=== PATIENT | male | born 1930 | race Caucasian/White ===

== ENCOUNTER 2017-02-05 09:12 | Inpatient (IN) | payer BC, OTHER ==
[~2017-02-05] VITALS: Ht 170.2 cm; Wt 88.0 kg
[~2017-02-05 09:12] MED LIST: ALFU10TA30 PO; APIX1TAB3 PO; CALC600T68 PO; CHOL1000 PO; CLB/200 PO; CLXOPS3 OPR; FINA5TAB4 PO; FRS/40 PO; HYDR-5688 PO; LIDO5DIS10 TD; MIDO2.5T PO; MIDO5TAB PO; MIRA1TAB3 PO; MIRT15TA PO; MRLP17 PO; MULT-506 PO; OMEP40CA PO; RIVA9.5D TD; SENN-61 PO; SNM/25100 PO
--- NOTE | 2017-02-05 10:09 | DIAGNOSTIC IMAGING REPORT ---
CHEST ONE VIEW PORTABLE CLINICAL HISTORY: infection dyspnea COMPARISON STUDY: 08/30/2015 FINDINGS: Moderate stable cardiomegaly. Mild increase in density left base possibly secondary to a superimposed infiltrative process. Moderate parenchymal fibrotic change unaltered from the prior study. IMPRESSION: 1. Diffuse parenchymal fibrosis. 2. Mild superimposed infiltrate left base. 3. Moderate stable cardia megaly. Electronically signed by: Rik Phan M.D. 02/05/2017 10:08 AM Dictated Date/Time: 02/05/2017 10:07 AM
[2017-02-05 10:14] LABS: URINE APPEARANCE CLEAR (CLEAR); URINE COLOR ORANGE; URINE EPITHELIAL CELL AUTO >30 /lpf (0-5); URINE NITRITE NEG (NEG); URINE PH 5.5 (4.5-7.5); URINE SPECIFIC GRAVITY 1.028 (1.000-1.030); UROBILINOGEN NEG (NEG)
[2017-02-05 10:16] LABS: BASO % 0.3 %; BASO ABS # 0.04 K/uL (0-0.2); COMPLETE YES; EOS % 0.1 %; HEMATOCRIT 38.9 % (42-52); IG% 1.1 %; LYMPH % 7.5 %; LYMPH ABS # 1.04 K/uL (1.2-3.4); MEAN CELL VOLUME 98.5 fL (80-100); MEAN CORPUSCULAR HEMOGLOBIN 32.9 pg (25-34); MEAN CORPUSCULAR HGB CONC 33.4 g/dl (32-36); MEAN PLATELET VOLUME 9.4 fL (7.4-10.4); MONO % 7.7 %; NEUT % 83.3 %; PLATELET COUNT 101 K/uL (130-400); RED BLOOD COUNT 3.95 M/uL (4.7-6.1); WHITE BLOOD COUNT 13.88 K/uL (4.8-10.8)
[2017-02-05 10:25] LABS: INR 1.3 (0.9-1.1); PARTIAL THROMBOPLASTIN RATIO 1.3
[2017-02-05] MEDS ORDERED: SODIUM CHLORIDE 0.9% 1000ML 1,000 ML IV STA ×2 (10:28→11:29)
[2017-02-05] MEDS ORDERED: CEFEPIME IV 2,000 MG in DEXTROSE 5% 100ML 100 ML IV STA (10:29)
[2017-02-05] MEDS ORDERED: VANCOMYCIN INJ 1,000 MG in SODIUM CHLORIDE 0.9% 250ML 250 ML IV STA (10:29)
[2017-02-05] MEDS ORDERED: AZITHROMYCIN IV 500 MG in DEXTROSE 5% 250ML 250 ML IV ONE (10:30)
[2017-02-05 10:33] LABS: BUN/CREATININE RATIO 32.2 (10-20); CALCIUM 8.8 mg/dl (8.5-10.1); MAGNESIUM 2.6 mg/dl (1.8-2.4); POTASSIUM 4.1 mmol/L (3.5-5.1)
[2017-02-05] MEDS ORDERED: VANCOMYCIN 1GM/270ML NSS ONE (10:34)
[2017-02-05 10:35] LABS: URINE BILIRUBIN 1+ (NEG)
[2017-02-05 10:36] LABS: ALB/GLOB RATIO 0.6 (0.9-2)
[2017-02-05 10:43] LABS: MANUAL MICROSCOPIC REQUIRED? NO; REVIEW REQ? NO
[2017-02-05] MEDS ORDERED: FRS/40 PO (10:46)
[2017-02-05] MEDS ORDERED: TRAM-10 PO ×2 (10:46→12:07)
[2017-02-05] MEDS ORDERED: ALBINS/ INH (10:46)
[2017-02-05] MEDS ORDERED: PRLSR20 PO (10:46)
[2017-02-05] MEDS ORDERED: LEVO1TAB35 PO (10:46)
[2017-02-05] MEDS ORDERED: FINA5TAB PO (10:46)
[2017-02-05] MEDS ORDERED: RBTDMUDL5 PEG (10:46)
[2017-02-05] MEDS ORDERED: RIVA1DIS TD (10:46)
[2017-02-05] MEDS ORDERED: IBUP-1050 PO (10:46)
[2017-02-05] MEDS ORDERED: NYSS5 PO (10:46)
[2017-02-05] MEDS ORDERED: MULT-513 PO (10:54)
[2017-02-05] MEDS ORDERED: SENN-61 PO (10:54)
[2017-02-05] MEDS ORDERED: CHOL100010 PO (10:54)
[2017-02-05] MEDS ORDERED: POLY335019 PO (10:54)
[2017-02-05] MEDS ORDERED: CALC-342 PO (10:54)
[2017-02-05] MEDS ORDERED: PRMT25 PO (10:54)
[2017-02-05] MEDS ORDERED: APIX1TAB3 PO (10:54)
[2017-02-05] MEDS ORDERED: CARB25TA12 PO (10:54)
[2017-02-05] MEDS ORDERED: ALFU10TA30 PO (10:54)
[2017-02-05] MEDS ORDERED: FESO8TAB PO (10:54)
[2017-02-05] MEDS ORDERED: MELA3TAB PO (10:54)
--- NOTE | 2017-02-05 10:58 | EMERGENCY ROOM VISIT NOTE ---
History Report prepared by Reagan: Violet Kang Under the Supervision of: Dr. Shantelle Frausto D.O. First contact with patient: 10:04 Chief Complaint: INFECTION Stated Complaint: LETHARGIC Nursing Triage Summary: pt arrives via ALS from [facility] per [facility] for the past 2 weeks they have been treating him for an unknown infection He has received levaquin PO and Rocephin IM His left arm is swollen and that is now new He had a fever Friday 02/02 He usually is on Room Air and confused but ambulates with 1 assist pt is rousable to verbal stimuli at this time, states no pain History of Present Illness The patient is a 86 year old male who presents to the Emergency Room with complaints of a worsening infection for the past week. The patient is a resident at [facility]. Per staff there, the patient has had a fever and cough for the past week. He was given 1 dose of Rocephin 3 days ago and it currently on Levaquin. He has also received Solu-Medrol. The patient is normally able to ambulate with a walker and has only occasional confusion. Today he is lethargic and not acting normally. The patient had a negative CXR, negative flu, and negative respiratory panel today. He had a slightly elevated bilirubin. He denied abdominal pain, nausea, and vomiting. He was sent to the ED for further evaluation. The history is limited due to the patient's AMS. Source of History: patient, longterm notes History Limited By: AMS Onset: 1 week ago Position: other (global) Quality: other (infection) Timing: worsening Associated Symptoms: + fevers, + cough, No nausea, No vomiting, No abdominal pain Review of Systems See HPI for pertinent positives & negatives. A total of 10 systems reviewed and were otherwise negative. Past Medical & Surgical Medical Problems: (1) Altered mental status (2) Parkinson's disease (3) Rhabdomyolysis (4) Sepsis Surgical Problems: (1) Knee joint replacement status Family History Patient reports no known family medical history. Social History Smoking Status: Never Smoker Drug Use: none Marital Status: Housing Status: longterm Occupation Status: retired Current/Historical Medications Scheduled Albuterol Sulf (Proventil 0.083% 2.5MG/3ML), 3 ML INH QID Alfuzosin Hcl (Uroxatral), 10 MG PO HS Apixaban (Eliquis), 5 MG PO HS Calcium Carbonate-Vitamin D (Calcium 600+D), 1 TAB PO QAM Carbidopa/Levodopa (Sinemet 25MG/100MG), 2 TAB PO QID Cholecalciferol (Vitamin D), 1,000 UNITS PO QAM Fesoterodine Fumarate (Toviaz), 1 TAB PO DAILY Finasteride (Proscar), 5 MG PO QAM Levofloxacin (Levaquin), 750 MG PO QAM Melatonin (Melatonin), 3 MG PO QPM Midodrine (Midodrine HCl), 2.5 MG PO TID Midodrine Hcl (Midodrine Hcl), 5 MG PO TID Multivitamins/Minerals (Mvi With Minerals), 1 TAB PO DAILY Nystatin (Nystatin), 5 ML PO QID Omeprazole (Prilosec), 20 MG PO QAM Polyethylene Glycol 3350 (Miralax), 17 GM PO QAM Rivastigmine (Exelon), 1 PATCH TD QAM Senna (Senokot), 1 TAB PO QAM Tramadol (Ultram), 25 MG PO AMPM Scheduled PRN Dextromethorphan-Guaifenesin (Robitussin-Dm Syrup), 10 ML PEG Q6 PRN for Cough Furosemide (Lasix), 40 MG PO PRN PRN for WEIGHT GAIN Ibuprofen (Advil), 200 MG PO Q4 PRN for Fever Tramadol (Ultram), 25 MG PO Q12 PRN for Breakthrough Pain Allergies Coded Allergies: Acetaminophen (Verified Adverse Reaction, Mild, 08/30/15) "BAD FOR MY LIVER" Physical Exam Vital Signs Date Time Temp Pulse Resp B/P (MAP) Pulse Ox O2 Delivery O2 Flow Rate FiO2 02/05/17 13:08 77 02/05/17 12:57 78 35 123/75 96 02/05/17 12:06 75 30 02/05/17 12:01 122/69 02/05/17 11:51 75 31 02/05/17 11:46 113/62 02/05/17 11:36 73 34 02/05/17 11:31 107/77 02/05/17 11:21 73 31 02/05/17 11:16 108/65 02/05/17 11:06 72 29 02/05/17 11:00 117/67 02/05/17 10:51 68 35 02/05/17 10:46 115/63 02/05/17 10:36 76 31 02/05/17 10:31 120/72 02/05/17 10:27 78 32 02/05/17 10:16 149/76 02/05/17 10:12 85 25 02/05/17 10:01 106/65 02/05/17 09:58 37.6 104 32 97/62 92 Nasal Cannula 4.0 02/05/17 09:57 64 30 97/62 92 02/05/17 09:55 104 32 97/62 92 Nasal Cannula 4.0 02/05/17 09:52 37.6 02/05/17 09:42 86 32 87 02/05/17 09:32 105/64 02/05/17 09:27 81 22 02/05/17 09:19 76 02/05/17 09:17 37.6 83 14 94/62 94 Nasal Cannula 2.0 02/05/17 09:15 94/62 Physical Exam GENERAL: warm to touch, pale appearing, well nourished, no distress, non-toxic EYE EXAM: normal conjunctiva, pupils reactive bilaterally, discharge bilaterally , no evidence of conjunctivitis, no periorbital edema. OROPHARYNX: no exudate, no erythema. Lips, buccal mucosa, and tongue normal and mucous membranes are dry. No mucocutaneous lesions. NECK: supple, no nuchal rigidity, no adenopathy, non-tender LUNGS: Fine bibasilar rales. Normal chest wall mechanics HEART: no murmurs, S1 normal and S2 normal ABDOMEN: abdomen soft, non-tender, normo-active bowel sounds, no masses, no rebound or guarding. BACK: Back is symmetrical on inspection and there is no deformity, no midline tenderness, no CVA tenderness. SKIN: no rashes. Bruising of various stages to bother upper extremities UPPER EXTREMITIES: Mild left upper extremity edema. LOWER EXTREMITIES: No pitting edema. Bilateral scars from knee replacements. NEURO EXAM: Patient is arousable, will talk but confused, won't follow commands to complete a neuro exam. Medical Decision & Procedures ER Provider Diagnostic Interpretation: Radiology results have been interpreted by the radiologist and reviewed by me. CHEST ONE VIEW PORTABLE CLINICAL HISTORY: infection dyspnea COMPARISON STUDY: 08/30/2015 FINDINGS: Moderate stable cardiomegaly. Mild increase in density left base possibly secondary to a superimposed infiltrative process. Moderate parenchymal fibrotic change unaltered from the prior study. IMPRESSION: 1. Diffuse parenchymal fibrosis. 2. Mild superimposed infiltrate left base. 3. Moderate stable cardiomegaly. Electronically signed by: Rik Phan M.D. 02/05/2017 10:08 AM Dictated Date/Time: 02/05/2017 10:[address] NON[address]AST CT DOSE: 614.27 mGy.cm HISTORY: Mental status change confusion TECHNIQUE: Multiaxial CT images of the head were performed without the use of intravenous contrast. 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 HISTORY: Of subacute left occipital infarct. Mild chronic small vessel changes identified throughout both cerebral hemispheres. This may be slightly progressive compared to the prior study. There is no evidence for acute intracranial hemorrhage. There is no midline shift. Impression: 1. Subacute left occipital infarct. 2. Moderate chronic small vessel change. 3. No evidence for acute intracranial hemorrhage. Electronically signed by: Rik Phan M.D. 02/05/2017 12:34 PM Dictated Date/Time: 02/05/2017 12:31 PM ULTRASOUND LEFT UPPER EXTREMITY VENOUS CLINICAL HISTORY: Upper extremity edema. COMPARISON STUDY: No priors. TECHNIQUE: Real-time, grayscale, and color Doppler sonography of the deep veins of the left upper extremity is performed. Compression and augmentation were utilized. FINDINGS: There is no sonographic evidence of deep venous thrombosis identified in the left upper extremity. The left internal jugular, axillary, and brachial veins are patent and normally compressible. Normal venous waveforms and augmentation are seen within the left subclavian vein. The cephalic and basilic veins are clear. The visualized radial and ulnar veins are patent. IMPRESSION: There is no sonographic evidence of deep venous thrombosis identified in the left upper extremity. Electronically signed by: Manpreet Potter M.D. 02/05/2017 1:03 PM Dictated Date/Time: 02/05/2017 12:50 PM Laboratory Results Test 02/05/17 00:00 02/05/17 09:49 02/05/17 10:35 Urine Color ORANGE Urine Appearance CLEAR (CLEAR) Urine pH 5.5 (4.5-7.5) Urine Specific Seibert 1.028 (1.000-1.030) Urine Protein 1+ (NEG) Urine Glucose (UA) NEG (NEG) Urine Ketones TRACE (NEG) Urine Occult Blood NEG (NEG) Urine Nitrite NEG (NEG) Urine Bilirubin 1+ (NEG) Urine Urobilinogen NEG (NEG) Urine Leukocyte Esterase TRACE (NEG) Urine WBC (Auto) 1-5 /hpf (0-5) Urine RBC (Auto) 0-4 /hpf (0-4) Urine Hyaline Casts (Auto) 1-5 /lpf (0-5) Urine Epithelial Cells (Auto) >30 /lpf (0-5) Urine Bacteria (Auto) NEG (NEG) Nucleated RBC Absolute Count (auto) 0.03 K/uL (0-0) Nucleated Red Blood Cells % 0.2 % Prothrombin Time 14.0 SECONDS (9.0-12.0) Prothromb Time International Ratio 1.3 (0.9-1.1) Activated Partial Thromboplast Time 33.2 SECONDS (21.0-31.0) Partial Thromboplastin Ratio 1.3 Magnesium Level 2.6 mg/dl (1.8-2.4) Total Bilirubin 1.8 mg/dl (0.2-1) Aspartate Amino Transf (AST/SGOT) 37 U/L (15-37) Alanine Aminotransferase (ALT/SGPT) 16 U/L (12-78) Alkaline Phosphatase 60 U/L (45-117) Pro-B-Type Natriuretic Peptide 3606 pg/ml (0-1800) Total Protein 5.6 gm/dl (6.4-8.2) Albumin 2.2 gm/dl (3.4-5.0) Globulin 3.4 gm/dl (2.5-4.0) Albumin/Globulin Ratio 0.6 (0.9-2) Thyroid Stimulating Hormone (TSH) 0.544 uIu/ml (0.300-4.500) Bedside Lactic Acid Venous 2.14 mmol/L (0.90-1.70) Laboratory results per my review. Medications Administered Medications (Trade) Dose Ordered Sig/Khurram Route Start Time Stop Time Status Last Admin Dose Admin Sodium Chloride 1,000 ml @ 999 mls/hr Q1H1M STAT IV 02/05/17 10:28 02/05/17 11:28 DC 02/05/17 10:43 999 MLS/HR Vancomycin HCl 1000 mg/Sodium Chloride 270 ml @ 125 mls/hr NOW STAT IV 02/05/17 10:29 02/05/17 12:38 DC 02/05/17 10:29 125 MLS/HR Azithromycin 500 mg/Dextrose 255 ml @ 125 mls/hr ONE ONCE IV 02/05/17 10:30 02/05/17 12:32 DC 02/05/17 11:23 125 MLS/HR Cefepime HCl 2000 mg/Dextrose 112.5 ml @ 200 mls/hr NOW STAT IV 02/05/17 10:29 02/05/17 11:02 DC 02/05/17 10:45 200 MLS/HR Sodium Chloride 1,000 ml @ 250 mls/hr Q4H STAT IV 02/05/17 11:29 02/05/17 15:28 DC 02/05/17 11:29 250 MLS/HR Aspirin (Aspirin Supp) 300 mg NOW STAT OK 02/05/17 11:48 02/05/17 11:50 DC 02/05/17 11:48 300 MG ECG Indication: weakness Rate (beats per minute): 82 Rhythm: atrial fibrillation Findings: PVC, no acute ischemic change, other (normal axis, normal QRS, normal QTC) ED Course 1004: The patient was evaluated in room B11B. A complete history and physical exam was performed. 1028: NSS 1000 ml @ 999 mls/hr IV 1029: Cefepime HCl 2000 mg/Dextrose 112.5 ml @ 200 mls/hr IV, Vancomycin HCl 1000 mg/Sodium Chloride 270 ml @ 125 mls/hr IV 1030: Azithromycin 500 mg/Dextrose 255 ml @ 125 mls/hr IV 1129: NSS 1000 ml @ 250 mls/hr IV 1138: I reassessed the patient at this time. His daughter was at the bedside and states that he is altered from his baseline.She spoke with him on Sunday and he was acting normally. She reports that his left upper extremity swelling is new. She did confirm his code status as DNR/DNI. 1148: Aspirin 300 mg OK 1239: The patient is resting comfortably. I updated the patient's daughter on the results and treatment plan. I answered all pertaining questions that she had. She expressed understanding and verbalized agreement. 1251: I spoke with Dr. Velasquez. We discussed the patient's case. The patient will be evaluated by the [facility] for further management. Medical Decision Differential diagnosis includes etiologies such as sepsis, UTI, pneumonia, metabolic, electrolyte abnormalities, cardiac sources, intracerebral event, toxicologic, neurologic, as well as others were entertained. Medication Reconciliation: I attest that I have personally reviewed the patient' s current medication list. Blood pressure screening: Patient was found to be hypotensive on screening and does not require follow-up. Initially difficult exam given patient's past medical history and inability to provide adequate history. [facility] records are reviewed and is ordered. Patient improved here following hydration, and family eventually arrived to help with history and provide better baseline for the patient. Patient was confirmed to be DNR/DNI. Patient found to be septic, cultures drawn antibiotics started. Patient also found have subacute CVA additional imaging ordered after discussion with hospitalist. Patient given aspirin for elevated troponin as well as subacute infarct. Patient anticoagulated for his A. fib. No evidence of bleeding. Patient's vital signs improved here were stable in the emergency room. Did not feel patient required ICU level care at this time. Patient high-risk for deterioration, this was discussed with she and family at bedside, they verbalized understanding of all results as discussed were agreeable with plan for admission. Consults Time Called: 1240 Consulting Physician: Dr. Velasquez Returned Call: [address] Velasquez. We discussed the patients case. The patient will be evaluated by the [facility] for further management. Impression Primary Impression: Sepsis Additional Impressions: Pneumonia Altered mental status Left upper extremity swelling Elevated troponin Dehydration CVA (cerebral vascular accident) Critical Care I have personally spent greater than 40 minutes of critical care time in the direct management of this patient. This includes bedside care, interpretation of diagnostic studies, and testing, discussion with consultants, patient, and family members, and other required patient management activities. This 40 minutes is in excess of all separately billable procedures. Scribe Attestation The scribe's documentation has been prepared under my direction and personally reviewed by me in its entirety. I confirm that the note above accurately reflects all work, treatment, procedures, and medical decision making performed by me. Departure Information Dispostion Being Evaluated By Hospitalist Referrals Darrius Cardoza M.D. (PCP) Patient Instructions My [facility] Problem Qualifiers Primary Impression: Sepsis Sepsis type: sepsis due to unspecified organism Qualified Codes: A41.9 - Sepsis, unspecified organism Additional Impressions: Pneumonia Pneumonia type: due to unspecified organism Laterality: left Lung location : lower lobe of lung Qualified Codes: J18.1 - Lobar pneumonia, unspecified organism Altered mental status Altered mental status type: unspecified Qualified Codes: R41.82 - Altered mental status, unspecified CVA (cerebral vascular accident) CVA mechanism: unspecified Qualified Codes: I63.9 - Cerebral infarction, unspecified
[2017-02-05 11:16] LABS: THYROID STIMULATING HORMONE 0.544 uIu/ml (0.300-4.500)
[2017-02-05] MEDS ORDERED: ASPIRIN 300 MG SUPP PR STA (11:48)
[2017-02-05] MEDS ORDERED: MIDO5TAB PO (12:05)
--- NOTE | 2017-02-05 12:35 | DIAGNOSTIC IMAGING REPORT ---
HEAD CT NONCONTRAST CT DOSE: 614.27 mGy.cm HISTORY: Mental status change confusion TECHNIQUE: Multiaxial CT images of the head were performed without the use of intravenous contrast. 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 HISTORY: Of subacute left occipital infarct. Mild chronic small vessel changes identified throughout both cerebral hemispheres. This may be slightly progressive compared to the prior study. There is no evidence for acute intracranial hemorrhage. There is no midline shift. Impression: 1. Subacute left occipital infarct. 2. Moderate chronic small vessel change. 3. No evidence for acute intracranial hemorrhage. Electronically signed by: Rik Phan M.D. 02/05/2017 12:34 PM Dictated Date/Time: 02/05/2017 12:31 PM
--- NOTE | 2017-02-05 13:04 | DIAGNOSTIC IMAGING REPORT ---
ULTRASOUND LEFT UPPER EXTREMITY VENOUS CLINICAL HISTORY: Upper extremity edema. COMPARISON STUDY: No priors. TECHNIQUE: Real-time, grayscale, and color Doppler sonography of the deep veins of the left upper extremity is performed. Compression and augmentation were utilized. FINDINGS: There is no sonographic evidence of deep venous thrombosis identified in the left upper extremity. The left internal jugular, axillary, and brachial veins are patent and normally compressible. Normal venous waveforms and augmentation are seen within the left subclavian vein. The cephalic and basilic veins are clear. The visualized radial and ulnar veins are patent. IMPRESSION: There is no sonographic evidence of deep venous thrombosis identified in the left upper extremity. Electronically signed by: Manpreet Potter M.D. 02/05/2017 1:03 PM Dictated Date/Time: 02/05/2017 12:50 PM
[2017-02-05] MEDS ORDERED: ALUMINUM/MAGNESIUM/SIMETH (MAALOX MAX) 30 ML UDC PO PRN (14:00)
[2017-02-05] MEDS ORDERED: ONDANSETRON INJ 2 MG/ML 2 ML VIAL IV PRN (14:00)
[2017-02-05] MEDS ORDERED: MAGNESIUM HYDROXIDE SUSP 30 ML UDC PO PRN (14:00)
[2017-02-05] MEDS ORDERED: POLYETHYLENE (MIRALAX) 17 GM PACK PO PRN (14:00)
[2017-02-05] MEDS ORDERED: TRAMADOL HCL 50 MG TAB PO PRN (14:15)
[2017-02-05] MEDS ORDERED: IBUPROFEN 200 MG TAB PO PRN (14:15)
[2017-02-05] MEDS ORDERED: PIPERACILL/TAZOBAC CONSULT ACTIVE PRN (14:30)
[2017-02-05] MEDS ORDERED: VANCOMYCIN CONSULT ACTIVE PRN (14:30)
--- NOTE | 2017-02-05 14:48 | History and Physical ---
History & Physical Date & Time of Service: Feb 05, 2017 at 14:19 Chief Complaint: Lethargic Primary Care Physician: Darrius Cardoza M.D. History of Present Illness Source: patient, family (daughter at bedside), clinic records, hospital records , half-way This is an 86 y/o male with a history of atrial fibrillation, BPH, diastolic CHF , Parkinson's disease w/dementia, and alcoholic cirrhosis who presented to the ED on 02/05 with altered mental status. The patient is resident of [facility]. History was obtained largely from patient's daughter who is at bedside. The patient had been having fever and a nonproductive cough for [facility] for the last week or so. The patient had a fever of 103F on and was then given a dose of Rocephin IM before being transitioned to oral Levaquin. The patient continued to become more lethargic and altered. The daughter states this patient is typically fairly well-oriented and only occasionally confused, but for the last few days he has been disoriented and less responsive than usual. The patient does not typically wear oxygen and is usually able to get up and move around with the help of a walker. Unable to obtain reliable review of systems from patient due to altered mental status. Past Medical/Surgical History Medical Problems: (1) Parkinson's disease Status: Chronic (2) Rhabdomyolysis Status: Resolved Atrial fibrillatoin BPH Diastolic CHF Dementia associated with Parkinson's disease Alcoholic cirrhosis Surgical Problems: (1) Knee joint replacement status Status: Resolved Family History Breast cancer Colon cancer Social History Smoking Status: Never Smoker Smokeless Tobacco Use: No Alcohol Use: none Drug Use: none Marital Status: Housing status: half-way Occupational Status: retired Immunizations History of Influenza Vaccine: Yes History of Tetanus Vaccine?: Yes History of Pneumococcal: Yes History of Hepatitis B Vaccine: No Multi-Drug Resistant Organisms History of MDRO: No Allergies Coded Allergies: Acetaminophen (Verified Adverse Reaction, Mild, 08/30/15) "BAD FOR MY LIVER" Home Medications Scheduled Albuterol Sulf (Proventil 0.083% 2.5MG/3ML), 3 ML INH QID Alfuzosin Hcl (Uroxatral), 10 MG PO HS Apixaban (Eliquis), 5 MG PO HS Calcium Carbonate-Vitamin D (Calcium 600+D), 1 TAB PO QAM Carbidopa/Levodopa (Sinemet 25MG/100MG), 2 TAB PO QID Cholecalciferol (Vitamin D), 1,000 UNITS PO QAM Fesoterodine Fumarate (Toviaz), 1 TAB PO DAILY Finasteride (Proscar), 5 MG PO QAM Levofloxacin (Levaquin), 750 MG PO QAM Melatonin (Melatonin), 3 MG PO QPM Midodrine (Midodrine HCl), 2.5 MG PO TID Midodrine Hcl (Midodrine Hcl), 5 MG PO TID Multivitamins/Minerals (Mvi With Minerals), 1 TAB PO DAILY Nystatin (Nystatin), 5 ML PO QID Omeprazole (Prilosec), 20 MG PO QAM Polyethylene Glycol 3350 (Miralax), 17 GM PO QAM Rivastigmine (Exelon), 1 PATCH TD QAM Senna (Senokot), 1 TAB PO QAM Tramadol (Ultram), 25 MG PO AMPM Scheduled PRN Dextromethorphan-Guaifenesin (Robitussin-Dm Syrup), 10 ML PEG Q6 PRN for Cough Furosemide (Lasix), 40 MG PO PRN PRN for WEIGHT GAIN Ibuprofen (Advil), 200 MG PO Q4 PRN for Fever Tramadol (Ultram), 25 MG PO Q12 PRN for Breakthrough Pain Review of Systems Unable to obtain reliable ROS from patient due to mental status. Physical Exam Vital Signs Date Time Temp Pulse Resp B/P (MAP) Pulse Ox O2 Delivery O2 Flow Rate FiO2 02/05/17 13:08 77 02/05/17 12:57 78 35 123/75 96 02/05/17 12:06 75 30 02/05/17 12:01 122/69 02/05/17 11:51 75 31 02/05/17 11:46 113/62 02/05/17 11:36 73 34 02/05/17 11:31 107/77 02/05/17 11:21 73 31 02/05/17 11:16 108/65 02/05/17 11:06 72 29 02/05/17 11:00 117/67 02/05/17 10:51 68 35 02/05/17 10:46 115/63 02/05/17 10:36 76 31 02/05/17 10:31 120/72 7/3/17 10:27 78 32 02/05/17 10:16 149/76 02/05/17 10:12 85 25 02/05/17 10:01 106/65 02/05/17 09:58 37.6 104 32 97/62 92 Nasal Cannula 4.0 02/05/17 09:57 64 30 97/62 92 02/05/17 09:55 104 32 97/62 92 Nasal Cannula 4.0 02/05/17 09:52 37.6 02/05/17 09:42 86 32 87 02/05/17 09:32 105/64 02/05/17 09:27 81 22 02/05/17 09:19 76 02/05/17 09:17 37.6 83 14 94/62 94 Nasal Cannula 2.0 02/05/17 09:15 94/62 General appearance: +Obese. Lethargic. Well-developed, well-nourished, no apparent distress Head: Normocephalic, atraumatic Eyes: +Unable to assess EOM due to mental status. Normal inspection, PERRL ENT: +Dry oral mucosa. Normal ENT inspection, hearing grossly normal, pharynx normal Neck: Supple, no JVD, trachea midline Respiratory/Chest: +Crackles diffuse throughout. Dyspneic, mild respiratory distress. Appears to be using accessory muscles. Cardiovascular: +Irregularly irregular, rate controlled. Systolic murmur. No gallop Abdomen/GI: Normal bowel sounds, non-tender, soft Extremities/Musculoskeletal: +LUE edematous. Normal inspection, no calf tenderness, no pedal edema Neurological/Psych: +Disoriented to place and time (knew month but not year). Lethargic. Normal mood/affect Skin: Normal color, warm/dry, no rash Diagnostics Laboratory Results Results Past 24 Hours Test 02/05/17 00:00 02/05/17 09:49 02/05/17 10:35 02/05/17 13:47 Range/Units Urine Color ORANGE Urine Appearance CLEAR CLEAR Urine pH 5.5 4.5-7.5 Urine Specific [place] 1.028 1.000-1.030 Urine Protein 1+ NEG Urine Glucose (UA) NEG NEG Urine Ketones TRACE NEG Urine Occult Blood NEG NEG Urine Nitrite NEG NEG Urine Bilirubin 1+ NEG Urine Urobilinogen NEG NEG Urine Leukocyte Esterase TRACE NEG Urine WBC (Auto) 1-5 0-5 /hpf Urine RBC (Auto) 0-4 0-4 /hpf Urine Hyaline Casts (Auto) 1-5 0-5 /lpf Urine Epithelial Cells (Auto) >30 0-5 /lpf Urine Bacteria (Auto) NEG NEG White Blood Count 13.88 4.8-10.8 K/uL Red Blood Count 3.95 4.7-6.1 M/uL Hemoglobin 13.0 14.0-18.0 g/dL Hematocrit 38.9 42-52 % Mean Corpuscular Volume 98.5 80-100 fL Mean Corpuscular Hemoglobin 32.9 25-34 pg Mean Corpuscular Hemoglobin Concent 33.4 32-36 g/dl Platelet Count 101 130-400 K/uL Mean Platelet Volume 9.4 7.4-10.4 fL Neutrophils (%) (Auto) 83.3 % Lymphocytes (%) (Auto) 7.5 % Monocytes (%) (Auto) 7.7 % Eosinophils (%) (Auto) 0.1 % Basophils (%) (Auto) 0.3 % Neutrophils # (Auto) 11.56 1.4-6.5 K/uL Lymphocytes # (Auto) 1.04 1.2-3.4 K/uL Monocytes # (Auto) 1.07 0.11-0.59 K/uL Eosinophils # (Auto) 0.02 0-0.5 K/uL Basophils # (Auto) 0.04 0-0.2 K/uL RDW Standard Deviation 49.8 36.4-46.3 fL RDW Coefficient of Variation 13.8 11.5-14.5 % Immature Granulocyte % (Auto) 1.1 % Immature Granulocyte # (Auto) 0.15 0.00-0.02 K/uL Nucleated RBC Absolute Count (auto) 0.03 0-0 K/uL Nucleated Red Blood Cells % 0.2 % Prothrombin Time 14.0 9.0-12.0 SECONDS Prothromb Time International Ratio 1.3 0.9-1.1 Activated Partial Thromboplast Time 33.2 21.0-31.0 SECONDS Partial Thromboplastin Ratio 1.3 Sodium Level 148 136-145 mmol/L Potassium Level 4.1 3.5-5.1 mmol/L Chloride Level 114 98-107 mmol/L Carbon Dioxide Level 26 21-32 mmol/L Anion Gap 8.0 3-11 mmol/L Blood Urea Nitrogen 32 7-18 mg/dl Creatinine 1.00 0.60-1.40 mg/dl Est Creatinine Clear Calc Drug Dose 57.2 ml/min Estimated GFR () 79.2 Estimated GFR (Non- 68.3 BUN/Creatinine Ratio 32.2 10-20 Random Glucose 113 70-99 mg/dl Calcium Level 8.8 8.5-10.1 mg/dl Magnesium Level 2.6 1.8-2.4 mg/dl Total Bilirubin 1.8 0.2-1 mg/dl Aspartate Amino Transf (AST/SGOT) 37 15-37 U/L Alanine Aminotransferase (ALT/SGPT) 16 12-78 U/L Alkaline Phosphatase 60 45-117 U/L Troponin I 2.210 0-0.045 ng/ml Pro-B-Type Natriuretic Peptide 3606 0-1800 pg/ml Total Protein 5.6 6.4-8.2 gm/dl Albumin 2.2 3.4-5.0 gm/dl Globulin 3.4 2.5-4.0 gm/dl Albumin/Globulin Ratio 0.6 0.9-2 Thyroid Stimulating Hormone (TSH) 0.544 0.300-4.500 uIu/ml Bedside Lactic Acid Venous 2.14 0.90-1.70 mmol/L Microbiology Results 02/05/17 Blood Culture, Received Pending 02/05/17 Blood Culture, Received Pending 02/05/17 Urine Culture, Received Pending Diagnostic Radiology Reviewed the following studies and agree with interpretation as follows: Patient Name: Sarah ORTIZ Unit Number: [id number] Dictated: 02/05/171230 Transcribed: 02/05/171230 MS Printed Date/Time: [~ rep prt dt]/[~ rep prt tm] [~ rep ct labl] - [~ rep ct ivnm] [facility] [place] [address] Dictated: 02/05/171230 Transcribed: 02/05/17 123 MS Printed Date/Time: [~ rep prt dt]/[~ rep prt tm] [~ rep ct labl] - [~ rep ct ivnm] Patient: Sarah ORTIZ Address1: [address] Em Rec: [id number] Address2: [address] Acct ID: [id number] [facility] Zip: [place] [address] Date: 1930 Sex: M Room/Bed: Ref Phy: Darrius Cardoza M.D. SC: MARILU Att Phy: Report #: [id number] [place] Phy: Darrius Cardoza M.D. Test: HWO Admit Phy: Emergency Medicine Physician: NIKKI Interpreting Phy: Rik Phan M.D. Diagnosis: LETHARGIC Ordering Phy: Shantelle Frausto DO Service Date: 02/05/17 Admit Date: 02/05/17 MNE: PWRSCRIBE CONF: DICTATED BY: Rik Phan M.D.]] CC: Shantelle Frausto, Darrius Tenorio M.D. Endcc: [~ rep ct add3]] HEAD CT NONCONTRAST CT DOSE: 614.27 mGy.cm HISTORY: Mental status change confusion TECHNIQUE: Multiaxial CT images of the head were performed without the use of intravenous contrast. 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 HISTORY: Of subacute left occipital infarct. Mild chronic small vessel changes identified throughout both cerebral hemispheres. This may be slightly progressive compared to the prior study. There is no evidence for acute intracranial hemorrhage. There is no midline shift. Impression: 1. Subacute left occipital infarct. 2. Moderate chronic small vessel change. 3. No evidence for acute intracranial hemorrhage. Electronically signed by: Rik Phan M.D. 02/05/2017 12:34 PM Dictated Date/Time: 02/05/2017 12:31 PM The status of this report is Signed. Draft = Not yet reviewed or approved by Radiologist. Signed = Reviewed and approved by Radiologist. <AttendingPhy></AttendingPhy> <FamilyPhy>Darrius Cardoza M.D.</FamilyPhy> < PrimaryPhy>Darrius Cardoza M.D.</PrimaryPhy> <UnitNumber>[id number]</UnitNumber > <VisitNumber>[id number]</VisitNumber> <PatientName>Sarah ORTIZ</PatientName > <DateOfBirth>1930</DateOfBirth> <Location>[facility]</Location> <ServiceDate> 02/05/17</ServiceDate> <MNE>ESINDI</MNE> <OrderingPhy>PheShantelle ambrose DO</ OrderingPhy> <OrderingPhyMNE>f rep ord dr lovelace</OrderingPhyMNE> <DictatingPhyMNE> f rep dict dr lovelace</DictatingPhyMNE> <CCListMNE>f rep ct mne</CCListMNE> < AdmittingPhyMNE>f pt admit dr lovelace</AdmittingPhyMNE> <AttendingPhyMNE>f pt attend dr lovelace</AttendingPhyMNE> <ConsultingPhyMNE>f pt consult dr lovelace</ConsultingPhyMNE> <FamilyPhyMNE>f pt fam dr lovelace</FamilyPhyMNE> <OtherPhyMNE>f pt other dr lovelace</OtherPhyMNE> < PrimaryPhyMNE>f pt prim care dr lovelace</PrimaryPhyMNE> <ReferringPhyMNE>f pt referring dr lovelace</ReferringPhyMNE> Patient Name: Sarah ORTIZ Unit Number: [id number] Dictated: 02/05/171006 Transcribed: 02/05/17 1007 MS Printed Date/Time: [~ rep prt dt]/[~ rep prt tm] [~ rep ct labl] - [~ rep ct ivnm] [facility] Radiology Department [place], [place] [id number] Dictated: 02/05/17 1007 Transcribed: 02/05/17 1007 MS Printed Date/Time: [~ rep prt dt]/[~ rep prt tm] [~ rep ct labl] - [~ rep ct ivnm] Patient: Sarah ORTIZ Address1: [address] Em Rec: [id number] Address2: [address] [facility] Acct ID: [id number] [facility] Zip: [place] [address] Date: 1930 Sex: M Room/Bed: Ref Phy: Darrius Cardoza M.D. SC: C.EDB Att Phy: Report #: [id number] [place] Phy: Darrius Cardoza M.D. Test: CXR1P Admit Phy: Emergency Medicine Physician: JEFFREY Interpreting Phy: Rik Phan M.D. Diagnosis: LETHARGIC Ordering Phy: ED, PROTOCOL Service Date: 02/05/17 Admit Date: 02/05/17 MNE: PWRSCRIBE CONF: DICTATED BY: Rik Phan M.D.]] CC: ED,PROTOCOL Shantelle Frausto, DO Darrius Cardoza M.D. Endcc: [~ rep ct add3]] CHEST ONE VIEW PORTABLE CLINICAL HISTORY: infection dyspnea COMPARISON STUDY: 08/30/2015 FINDINGS: Moderate stable cardiomegaly. Mild increase in density left base possibly secondary to a superimposed infiltrative process. Moderate parenchymal fibrotic change unaltered from the prior study. IMPRESSION: 1. Diffuse parenchymal fibrosis. 2. Mild superimposed infiltrate left base. 3. Moderate stable cardia megaly. Electronically signed by: Rik Phan M.D. 02/05/2017 10:08 AM Dictated Date/Time: 02/05/2017 10:07 AM The status of this report is Signed. Draft = Not yet reviewed or approved by Radiologist. Signed = Reviewed and approved by Radiologist. <AttendingPhy></AttendingPhy> <FamilyPhy>Darrius Cardoza M.D.</FamilyPhy> < PrimaryPhy>Darrius Cardoza M.D.</PrimaryPhy> <UnitNumber>[id number]</UnitNumber > <VisitNumber>[id number]</VisitNumber> <PatientName>Sarah ORTIZ</PatientName > <DateOfBirth>1930</DateOfBirth> <Location>C.EDB</Location> <ServiceDate> 02/05/17</ServiceDate> <MNE>ESINDI</MNE> <OrderingPhy>ED, PROTOCOL</OrderingPhy > <OrderingPhyMNE>f rep ord mne</OrderingPhyMNE> <DictatingPhyMNE>f rep dict mne</DictatingPhyMNE> <CCListMNE>f rep ct mne</CCListMNE> <AdmittingPhyMNE>f pt admit dr lovelace</AdmittingPhyMNE> <AttendingPhyMNE>f pt attend dr lovelace</ AttendingPhyMNE> <ConsultingPhyMNE>f pt consult dr lovelace</ConsultingPhyMNE> <FamilyPhyMNE>f pt fam dr lovelace</FamilyPhyMNE> <OtherPhyMNE>f pt other dr lovelace</OtherPhyMNE> < PrimaryPhyMNE>f pt prim care dr lovelace</PrimaryPhyMNE> <ReferringPhyMNE>f pt referring dr lovelace</ReferringPhyMNE> Patient Name: Sarah ORTIZ Unit Number: [id number] Dictated: 02/05/171249 Transcribed: 02/05/171249 EV Printed Date/Time: [~ rep prt dt]/[~ rep prt tm] [~ rep ct labl] - [~ rep ct ivnm] [facility] [place] [place] [address] Dictated: 02/05/171249 Transcribed: 02/05/171249 EV Printed Date/Time: [~ rep prt dt]/[~ rep prt tm] [~ rep ct labl] - [~ rep ct ivnm] Patient: Sarah ORTIZ Address1: [address] Em Rec: [id number] Address2: [facility] Acct ID: [id number] [facility] Zip: [place] [address] Date: 1930 Sex: M Room/Bed: Ref Phy: Darrius Cardoza M.D. SC: MARILU Att Phy: Report #: [id number] [place] Phy: Darrius Cardoza M.D. Test: VDUEU Admit Phy: Emergency Medicine Physician: IRA Interpreting Phy: Manpreet Potter M.D. Diagnosis: LETHARGIC Ordering Phy: Shantelle Frausto DO Service Date: 02/05/17 Admit Date: 02/05/17 MNE: PWRSCRIBE CONF: DICTATED BY: Manpreet Potter M.D.]] CC: Pheasant, ShantelleDO Sony Sánchez Jeffrey W., M.D. Endcc: [~ rep ct add3]] ULTRASOUND LEFT UPPER EXTREMITY VENOUS CLINICAL HISTORY: Upper extremity edema. COMPARISON STUDY: No priors. TECHNIQUE: Real-time, grayscale, and color Doppler sonography of the deep veins of the left upper extremity is performed. Compression and augmentation were utilized. FINDINGS: There is no sonographic evidence of deep venous thrombosis identified in the left upper extremity. The left internal jugular, axillary, and brachial veins are patent and normally compressible. Normal venous waveforms and augmentation are seen within the left subclavian vein. The cephalic and basilic veins are clear. The visualized radial and ulnar veins are patent. IMPRESSION: There is no sonographic evidence of deep venous thrombosis identified in the left upper extremity. Electronically signed by: Manpreet Potter M.D. 02/05/2017 1:03 PM Dictated Date/Time: 02/05/2017 12:50 PM The status of this report is Signed. Draft = Not yet reviewed or approved by Radiologist. Signed = Reviewed and approved by Radiologist. <AttendingPhy></AttendingPhy> <FamilyPhy>Darrius Cardoza M.D.</FamilyPhy> < PrimaryPhy>Darrius Cardoza M.D.</PrimaryPhy> <UnitNumber>[id number]</UnitNumber > <VisitNumber>[id number]</VisitNumber> <PatientName>DIANASarah PAULINO</PatientName > <DateOfBirth>1930</DateOfBirth> <Location>C.EDB</Location> <ServiceDate> 02/05/17</ServiceDate> <MNE>ESINDI</MNE> <OrderingPhy>Shantelle Frausto DO</ OrderingPhy> <OrderingPhyMNE>f rep ord dr lovelace</OrderingPhyMNE> <DictatingPhyMNE> f rep dict dr lovelace</DictatingPhyMNE> <CCListMNE>f rep ct mne</CCListMNE> < AdmittingPhyMNE>f pt admit dr lovelace</AdmittingPhyMNE> <AttendingPhyMNE>f pt attend dr lovelace</AttendingPhyMNE> <ConsultingPhyMNE>f pt consult dr lovelace</ConsultingPhyMNE> <FamilyPhyMNE>f pt fam dr lovelace</FamilyPhyMNE> <OtherPhyMNE>f pt other dr lovelace</OtherPhyMNE> < PrimaryPhyMNE>f pt prim care dr lovelace</PrimaryPhyMNE> <ReferringPhyMNE>f pt referring dr lovelace</ReferringPhyMNE> Patient Name: Sarah ORTIZ Unit Number: [id number] Dictated: 02/05/171507 Transcribed: 02/05/171507 ARG Printed Date/Time: [~ rep prt dt]/[~ rep prt tm] [~ rep ct labl] - [~ rep ct ivnm] [facility] [place] [place] [address] Dictated: 02/05/171507 Transcribed: 02/05/171507 ARG Printed Date/Time: [~ rep prt dt]/[~ rep prt tm] [~ rep ct labl] - [~ rep ct ivnm] Patient: Sarah ORTIZ Address1: [address] Em Rec: [id number] Address2: [facility] Acct ID: [id number] [facility] Zip: [place] [address] Date: 1930 Sex: M Room/Bed: Ref Phy: Darrius Cardoza M.D. SC: MARILU Att Phy: Report #: [id number] [place] Phy: Darrius Cardoza M.D. Test: [facility] Admit Phy: Emergency Medicine Physician: YESICA Interpreting Phy: Chidi Jacobsen M.D. Diagnosis: LETHARGIC Ordering Phy: Shantelle Frausto DO Service Date: 02/05/17 Admit Date: 02/05/17 MNE: PWRSCRIBE CONF: DICTATED BY: Chidi Jacobsen M.D.]] CC: Shantelle Frausto DO Pro, Jeffrey W., M.D. Endcc: [~ rep ct add3]] MRI OF THE BRAIN WITHOUT AND WITH IV CONTRAST CLINICAL HISTORY: cva, change in ms COMPARISON STUDY: 08/25/2015 TECHNIQUE: MRI of the brain was performed from the vertex to the skull base utilizing various T1 and T2 weighted sequences. Following the IV administration of 8.5 mL of Gadavist contrast, additional enhanced images were obtained. FINDINGS: Sagittal T1, axial diffusion, proton density and T2 weighted axial, coronal FLAIR, and pre and post axial T1-weighted images were acquired. These were supplemented with post gadolinium coronal T1 weighted images. No intra or extra-axial mass lesions are visualized. Axial diffusion-weighted images reveal multiple foci of restricted water diffusion involving both cerebellar hemispheres, both occipital lobes, the right temporal lobe, both parietal lobes, both frontal lobes. There is no evidence of ventricular dilatation. Proton density T2-weighted and FLAIR images reveal multiple foci of increased T2 signal, corresponding to the areas of restricted water diffusion. The findings are consistent with innumerable subacute infarcts. There are no abnormal flow voids. There is no evidence of pathologic enhancement. IMPRESSION: Bilateral acute/subacute infarcts involving the cerebellar hemispheres, temporal lobes, occipital lobes, parietal lobes, and frontal lobes. The vascular distribution favors an embolic etiology. Electronically signed by: Chidi Jacobsen M.D. 02/05/2017 3:16 PM Dictated Date/Time: 02/05/2017 3:08 PM The status of this report is Signed. Draft = Not yet reviewed or approved by Radiologist. Signed = Reviewed and approved by Radiologist. <AttendingPhy></AttendingPhy> <FamilyPhy>Darrius Cardoza M.D.</FamilyPhy> < PrimaryPhy>Darrius Cardoza M.D.</PrimaryPhy> <UnitNumber>[id number]</UnitNumber > <VisitNumber>[id number]</VisitNumber> <PatientName>Sarah ORTIZ</PatientName > <DateOfBirth>1930</DateOfBirth> <Location>C.EDB</Location> <ServiceDate> 02/05/17</ServiceDate> <MNE>ESINDI</MNE> <OrderingPhy>Shantelle Frausto DO</ OrderingPhy> <OrderingPhyMNE>f rep ord dr lovelace</OrderingPhyMNE> <DictatingPhyMNE> f rep dict mne</DictatingPhyMNE> <CCListMNE>f rep ct mne</CCListMNE> < AdmittingPhyMNE>f pt admit dr lovelace</AdmittingPhyMNE> <AttendingPhyMNE>f pt attend dr lovelace</AttendingPhyMNE> <ConsultingPhyMNE>f pt consult dr lovelace</ConsultingPhyMNE> <FamilyPhyMNE>f pt fam dr lovelace</FamilyPhyMNE> <OtherPhyMNE>f pt other dr lovelace</OtherPhyMNE> < PrimaryPhyMNE>f pt prim care dr lovelace</PrimaryPhyMNE> <ReferringPhyMNE>f pt referring dr lovelace</ReferringPhyMNE> EKG Reviewed EKG and agree with interpretation as follows: 9:21: 82 bpm, afib with PVCs 13:29: 71 bpm, afib with PVCs Impression Assessment and Plan 86 y/o male with a history of atrial fibrillation, BPH, diastolic CHF, Parkinson 's disease w/dementia, and alcoholic cirrhosis who presented to the ED on 02/05 with altered mental status. Head CT shows subacute L occipital infarct, no hemorrhage. CXR shows diffuse parenchymal fibrosis with a superimposed infiltrate in left base. LUE Doppler ultrasound negative for DVT. Pt febrile, hypotensive, tachypneic, and hypoxic in ED. WBC 13.88. POC lactic acid 2.14. Troponin 2.21. BNP 3606. Given 1L NSS bolus and 250 cc/hr fluids. Given azithromycin, vancomycin and cefepime in ED. Sepsis w/encephalopathy, presumed HCAP -Admit to telemetry -Zosyn and vancomycin IV -Blood and urine cultures pending -Repeat lactic acid now -IVF with 1/2NSS at 125 cc/hr. Sodium elevated at 148 on arrival prior to receiving normal saline in ED. -O2 by protocol -DuoNebs QIDR and q2h prn SOB/wheezing Subacute infarct--pt on Eliquis -MRI brain shows bilateral subacute infarcts. Vascular distribution favors embolic etiology. -Continue Eliquis Elevated troponin--could be secondary to demand ischemia in setting of sepsis -Trend troponin q8h x 3 -EKG q am and prn chest pain Atrial fibrillation--stable, rate controlled -Continue Eliquis BPH -Continue alfuzosin 10 mg PO qhs and finasteride 5 mg PO qhs Diastolic CHF -Hold prn Lasix for now as pt needs fluid resuscitation for sepsis -Daily weights, I's & O's Parkinson's disease w/dementia -Continue Sinemet 25/100 2 tabs PO QID and Exelon 13.3 mg patch TD qd Orthostatic hypotension -Continue Midodrine 7.5 mg PO TID DVT prophylaxis -Eliquis -WENDI cortez and SCDs Code Status -Level V, DO NOT RESUSCITATE Level of Care Telemetry Resuscitation Status DO NOT RESUSCITATE VTE Prophylaxis VTE Risk Assessment Done? Y/N: Yes Risk Level: Moderate Given or contraindicated: Other Anticoagulation (Eliquis), T.E.D. Stockings, SCD's Assessment and Plan Attending Addendum: I physically seen and examined this patient, have supervised the physician curatorial assistant activities, and agree with the H&P as noted above with the following exceptions: NONE The patient is awake, alert and oriented 1 normocephalic and atraumatic, lying in bed and in mild distress. HEENT--PERRL, EOMI, mucous membranes and oropharynx dry. Neck--supple, no JVD or bruits, thyroid normal, trachea midline, no adenopathy. Heart--irregularly irregular, no murmurs, rubs or gallops. Lungs--decreased breath sounds at the bases bilaterally, crackles throughout, mild respiratory distress with accessory muscle use. Abdomen--normal bowel sounds and soft, nontender and nondistended, no hernias or masses, no organomegaly. Extremities--no cyanosis, clubbing or edema. There are good distal pulses b/l. Dermatologic--normal skin turgor, normal color, warm and dry, no abnormal lymph nodes, no rash. Neurologic--cranial nerves II through XII grossly intact, motor and sensory examination normal. Rheumatologic--normal range of motion, nontender, muscles and joints. Psychiatric--normal affect. Assessment and Plan: 1. Metabolic encephalopathy/sepsis/pneumonia--the patient will be admitted to the telemetry unit for serial cardiac enzymes, cardiac rhythm monitoring, close oxygen monitoring and a 2-D echocardiogram with Dopplers. Start vancomycin IV per renal dosing, Zosyn 3.375 mg IV every 8 hours. Start duonebs 4 times a day while awake and every 2 hours when necessary. Nasal cannula 2 L O2, titrate to keep pulse ox greater than or equal to 92%. Follow sputum cultures.
[2017-02-05] MEDS ORDERED: ALBUT/IPRATROP 3MG/0.5MG NEB 3 ML VIAL INH PRN (15:15)
[2017-02-05] MEDS ORDERED: GADAVIST IV PRN (15:15)
--- NOTE | 2017-02-05 15:17 | DIAGNOSTIC IMAGING REPORT ---
MRI OF THE BRAIN WITHOUT AND WITH IV CONTRAST CLINICAL HISTORY: cva, change in ms COMPARISON STUDY: 08/25/2015 TECHNIQUE: MRI of the brain was performed from the vertex to the skull base utilizing various T1 and T2 weighted sequences. Following the IV administration of 8.5 mL of Gadavist contrast, additional enhanced images were obtained. FINDINGS: Sagittal T1, axial diffusion, proton density and T2 weighted axial, coronal FLAIR, and pre and post axial T1-weighted images were acquired. These were supplemented with post gadolinium coronal T1 weighted images. No intra or extra-axial mass lesions are visualized. Axial diffusion-weighted images reveal multiple foci of restricted water diffusion involving both cerebellar hemispheres, both occipital lobes, the right temporal lobe, both parietal lobes, both frontal lobes. There is no evidence of ventricular dilatation. Proton density T2-weighted and FLAIR images reveal multiple foci of increased T2 signal, corresponding to the areas of restricted water diffusion. The findings are consistent with innumerable subacute infarcts. There are no abnormal flow voids. There is no evidence of pathologic enhancement. IMPRESSION: Bilateral acute/subacute infarcts involving the cerebellar hemispheres, temporal lobes, occipital lobes, parietal lobes, and frontal lobes. The vascular distribution favors an embolic etiology. Electronically signed by: Chidi Jacobsen M.D. 02/05/2017 3:16 PM Dictated Date/Time: 02/05/2017 3:08 PM
[2017-02-05] MEDS ORDERED: ALBUTEROL 0.083% NEBU SOLN 3 ML VIAL INH SCH (16:00)
[2017-02-05] MEDS: ALBUT/IPRATROP 3MG/0.5MG NEB 3 ML VIAL INH SCH ×2 (16:00→19:34)
--- NOTE | 2017-02-05 16:21 | Pharmacy Progress Note ---
Pharmacy Abx Initial Consult Date of Service Feb 05, 2017. Pharmacy Dosing Scope Date of Consult: 02/05/17 Consultation requested by: Dr. Mcintosh Pharmacy is consulted to initiate Vancomycin and Zosyn IV dosing therapies for HCAP, order appropriate labs and adjust drug dose/frequency. Subjective The patient is a 86 year old male admitted on 02/05/17. Objective Height (Feet): 5 Height (Inches): 7.00 Weight (Kilograms): 87.900 Vital Signs (Past 12Hrs) Vital Signs Past 12 Hours Date Time Temp Pulse Resp B/P (MAP) Pulse Ox O2 Delivery O2 Flow Rate FiO2 02/05/17 16:10 79 24 136/83 94 02/05/17 15:15 76 22 125/79 95 Room Air 02/05/17 13:08 77 02/05/17 12:57 78 35 123/75 96 02/05/17 12:06 75 30 02/05/17 12:01 122/69 02/05/17 11:51 75 31 02/05/17 11:46 113/62 02/05/17 11:36 73 34 02/05/17 11:31 107/77 02/05/17 11:21 73 31 02/05/17 11:16 108/65 02/05/17 11:06 72 29 02/05/17 11:00 117/67 02/05/17 10:51 68 35 02/05/17 10:46 115/63 02/05/17 10:36 76 31 02/05/17 10:31 120/72 02/05/17 10:27 78 32 02/05/17 10:16 149/76 02/05/17 10:12 85 25 02/05/17 10:01 106/65 02/05/17 09:58 37.6 104 32 97/62 92 Nasal Cannula 4.0 02/05/17 09:57 64 30 97/62 92 02/05/17 09:55 104 32 97/62 92 Nasal Cannula 4.0 02/05/17 09:52 37.6 02/05/17 09:42 86 32 87 02/05/17 09:32 105/64 02/05/17 09:27 81 22 02/05/17 09:19 76 02/05/17 09:17 37.6 83 14 94/62 94 Nasal Cannula 2.0 02/05/17 09:15 94/62 Lab Results (24Hrs) Laboratory Tests (24 Hours) Test 02/05/17 09:49 02/05/17 15:15 White Blood Count 13.88 K/uL (4.8-10.8) H Red Blood Count 3.95 M/uL (4.7-6.1) L Hemoglobin 13.0 g/dL (14.0-18.0) L Hematocrit 38.9 % (42-52) L Mean Corpuscular Volume 98.5 fL (80-100) Mean Corpuscular Hemoglobin 32.9 pg (25-34) Mean Corpuscular Hemoglobin Concent 33.4 g/dl (32-36) Platelet Count 101 K/uL (130-400) L Mean Platelet Volume 9.4 fL (7.4-10.4) Neutrophils (%) (Auto) 83.3 % Lymphocytes (%) (Auto) 7.5 % Monocytes (%) (Auto) 7.7 % Eosinophils (%) (Auto) 0.1 % Basophils (%) (Auto) 0.3 % Neutrophils # (Auto) 11.56 K/uL (1.4-6.5) H Lymphocytes # (Auto) 1.04 K/uL (1.2-3.4) L Monocytes # (Auto) 1.07 K/uL (0.11-0.59) H Eosinophils # (Auto) 0.02 K/uL (0-0.5) Basophils # (Auto) 0.04 K/uL (0-0.2) Lactic Acid Level 1.7 mmol/L (0.4-2.0) Micro Results Date/Time Source Procedure Growth Status 02/05/17 10:30 Blood Blood Culture Pending Received 02/05/17 09:49 Blood Blood Culture Pending Received 02/05/17 00:00 Urine,Catheterized Urine Culture Pending Received Risk Factors for Resistance * Resident in a senior care or extended-care facility ([facility]) * Antimicrobial use within the last 90 days: Rocephin IM (02/02/17) and Levaquin (exact dates unknown) Assessment & Plan Assessment 86 year old male admitted from [facility] for HCAP. Plan Pharmacy has been consulted for treatment of HCAP Vancomycin IV * Loading dose: 1000 mg (11 mg/kg) x 1 dose in the ED * Maintenance dose: 1500 mg IV (17 mg/kg) every 18 hours * Estimated P'kinetic levels:ke= 0.0519/hr, t1/2= 13 hrs * Goal trough level for HCAP : 15 to 20 mcg/mL * Trough level will be order before the 4th or 5th maintenance dose once steady state p'kinetics is achieved to ensure therapeutic concentrations without causing Vancomycin accumulation and toxicity. Piperacillin/tazobactam * 3.375 g bolus administered over 30 minutes, then 3.375 g IV extended infusion every 8 hours for CrCl greater than 20 mL/min Pharmacy will continue to follow and will adjust dose/frequency as necessary. Thank you.
[2017-02-05] MEDS: CARBIDOPA/LEVODOPA 25/100MG TAB PO SCH ×2 (16:43→20:22)
[2017-02-05] MEDS: NYSTATIN SUSP 500,000 U/5 ML UDC PO SCH ×2 (16:43→20:21)
[2017-02-05] MEDS ORDERED: PIPERACILL/TAZOBAC IV 3.375 GM in DEXTROSE 5% 100ML 100 ML IV SCH (17:00)
[2017-02-05] MEDS: MIDODRINE 2.5 MG TAB PO SCH (17:38)
[2017-02-05] MEDS: SODIUM CHLORIDE 0.45% 1000ML 1,000 ML IV SCH ×2 (17:38→23:26)
[2017-02-05 18:09] VITALS: BP 113/67; PULSE 81; TEMP 37; O2SAT 93; Ht 170.2 cm; Wt 88.0 kg
[2017-02-05] MEDS ORDERED: PNEUMOCOCCAL ADMINISTRATION CHARGE ONE (19:00)
[2017-02-05] MEDS ORDERED: PNEUMOCOCCAL POLYSACCHARIDES 25 MCG/0.5 ML VIAL/SYR IM. ONE (19:00)
[2017-02-05 19:34] VITALS: PULSE 80; O2SAT 95
[2017-02-05 20:05] VITALS: O2SAT 95
[2017-02-05] MEDS: ALFUZosin TAB 10 MG TAB PO SCH (20:22)
[2017-02-05] MEDS ORDERED: VANCOMYCIN INJ 1,000 MG in SODIUM CHLORIDE 0.9% 250ML 250 ML IV SCH (21:00)
[2017-02-05] MEDS: APIXABAN 2.5 MG TAB PO SCH (21:00)
[2017-02-05] MEDS: PIPERACILL/TAZOBAC IV 3.375 GM in DEXTROSE 5% 100ML 100 ML IV SCH (22:25)
[2017-02-05 23:38] VITALS: BP 129/74; PULSE 64; TEMP 36.5; O2SAT 93
[2017-02-06] VITALS (9 sets, daily range): BP systolic 110–148; BP diastolic 69–80; PULSE 46–88; TEMP 36.7–37; O2SAT 90–98
[2017-02-06] MEDS: VANCOMYCIN INJ 1,500 MG in SODIUM CHLORIDE 0.9% 500ML 500 ML IV SCH ×2 (02:07→20:01)
[2017-02-06] MEDS: MIDODRINE 2.5 MG TAB PO SCH ×3 (05:42→13:29)
[2017-02-06] MEDS: PIPERACILL/TAZOBAC IV 3.375 GM in DEXTROSE 5% 100ML 100 ML IV SCH ×3 (05:42→21:49)
[2017-02-06 06:32] LABS: HEMATOCRIT 37.2 % (42-52); MEAN CELL VOLUME 96.9 fL (80-100); MEAN CORPUSCULAR HEMOGLOBIN 31.8 pg (25-34); MEAN CORPUSCULAR HGB CONC 32.8 g/dl (32-36); MEAN PLATELET VOLUME 9.2 fL (7.4-10.4); PLATELET COUNT 102 K/uL (130-400); RED BLOOD COUNT 3.84 M/uL (4.7-6.1); WHITE BLOOD COUNT 12.58 K/uL (4.8-10.8)
[2017-02-06 07:04] LABS: BASO % 0.5 %; BASO ABS # 0.06 K/uL (0-0.2); COMPLETE YES; ECHINOCYTES 2+; EOS % 1.3 %; IG% 3.9 %; LYMPH ABS # 1.26 K/uL (1.2-3.4); MONO % 7.9 %; NEUT % 76.4 %
[2017-02-06 07:06] LABS: BUN/CREATININE RATIO 35.5 (10-20); CALCIUM 7.9 mg/dl (8.5-10.1); CREATININE 0.8 mg/dl (0.60-1.40); POTASSIUM 3.7 mmol/L (3.5-5.1)
[2017-02-06] MEDS: ALBUT/IPRATROP 3MG/0.5MG NEB 3 ML VIAL INH SCH ×4 (07:34→18:48)
[2017-02-06] MEDS: SODIUM CHLORIDE 0.45% 1000ML 1,000 ML IV SCH ×2 (08:04→18:26)
[2017-02-06] MEDS: NYSTATIN SUSP 500,000 U/5 ML UDC PO SCH ×4 (08:37→20:30)
[2017-02-06] MEDS: CEROVITE ADV FORMULA TAB PO SCH (08:37)
[2017-02-06] MEDS: APIXABAN 2.5 MG TAB PO SCH (08:37)
[2017-02-06] MEDS: SENNA 8.6 MG TAB PO SCH (08:38)
[2017-02-06] MEDS: PANTOprazole SOD 40 MG TAB PO SCH (08:38)
[2017-02-06] MEDS: CHOLECALCIFEROL 1000 INTER.UNIT TAB PO SCH (08:38)
[2017-02-06] MEDS: FINASTERIDE 5 MG TAB PO SCH (08:38)
[2017-02-06] MEDS: CARBIDOPA/LEVODOPA 25/100MG TAB PO SCH ×2 (08:38→11:19)
[2017-02-06] MEDS ORDERED: PHARMACIST DISCHARGE MED REC CONSULT PRN (09:15)
--- NOTE | 2017-02-06 10:59 | Neurology Consultation ---
Neurology Consultation Date of Consultation: Feb 06, 2017. Attending Physician: Dayana Do MD Primary Care Physician: Darrius Cardoza M.D. Reason for Consultation: Stroke History of Present Illness Source: hospital records The patient is an 86[facility]-old male [facility] who has been following with me for several years for progressive Parkinson's disease and associated dementia. He was diagnosed with atrial fibrillation within the past year and has been prescribed Eliquis. The patient has been exhibiting increasing confusion in the context of fever and cough for about the past week. He has been prescribed antibiotics. Confusion and overall functional status seems to be significantly worse than usual and he was subsequently admitted to the hospital for further evaluation and management. The patient is delirious at this time and is subsequently unable to provide a meaningful history of present illness. A CT of the head completed upon presentation revealed a subacute left occipital lobe infarct as well as chronic bilateral cerebellar infarcts. A brain MRI has revealed bilateral acute/subacute infarcts within the cerebellar hemispheres, temporal lobes, occipital lobes, parietal lobes, and frontal lobes bilaterally. I reviewed the images as well as the radiologist's interpretation of this test. The distribution of these multifocal infarcts would overwhelmingly suggest an embolic etiology. Past Medical/Surgical History Medical Problems: (1) Contusion of left hand Status: Acute (2) Dehydration Status: Acute (3) Elevated bilirubin Status: Acute (4) Elevated troponin Status: Acute (5) Fall Status: Acute (6) Generalized weakness Status: Acute (7) Left upper extremity swelling Status: Acute (8) New onset atrial fibrillation Status: Acute (9) Pneumonia Status: Acute Family History There is no pertinent family history that would affect this patient's evaluation and management from a neurological perspective in the context of this acute hospitalization Social History Smoking Status: Never smoker Smokeless Tobacco Use: No Alcohol Use: none Drug Use: none Marital Status: Housing Status: [facility] Occupation Status: retired Allergies Coded Allergies: Acetaminophen (Verified Adverse Reaction, Mild, 08/30/15) "BAD FOR MY LIVER" Current Inpatient Medications Current Inpatient Medications Medications (Trade) Dose Ordered Sig/Khurram Route Start Time Stop Time Status Last Admin Dose Admin Sodium Chloride 1,000 ml @ 125 mls/hr Q8H IV 02/05/17 15:30 03/07/17 13:46 02/06/17 08:04 125 MLS/HR Al Hydrox/Mg Hydrox/Simethicone (Maalox Max Susp) 15 ml Q4H PRN PO 02/05/17 14:00 03/07/17 13:59 Magnesium Hydroxide (Milk Of Magnesia Susp) 30 ml Q12H PRN PO 02/05/17 14:00 03/07/17 13:59 Ondansetron HCl (Zofran Inj) 4 mg Q6H PRN IV 02/05/17 14:00 03/07/17 13:59 Polyethylene (Miralax Powder Packet) 17 gm DAILY PRN PO 02/05/17 14:00 03/07/17 13:59 Alfuzosin HCl (Uroxatral Tab) 10 mg HS PO 02/05/17 21:00 03/07/17 20:59 Carbidopa/Levodopa (Sinemet 25/ 100MG Tab) 2 tab QID PO 02/05/17 17:00 03/07/17 16:59 Cholecalciferol (Vitamin D Tab) 1,000 inter.unit QAM PO 02/06/17 09:00 03/08/17 08:59 Finasteride (Proscar Tab) 5 mg QAM PO 02/06/17 09:00 03/08/17 08:59 Ibuprofen (Advil Tab) 200 mg Q4 PRN PO 02/05/17 14:15 03/07/17 14:14 Midodrine (Proamatine Tab) 7.5 mg TID@0700,1200,1500 PO 02/05/17 15:00 03/07/17 14:59 Multivitamins/ Minerals (Multivitamin W/ Minerals Tab) 1 tab DAILY PO 02/06/17 09:00 03/08/17 08:59 Senna (Senokot Tab) 8.6 mg QAM PO 02/06/17 09:00 03/08/17 08:59 Tramadol HCl (Ultram Tab) 25 mg Q12 PRN PO 02/05/17 14:15 03/07/17 14:14 Pantoprazole Sodium (Protonix Tab) 40 mg QAM PO 02/06/17 09:00 03/08/17 08:59 Miscellaneous Information (Order Awaiting Action) 1 ea QS N/A 02/05/17 16:00 03/07/17 15:59 Nystatin (Mycostatin Susp) 5 ml QID PO 02/05/17 17:00 02/10/17 16:59 Piperacillin Sod/ Tazobactam Sod (Consult) 1 ea UD PRN N/A 02/05/17 14:30 03/07/17 14:29 Vancomycin HCl (Consult) 1 ea UD PRN N/A 02/05/17 14:30 03/07/17 14:29 Albuterol/ Ipratropium (Duoneb) 3 ml QIDR INH 02/05/17 16:00 03/07/17 15:59 02/06/17 07:34 3 ML Albuterol/ Ipratropium (Duoneb) 3 ml Q2H PRN INH 02/05/17 15:15 03/07/17 15:14 Gadobutrol (Gadavist) 8.5 mmol UD PRN IV 02/05/17 15:15 02/09/17 15:14 Apixaban (Eliquis Tab) 5 mg BID PO 02/05/17 21:00 03/07/17 20:59 Vancomycin HCl 1500 mg/Sodium Chloride 530 ml @ 200 mls/hr Q18H IV 02/06/17 02:00 02/13/17 01:59 02/06/17 02:07 200 MLS/HR Piperacillin Sod/ Tazobactam Sod 3.375 gm/Dextrose 115 ml @ 28.75 mls/ hr Q8H IV 02/05/17 22:00 02/12/17 13:59 02/06/17 05:42 28.75 MLS/HR Aspirin (Ecotrin Tab) 81 mg QAM PO 02/07/17 09:00 03/09/17 08:59 Miscellaneous Information (Pharmacist Discharge Med Rec Consult) 1 ea UD PRN N/A 02/06/17 09:15 03/08/17 09:14 Review of Systems Review of systems cannot be obtained from this patient as his mental status is significantly altered in the context of his delirium Physical Exam Vital Signs (Past 24 Hrs): Date Time Temp Pulse Resp B/P (MAP) Pulse Ox O2 Delivery O2 Flow Rate FiO2 02/06/17 08:00 Nasal Cannula 4.0 02/06/17 07:40 36.9 46 22 110/69 (83) 97 Nasal Cannula 4.0 02/06/17 07:34 62 20 98 Nasal Cannula 4.0 02/06/17 04:05 Nasal Cannula 4.0 02/06/17 00:05 Nasal Cannula 4.0 02/05/17 23:38 36.5 64 16 129/74 (92) 93 Nasal Cannula 4.0 02/05/17 20:05 95 Nasal Cannula 4.0 02/05/17 19:34 80 18 95 Nasal Cannula 4.0 02/05/17 18:09 37.0 81 16 113/67 93 Nasal Cannula 4.5 02/05/17 16:10 79 24 136/83 94 02/05/17 15:15 76 22 125/79 95 Room Air 02/05/17 13:08 77 02/05/17 12:57 78 35 123/75 96 02/05/17 12:06 75 30 02/05/17 12:01 122/69 02/05/17 11:51 75 31 02/05/17 11:46 113/62 02/05/17 11:36 73 34 02/05/17 11:31 107/77 02/05/17 11:21 73 31 02/05/17 11:16 108/65 02/05/17 11:06 72 29 02/05/17 11:00 117/67 02/05/17 10:51 68 35 02/05/17 10:46 115/63 02/05/17 10:36 76 31 02/05/17 10:31 120/72 The patient is a thin elderly male. He is obtunded and agitated. He is able to state his name but is otherwise not oriented to place or time. Attention and concentration are significantly impaired. Memory function cannot be evaluated. Patient exhibits minimal spontaneous speech output. However, his delirium supersedes any attempts at assessing naming, repetition, or other language functions. Likewise, fund of knowledge and vocabulary cannot be reliably assessed in the context of his delirium. Patient exhibits forced eyelid closure. Visual marley cannot be adequately assessed. Pupils are equal round and react minimally to light. He does not have an obvious gaze preference. He does not cooperate for testing of eye movements. Facial expression appears grossly symmetric within the limits of simple observation. He will not cooperate for full assessment. Blink reflex and gag reflex intact. Remaining cranial nerves could not be reliably assessed. Sensation cannot be assessed. Deep tendon reflexes are generally intact and symmetrical. Plantar responses are upgoing bilaterally, more so for the left. Testing of coordination with finger to nose or heel to amaya cannot be performed. The patient does not cooperate for all fluoroscopic examination. Cardiac rhythm irregularly irregular. No murmurs. Carotid pulses intact bilaterally, no bruits. Gait is station cannot be tested. Muscle strength cannot be reliably tested. Patient exhibits mild cogwheel rigidity with testing of the right upper extremity. The left upper extremity appears to be flaccid. He does not have an obvious resting tremor. Laboratory Results Past 24 Hours: 02/06/17 06:09 Red Blood Count 3.84, Mean Corpuscular Volume 96.9, Mean Corpuscular Hemoglobin 31.8, Mean Corpuscular Hemoglobin Concent 32.8, Mean Platelet Volume 9.2, Neutrophils (%) (Auto) 76.4, Lymphocytes (%) (Auto) 10.0, Monocytes (%) (Auto) 7.9, Eosinophils (%) (Auto) 1.3, Basophils (%) (Auto) 0.5, Neutrophils # (Auto) 9.61, Lymphocytes # (Auto) 1.26, Monocytes # (Auto) 1.00, Eosinophils # (Auto) 0.16, Basophils # (Auto) 0.06 02/06/17 06:09 Test 02/05/17 10:35 02/05/17 15:15 02/05/17 16:27 02/06/17 02:42 Bedside Lactic Acid Venous 2.14 mmol/L (0.90-1.70) Lactic Acid Level 1.7 mmol/L (0.4-2.0) Bedside Glucose 76 mg/dl (70-99) Troponin I 1.920 ng/ml (0-0.045) Test 02/06/17 06:09 02/06/17 09:56 White Blood Count 12.58 K/uL (4.8-10.8) Red Blood Count 3.84 M/uL (4.7-6.1) Hemoglobin 12.2 g/dL (14.0-18.0) Hematocrit 37.2 % (42-52) Mean Corpuscular Volume 96.9 fL (80-100) Mean Corpuscular Hemoglobin 31.8 pg (25-34) Mean Corpuscular Hemoglobin Concent 32.8 g/dl (32-36) Platelet Count 102 K/uL (130-400) Mean Platelet Volume 9.2 fL (7.4-10.4) Neutrophils (%) (Auto) 76.4 % Lymphocytes (%) (Auto) 10.0 % Monocytes (%) (Auto) 7.9 % Eosinophils (%) (Auto) 1.3 % Basophils (%) (Auto) 0.5 % Neutrophils # (Auto) 9.61 K/uL (1.4-6.5) Lymphocytes # (Auto) 1.26 K/uL (1.2-3.4) Monocytes # (Auto) 1.00 K/uL (0.11-0.59) Eosinophils # (Auto) 0.16 K/uL (0-0.5) Basophils # (Auto) 0.06 K/uL (0-0.2) RDW Standard Deviation 48.5 fL (36.4-46.3) RDW Coefficient of Variation 13.7 % (11.5-14.5) Immature Granulocyte % (Auto) 3.9 % Immature Granulocyte # (Auto) 0.49 K/uL (0.00-0.02) Echinocytes 2+ Anion Gap 10.0 mmol/L (3-11) Est Creatinine Clear Calc Drug Dose 70.5 ml/min Estimated GFR () 94.4 Estimated GFR (Non- 81.5 BUN/Creatinine Ratio 35.5 (10-20) Calcium Level 7.9 mg/dl (8.5-10.1) Imaging CT of the head and brain MRI were reviewed and are as described in the history of present illness. I reviewed data includes an EKG which reveals atrial fibrillation, heart rate 82 bpm. Patient's troponins have been elevated. Impression Acute/subacute embolic infarcts affecting the bilateral cerebellar hemispheres as well as the bilateral cerebral hemispheres. Infarct distribution is quite large and effects the frontal lobes, temporal lobes, parietal lobes, and occipital lobes bilaterally. Stroke etiology overwhelmingly cardioembolic given the extensive multifocal distribution and history of atrial fibrillation, in spite of treatment with Eliquis. Acute encephalopathy/delirium which is likely multifactorial and related to extensive embolic infarcts and pneumonia. Parkinson's disease and associated dementia, chronic progressive condition. Plan Would obtain a repeat CT of the head today to exclude interval development of hemorrhagic transformation. If there is evidence of hemorrhage would hold anticoagulant and antiplatelet agents. If there is no evidence of hemorrhage on this follow-up CT of the head and it would be reasonable to resume anticoagulation. If this patient is unable to tolerate oral anticoagulants, then it would be reasonable to consider intravenous heparin. However, given the observed extent of his recent embolic infarcts coupled with his chronic, progressive, Parkinson's disease and associated dementia, I expect that his prognosis for recovery is quite poor. He is at high risk for aspiration , recurrent stroke, and worsening delirium. Depending on family wishes, comfort measures may also be reasonable. He may resume Sinemet when able to swallow reliably. The Exelon patches may be continued.
[2017-02-06 11:10] LABS: ESTIMATED AVERAGE GLUCOSE 105 mg/dl; HA1C FLAG Normal (Normal)
--- NOTE | 2017-02-06 13:12 | DIAGNOSTIC IMAGING REPORT ---
CT SCAN OF THE BRAIN WITHOUT IV CONTRAST CLINICAL HISTORY: Follow-up multiple embolic infarcts. COMPARISON STUDY: CT and MRI of the brain dated 02/05/2017. TECHNIQUE: Unenhanced axial CT scan of the brain is performed from the vertex to the skull base. CT DOSE: 712.55 mGy.cm FINDINGS: Brain parenchyma: There are age-related involutional changes noting moderate patchy subcortical and periventricular microangiopathic change. There are numerous small foci with loss of walter-white matter differentiation seen throughout the brain. The largest are located within the cerebellar hemispheres, the left occipital lobe, and the high right frontal lobe. These are consistent with subacute/evolving infarcts when correlated with yesterday's MRI. No hemorrhage is seen. There is only mild edema. No midline shift is noted. Mineralization is present in the basal ganglia. No extra-axial fluid collection is seen. Ventricles, sulci, cisterns: Prominent secondary to involutional change. Intracranial vasculature: There is atherosclerotic calcification of the cavernous carotid intervertebral arteries. Calvarium: Unremarkable. Sinuses and mastoids: Trace mucosal thickening is seen in the maxillary antra. The remaining visualized paranasal sinuses are clear. The mastoid air cells are well pneumatized. Orbits: The bony orbits are grossly intact. There is a right ocular lens implant. IMPRESSION: 1. Findings are consistent with numerous/multifocal evolving cortical infarcts as above. 2. There is no hemorrhage identified and no midline shift is seen. Electronically signed by: Manpreet Potter M.D. 02/06/2017 1:10 PM Dictated Date/Time: 02/06/2017 1:06 PM
--- NOTE | 2017-02-06 13:26 | DIAGNOSTIC IMAGING REPORT ---
ULTRASOUND LEFT UPPER EXTREMITY VENOUS CLINICAL HISTORY: Left upper extremity edema. Stroke. COMPARISON STUDY: Left upper extremity venous ultrasound dated 02/05/2017. TECHNIQUE: Real-time, grayscale, and color Doppler sonography of the deep veins of the left upper extremity is performed. Compression and augmentation were utilized. The examination is degraded by the patient's inability to move the arm. FINDINGS: There is no sonographic evidence of deep venous thrombosis identified in the left upper extremity. The left internal jugular, axillary, and brachial veins are patent and normally compressible. Normal venous waveforms and augmentation are seen within the left subclavian vein. The cephalic and basilic veins were not well visualized. The visualized radial and ulnar veins are patent. IMPRESSION: There is no sonographic evidence of deep venous thrombosis identified in the left upper extremity. Electronically signed by: Manpreet Potter M.D. 02/06/2017 1:25 PM Dictated Date/Time: 02/06/2017 1:23 PM
--- NOTE | 2017-02-06 13:29 | DIAGNOSTIC IMAGING REPORT ---
ULTRASOUND OF THE CAROTID ARTERIES CLINICAL HISTORY: Multiple embolic strokes. COMPARISON STUDY: CT scan of the neck dated 05/31/2007. TECHNIQUE: Real-time, grayscale, and color Doppler sonography of the carotid arteries is performed. Images are reviewed in the transverse and longitudinal planes. FINDINGS: Blood pressures were unable to be assessed. The carotid arteries are patent bilaterally and demonstrate antegrade flow. There is only mild atherosclerotic plaque seen the carotid bulbs bilaterally. Normal doppler arterial waveforms are seen throughout. The cardiac pulsations appear irregularly irregular. Velocity measurements are listed below. Common carotid peak systolic velocity (cm/sec): RIGHT: 58 LEFT: 64 ICA proximal peak systolic velocity (cm/sec): RIGHT: 48 LEFT: 62 ICA mid to distal peak systolic velocity (cm/sec): RIGHT: 65 LEFT: 59 ICA/CC peak systolic ratio: RIGHT: 1.1 LEFT: 1.0 Antegrade flow was shown in the vertebral arteries. The external carotid arteries are patent. IMPRESSION: 1. There is no sonographic evidence of hemodynamically significant stenosis in the right or left carotid arterial system. 2. Antegrade flow is shown in the vertebral arteries. 3. The cardiac waveforms are irregularly irregular. Correlate for evidence of arrhythmia. Electronically signed by: Manpreet Potter M.D. 02/06/2017 1:28 PM Dictated Date/Time: 02/06/2017 1:25 PM
--- NOTE | 2017-02-06 15:12 | Cardiology Consultation ---
Cardiology Consultation Date of Service Feb 06, 2017. Cardiology Consultation CARDIOLOGY CONSULTATION DATE OF CONSULTATION: February 06, 2017 REFERRING PHYSICIAN: Sonia BORGES REASON FOR CONSULT: Atrial fibrillation with transient pause (5 seconds). HISTORY OF PRESENT ILLNESS: 86-year-old senior care resident with progressive Parkinson's disease and associated dementia, permanent atrial fibrillation (Eliquis, no need for rate control) who was noted to have fever and cough with declining mental status, admitted 02/05/2017 with evidence of embolic multi territory cerebral vascular accident. Patient is somnolent and confused. Unable to offer additional history. Did deny any pain. MEDICATIONS: Aspirin Cholecalciferol Proscar Multi vitamin Senokot Protonix Vancomycin Piperacillin/tazobactam Uroxatral Sinemet 25/100 2 tablets q.i.d. Nystatin DuoNeb ALLERGIES: Acetaminophen PAST MEDICAL HISTORY: Permanent atrial fibrillation (Eliquis/no need for negative chronotropic) Dementia/Parkinson's Dehydration Elevated troponin Falls Generalized weakness Pneumonia Diastolic congestive heart failure Alcoholic cirrhosis BPH Rhabdomyolysis PAST SURGICAL HISTORY: Total knee replacement SOCIAL HISTORY: Never smoked. . jail resident. Retired. FAMILY HISTORY: Noncontributory given age REVIEW OF SYSTEMS: Not obtainable PHYSICAL EXAMINATION: No distress. Vitals: Afebrile. BP 124/77, pulse 69 and irregular, respirations 24 but unlabored. Skin: No unusual lesions or ecchymosis. HEENT: Unremarkable. Neck: Jugular venous pulse at the clavicle at 90, no carotid bruits. Lungs: Shallow respirations but generally clear. No wheezing or crackles. Cardiac: Irregular rhythm, faint heart tones, 2/6 systolic ejection murmur at the left sternal border, base, and apex. No diastolic murmur or gallop. Aortic closure sound diminished but audible. Abdomen: Benign. Extremities: Nontender without edema. Intact peripheral pulses. Neurologic: Somnolent and confused. DATA: ECG showed atrial fibrillation with slow ventricular response of 55 ppm, occasional PVC versus aberrantly conducted beat, diffuse nonspecific T-wave flattening. No acute change. Telemetry monitoring showed a 5 second pause. WBC 12.58, hemoglobin 12.2, platelet count [id number]. INR 1.3 yesterday. Sodium 148, potassium 3.7, chloride 116, CO2 22, BUN 28 (32 and 1.0 yesterday) Troponins 2.2, 1.6, and 1.9. TSH normal. Albumin 2.2. Echocardiogram is pending, preliminary bedside review suggests normal systolic function with moderate aortic stenosis and no regional wall motion abnormalities. IMPRESSION: 1. Multi-territory embolic stroke, likely secondary to permanent atrial fibrillation (occurred on Eliquis). 2. Slow ventricular response with transient pause, suspect conduction disease plus medication effect. 3. Parkinson's disease/dementia. 4. Conservative management per family. DISCUSSION: Patient with significant multi-territory embolic stroke while on Eliquis. Please see Dr. Nazario's Neurology consult for recommendations, agree with restarting anticoagulation if CT of the head is negative today. Would recommend changing to warfarin, since he "failed" Eliquis and warfarin can be efficacious in circumstances that the newer agents are not (for example, mechanical heart valves). Would continue to hold Parkinson's medication, since this likely contributes to his slow ventricular response. If he develops prominent Parkinson's symptoms but no further pauses, could reintroduce the medication at lower dose. The patient's family is not interested consideration of a temporary or permanent pacemaker at this time. Overall prognosis is poor and very much related to the extent of his recent neurologic event, the family will be monitoring this to help determine the appropriate future level of interventions/care.
[2017-02-06] MEDS ORDERED: HEPARIN IV LOW DOSE NO BOLUS SCH (16:00)
--- NOTE | 2017-02-06 16:45 | ECHOCARDIOGRAM REPORT ---
*NOTICE TO RECEIVING [employer] This information is strictly Confidential and protected under [place] law. [place] law prohibits you from making any further disclosure of this information unless further disclosure is expressly permitted by the written consent of the person to whom it pertains or is authorized by law. A general authorization for the release of medical or other information is not sufficient for this purpose. Hospital accepts no responsibility if the information is made available to any other person, INCLUDING THE PATIENT. Interpretation Summary * Name: Sarah ORTIZ Study Date: 02/06/2017 01:40 PM BP: 124/77 mmHg * Patient Location: [facility]\S\N284\S\2 HR: 68 * : 1930 (M/d/yyyy) Gender: Male Height: 67 in * Age: 86 yrs Ethnicity: [place] Weight: 188 lb * Ordering Physician: Dayana Do * Referring Physician: Self, Referred * Performed By: Michelle Zelaya RCS * * Reason For Study: SEPSIS / MULTIPLE EMBOLIC CVA'S * BSA: 2.0 m2 * -- Conclusions -- * Compared with 08/30/15 study, LVH increased and aortic stenosis is more severe, mitral and tricuspid regurgitation less apparent than before. * Left ventricular systolic function is normal. * Ejection Fraction = 60-65%. * The left ventricular wall motion is normal. * There is moderate concentric left ventricular hypertrophy. * Moderate to severe valvular aortic stenosis. * Mild aortic regurgitation. * Moderate pleural effusion suggested. * Injection of contrast documented no interatrial shunt. Procedure Details * A complete two-dimensional transthoracic echocardiogram was performed (2D, M-mode, Doppler and color flow Doppler). * A saline contrast injection was performed to assess for cardiac shunting. * The injection was performed through an intravenous line in the right arm. * The attending nurse who injected the saline contrast was AMELIE GOMEZ RN. * A total of 10 cc of agitated saline was given. Left Ventricle * The left ventricle is normal in size. * There is moderate concentric left ventricular hypertrophy. * Left ventricular systolic function is normal. * Ejection Fraction = 60-65%. * The left ventricular wall motion is normal. Atria * The left atrium is mildly dilated. * Right atrial size is normal. * Injection of contrast documented no interatrial shunt. Mitral Valve * The mitral valve is normal in structure and function. * There is mild mitral regurgitation. Tricuspid Valve * The tricuspid valve is normal in structure and function. * Significant tricuspid regurgitation is absent. Aortic Valve * The aortic valve is trileaflet. * Moderate to severe valvular aortic stenosis. * Aortic valve area was calculated at 0.89 cm\S\2 using the continuity equation. * Mild aortic regurgitation. Pulmonic Valve * The pulmonic valve is not well seen, but is grossly normal. * Trace pulmonic valvular regurgitation. Great Vessels * The aortic root is normal size. * No obvious dissection could be visualized. * The pulmonary artery is normal size. Pericardium/Pleural * There is no pericardial effusion. * Moderate pleural effusion suggested. Great Vessels * Normal inferior vena cava diameter and respiratory variation suggests normal central venous pressure. MMode 2D Measurements and Calculations IVSd 2.1 cm IVSs 2.0 cm LVIDd 3.8 cm LVIDs 2.5 cm LVPWd 1.5 cm IVS/LVPW 1.4 FS 33.1 % EDV(Teich) 60.3 ml ESV(Teich) 22.7 ml EF(Teich) 62.4 % EDV(cubed) 53.1 ml ESV(cubed) 15.9 ml EF(cubed) 70.0 % % IVS thick -1.79 % LV mass(C)d 281.3 grams LV mass(C)dI 142.8 grams/m\S\2 SV(Teich) 37.7 ml SI(Teich) 19.1 ml/m\S\2 SV(cubed) 37.2 ml SI(cubed) 18.9 ml/m\S\2 Ao root diam 3.6 cm Ao root area 10.0 cm\S\2 LA dimension 4.1 cm LA/Ao 1.1 LVOT diam 2.0 cm LVOT area 3.2 cm\S\2 Doppler Measurements and Calculations MV E max eliane 90.6 cm/sec MV P1/2t max eliane 117.7 cm/sec MV P1/2t 62.3 msec MVA(P1/2t) 3.5 cm\S\2 MV dec slope 553.7 cm/sec\S\2 MV dec time 0.21 sec Ao V2 max 301.1 cm/sec Ao max PG 36.3 mmHg Ao max PG (full) 33.5 mmHg Ao V2 mean 209.9 cm/sec Ao mean PG 19.6 mmHg Ao mean PG (full) 18.2 mmHg Ao V2 VTI 62.2 cm JABARI(I,A) 0.90 cm\S\2 JABARI(I,D) 0.90 cm\S\2 JABARI(V,A) 0.89 cm\S\2 JABARI(V,D) 0.89 cm\S\2 AI max eliane 459.9 cm/sec AI max PG 84.6 mmHg AI dec slope 274.9 cm/sec\S\2 AI P1/2t 490.1 msec LV V1 max PG 2.7 mmHg LV V1 mean PG 1.4 mmHg LV V1 max 82.5 cm/sec LV V1 mean 54.7 cm/sec LV V1 VTI 17.2 cm MR max eliane 494.3 cm/sec MR max PG 97.8 mmHg SV(Ao) 620.6 ml SI(Ao) 315.1 ml/m\S\2 SV(LVOT) 55.9 ml SI(LVOT) 28.4 ml/m\S\2 PA V2 max 88.3 cm/sec PA max PG 3.1 mmHg TR max eliane 280.5 cm/sec
[2017-02-06] MEDS: HEPARIN 25,000 UNIT/500ML D5W 500 ML IV PRN (17:00)
[2017-02-06] MEDS: ALFUZosin TAB 10 MG TAB PO SCH (20:31)
--- NOTE | 2017-02-06 20:35 | Hospitalist Progress Note ---
Hospitalist Progress Note Date of Service Feb 06, 2017. Subjective Pt evaluation today including: conversation w/ patient, conversation w/ family (spokt o daughter on phone, and daughter Bronwyn at bedside), physical exam, conversation w/ process consultant (Cardiology, Neurology) Pt minimally responsive today but does follow some commands. Moaning when touched at times. Had a 5 sec pause on tele but is in A-fib. Daughter reports he normally is "sharp as a tack" but does have some mild short term memory loss. Constitutional: + fever Additional Comments: difficult to obtain due to delirium Objective Vital Signs Date Time Temp Pulse Resp B/P (MAP) Pulse Ox O2 Delivery O2 Flow Rate FiO2 02/06/17 08:00 Nasal Cannula 4.0 02/06/17 07:40 36.9 46 22 110/69 (83) 97 Nasal Cannula 4.0 02/06/17 07:34 62 20 98 Nasal Cannula 4.0 02/06/17 04:05 Nasal Cannula 4.0 02/06/17 00:05 Nasal Cannula 4.0 02/05/17 23:38 36.5 64 16 129/74 (92) 93 Nasal Cannula 4.0 02/05/17 20:05 95 Nasal Cannula 4.0 02/05/17 19:34 80 18 95 Nasal Cannula 4.0 02/05/17 18:09 37.0 81 16 113/67 93 Nasal Cannula 4.5 02/05/17 16:10 79 24 136/83 94 02/05/17 15:15 76 22 125/79 95 Room Air 02/05/17 13:08 77 02/05/17 12:57 78 35 123/75 96 02/05/17 12:06 75 30 02/05/17 12:01 122/69 02/05/17 11:51 75 31 02/05/17 11:46 113/62 02/05/17 11:36 73 34 02/05/17 11:31 107/77 02/05/17 11:21 73 31 02/05/17 11:16 108/65 02/05/17 11:06 72 29 02/05/17 11:00 117/67 02/05/17 10:51 68 35 02/05/17 10:46 115/63 Physical Exam General Appearance: no apparent distress, + pertinent finding (lying in bed sleeping but does wake up with verbal stimuli, tries to answer some questions but won't open eyes, is following some commands) Eyes: + pertinent finding (will not cooperate for eye exam) ENT: + pertinent finding (dry mucus membranes) Neck: trachea midline Respiratory/Chest: no respiratory distress, no accessory muscle use, + crackles (at bases bilat) Cardiovascular: no murmur, + irregularly irregular (with normal rate) Abdomen: normal bowel sounds, non tender, soft, no pulsatile mass Extremities: non-tender, + swelling (left upper extremity swelling) Neurologic/Psychiatric: + pertinent finding (follows some commands, minimally verbal, CN exam not possible, no facial droop, Left upper ext flaccid, but able to move right arm and BLEs somewhat when asked) Skin: normal color, warm/dry, + pertinent finding (ecchymosis on arms) Laboratory Results Last 24 Hours Test 02/05/17 15:15 02/05/17 16:27 02/05/17 18:15 02/06/17 02:42 Lactic Acid Level 1.7 mmol/L Bedside Glucose 76 mg/dl Troponin I 1.610 ng/ml 1.920 ng/ml Test 02/06/17 06:09 02/06/17 09:56 White Blood Count 12.58 K/uL Red Blood Count 3.84 M/uL Hemoglobin 12.2 g/dL Hematocrit 37.2 % Mean Corpuscular Volume 96.9 fL Mean Corpuscular Hemoglobin 31.8 pg Mean Corpuscular Hemoglobin Concent 32.8 g/dl Platelet Count 102 K/uL Mean Platelet Volume 9.2 fL Neutrophils (%) (Auto) 76.4 % Lymphocytes (%) (Auto) 10.0 % Monocytes (%) (Auto) 7.9 % Eosinophils (%) (Auto) 1.3 % Basophils (%) (Auto) 0.5 % Neutrophils # (Auto) 9.61 K/uL Lymphocytes # (Auto) 1.26 K/uL Monocytes # (Auto) 1.00 K/uL Eosinophils # (Auto) 0.16 K/uL Basophils # (Auto) 0.06 K/uL RDW Standard Deviation 48.5 fL RDW Coefficient of Variation 13.7 % Immature Granulocyte % (Auto) 3.9 % Immature Granulocyte # (Auto) 0.49 K/uL Echinocytes 2+ Sodium Level 148 mmol/L Potassium Level 3.7 mmol/L Chloride Level 116 mmol/L Carbon Dioxide Level 22 mmol/L Anion Gap 10.0 mmol/L Blood Urea Nitrogen 28 mg/dl Creatinine 0.80 mg/dl Est Creatinine Clear Calc Drug Dose 70.5 ml/min Estimated GFR () 94.4 Estimated GFR (Non- 81.5 BUN/Creatinine Ratio 35.5 Random Glucose 91 mg/dl Calcium Level 7.9 mg/dl Assessment and Plan 86 y/o male with a history of diastolic CHF, Parkinson's disease w/ mild dementia, h/o falls, chronic atrial fibrillation on Eliquis, HTN, with known orthostasis/autonomic insufficiency, cirrhosis with evidence of portal HTN , history of renal mass, moderate aortic stenosis, suspected pulmonary fibrosis, chronic diastolic CHF, and BPH who presented to the ED on 02/05 with altered mental status. Head CT shows subacute L occipital infarct, no hemorrhage. CXR shows diffuse parenchymal fibrosis with a superimposed infiltrate in left base. LUE Doppler ultrasound negative for DVT. Pt febrile, hypotensive, tachypneic, and hypoxic in ED. WBC 13.88. POC lactic acid 2.14. Troponin 2.21. BNP 3606. Given 1L NSS bolus and 250 cc/hr fluids. Given azithromycin, vancomycin and cefepime in ED. -Repeat lactic acid improved with IVFs and abx to 1.7 MRI brain shortly after admission shows innumerable CVAs in embolic pattern in all vascular distributions Sepsis w/ acute metabolic encephalopathy, presumed HCAP, acute hypoxemic respiratory failure -Admit to telemetry -continue Zosyn and vancomycin IV -Blood and urine cultures pending -continue IVF with 1/2NSS at 125 cc/hr. Sodium elevated at 148 persists -O2 by protocol -DuoNebs QIDR and q2h prn SOB/wheezing Multiple ischemic embolic acute and subacute CVAs, Chronic A-fib on Eliquis- possible failure of Eliquis. With sepsis, could be septic emboli from SBE? -MRI brain shows bilateral subacute infarcts. Vascular distribution favors embolic etiology. -NPO with dysphagia for now, obtunded state -poor prognosis -repeat head CT without hemorrhagic conversion, discussed case with Neuro and Cardiology--> will start heparin gtt and watch for hemorrhagic conversion in the next 1-2 days--> discussed risks vs benefits with daughter but with ongoing A-fib and obvious embolic CVA, heparin is necessary -if deteriorating staus, repeat head TC to check for hemorrhage -consider comfort measures if not improving with treatment of PNA/sepsis and with time -PT/OT/ST evals -Neuro checks -start ASA NJ daily -repeat head CT tomorrow Elevated troponin-likely secondary to demand ischemia in setting of sepsis and CVA -Trop peaked on admission at 2.2, then trended downward -appreciate Cardiology consult -EKG q am and prn chest pain Atrial fibrillation, bradycardia, 5.5 second pause on telemetry--could be secondary to CVA, vs med SEs from Antiparkinson drugs? -holding Sinemet, Exelon -follow on tele -heparin gtt now BPH -restart alfuzosin 10 mg PO qhs and finasteride 5 mg PO qhs when able to -bladder scan -place Lim now to prevent outlet obstruction and while obtunded Diastolic CHF -Hold prn Lasix for now as pt needs fluid resuscitation for sepsis -Daily weights, I's & O's Parkinson's disease w/dementia holding Sinemet 25/100 2 tabs PO QID and Exelon 13.3 mg patch TD qd Orthostatic hypotension -holding Midodrine 7.5 mg PO TID while NPO LUE edema-unclear etiology-Doppler LUE negative x 2 serially DVT prophylaxis -heparin -WENDI cortez and SCDs Code Status -Level V, DO NOT RESUSCITATE Daughter reports pt has made it clear that he would not want artificial feeding tube or life support, ok with IV abx
[2017-02-06 23:40] LABS: PARTIAL THROMBOPLASTIN RATIO 1.8
[2017-02-07] VITALS (10 sets, daily range): BP systolic 104–164; BP diastolic 47–75; PULSE 57–85; TEMP 36.3–37.3; O2SAT 88–100
[2017-02-07] MEDS ORDERED: HEPARIN IV BOLUS 3,000 UNIT in SYRINGE 0 ML IV ONE
[2017-02-07] MEDS: MIDODRINE 2.5 MG TAB PO SCH ×3 (06:00→14:31)
[2017-02-07] MEDS: PIPERACILL/TAZOBAC IV 3.375 GM in DEXTROSE 5% 100ML 100 ML IV SCH ×3 (06:00→21:47)
[2017-02-07 06:33] LABS: MEAN CELL VOLUME 96.4 fL (80-100); MEAN CORPUSCULAR HEMOGLOBIN 32.3 pg (25-34); MEAN CORPUSCULAR HGB CONC 33.5 g/dl (32-36); MEAN PLATELET VOLUME 9.1 fL (7.4-10.4); PLATELET COUNT 120 K/uL (130-400); RED BLOOD COUNT 3.84 M/uL (4.7-6.1); WHITE BLOOD COUNT 13.71 K/uL (4.8-10.8)
[2017-02-07 06:58] LABS: PARTIAL THROMBOPLASTIN RATIO 1.9
[2017-02-07 07:00] LABS: BUN/CREATININE RATIO 35.6 (10-20); CALCIUM 7.8 mg/dl (8.5-10.1); CREATININE 0.81 mg/dl (0.60-1.40); POTASSIUM 3.7 mmol/L (3.5-5.1)
[2017-02-07 07:03] LABS: CHOLESTEROL/HDL RATIO 3.2
[2017-02-07] MEDS: ALBUT/IPRATROP 3MG/0.5MG NEB 3 ML VIAL INH SCH ×4 (07:25→19:37)
[2017-02-07 07:29] LABS: BASO % 0.4 %; BASO ABS # 0.06 K/uL (0-0.2); COMPLETE YES; EOS % 1.8 %; IG% 4.2 %; LYMPH % 11.2 %; LYMPH ABS # 1.54 K/uL (1.2-3.4); NEUT % 75.4 %
[2017-02-07] MEDS: CHOLECALCIFEROL 1000 INTER.UNIT TAB PO SCH (08:16)
[2017-02-07] MEDS: PANTOprazole SOD 40 MG TAB PO SCH (08:16)
[2017-02-07] MEDS: FINASTERIDE 5 MG TAB PO SCH (08:16)
[2017-02-07] MEDS: SENNA 8.6 MG TAB PO SCH (08:16)
[2017-02-07] MEDS: CEROVITE ADV FORMULA TAB PO SCH (08:17)
[2017-02-07] MEDS: NYSTATIN SUSP 500,000 U/5 ML UDC PO SCH ×2 (08:17→11:45)
[2017-02-07] MEDS: ASPIRIN 300 MG SUPP PR SCH (08:21)
[2017-02-07] MEDS ORDERED: ASPIRIN 81 MG ECTAB PO SCH (09:00)
--- NOTE | 2017-02-07 09:01 | Neurology Progress Notes ---
Neurology Progress Note Date of Service Feb 07, 2017. Subjective Follow-up for stroke The patient remains obtunded this morning. He does not respond to questions or voice any complaints. He becomes mildly agitated with tactile and noxious stimulation and intermittently moans. I reviewed the images and radiologist's interpretation of yesterday's follow-up CT of the head. There is no evidence of hemorrhage. Multifocal evolving embolic infarcts appreciated. The patient has been seen by Dr. Guerrero, cardiology, yesterday as well, I reviewed his consultation and agree with the impression and plan. Patient has been started on a heparin drip. There is not been much appreciable worsening in this patient's Parkinson's disease in spite of his inability to take Sinemet. Objective Date Time Temp Pulse Resp B/P (MAP) Pulse Ox O2 Delivery O2 Flow Rate FiO2 02/07/17 07:25 57 20 92 Nasal Cannula 2.0 02/07/17 06:59 36.9 66 20 130/73 (92) 91 Nasal Cannula 2.0 02/07/17 04:49 36.3 62 20 162/74 (103) 93 Nasal Cannula 2.0 02/07/17 04:00 Nasal Cannula 2.0 02/07/17 00:00 Nasal Cannula 2.0 02/06/17 23:27 36.8 65 18 148/69 (95) 94 Nasal Cannula 2.0 02/06/17 20:00 Nasal Cannula 2.0 02/06/17 19:22 Nasal Cannula 2.0 02/06/17 18:48 86 20 94 Nasal Cannula 2.0 02/06/17 15:51 36.7 80 20 115/73 (87) 93 Nasal Cannula 2.0 02/06/17 15:15 60 20 90 Nasal Cannula 2.0 02/06/17 12:00 Nasal Cannula 2.0 02/06/17 11:52 37.0 69 24 124/77 (93) 94 Oxymask 2.0 02/06/17 11:34 88 20 90 Nasal Cannula 2.0 02/06/17 10:30 68 93 Last 24 Hours Test 02/06/17 09:56 02/06/17 23:14 02/07/17 06:08 Estimated Average Glucose 105 mg/dl Hemoglobin A1c 5.3 % Activated Partial Thromboplast Time 45.9 SECONDS 49.6 SECONDS Partial Thromboplastin Ratio 1.8 1.9 White Blood Count 13.71 K/uL Red Blood Count 3.84 M/uL Hemoglobin 12.4 g/dL Hematocrit 37.0 % Mean Corpuscular Volume 96.4 fL Mean Corpuscular Hemoglobin 32.3 pg Mean Corpuscular Hemoglobin Concent 33.5 g/dl Platelet Count 120 K/uL Mean Platelet Volume 9.1 fL Neutrophils (%) (Auto) 75.4 % Lymphocytes (%) (Auto) 11.2 % Monocytes (%) (Auto) 7.0 % Eosinophils (%) (Auto) 1.8 % Basophils (%) (Auto) 0.4 % Neutrophils # (Auto) 10.33 K/uL Lymphocytes # (Auto) 1.54 K/uL Monocytes # (Auto) 0.96 K/uL Eosinophils # (Auto) 0.24 K/uL Basophils # (Auto) 0.06 K/uL RDW Standard Deviation 48.4 fL RDW Coefficient of Variation 13.7 % Immature Granulocyte % (Auto) 4.2 % Immature Granulocyte # (Auto) 0.58 K/uL Sodium Level 146 mmol/L Potassium Level 3.7 mmol/L Chloride Level 115 mmol/L Carbon Dioxide Level 24 mmol/L Anion Gap 7.0 mmol/L Blood Urea Nitrogen 29 mg/dl Creatinine 0.81 mg/dl Est Creatinine Clear Calc Drug Dose 69.7 ml/min Estimated GFR () 93.9 Estimated GFR (Non- 81.0 BUN/Creatinine Ratio 35.6 Random Glucose 82 mg/dl Calcium Level 7.8 mg/dl Triglycerides Level 74 mg/dl Cholesterol Level 77 mg/dl HDL Cholesterol 24 mg/dl LDL Cholesterol, Calculated 38 mg/dl VLDL Cholesterol, Calculated 15 mg/dl Cholesterol/HDL Ratio 3.2 Imaging: CT of the head reviewed and as described above. Exam: The patient is lying in bed. He becomes mildly agitated with tactile and noxious stimulation and will moan intermittently. He does not respond to questions or follow commands. He exhibits forced eyelid closure. Pupils are small, about 2 mm in diameter and react minimally to light. There is no gaze preference. There is not appear to be a gross facial droop with simple observation. Corneal reflexes and gag reflex intact. The right upper extremity continues to exhibit moderate rigidity. The left upper extremity is flaccid. A resting tremors not observed. Plantar responses are upgoing bilaterally. The patient moans and attempts to withdraw the feet to plantar stimulation as well. Current Inpatient Medications Medications (Trade) Dose Ordered Sig/Khurram Route Start Time Stop Time Status Last Admin Dose Admin Sodium Chloride 1,000 ml @ 75 mls/hr [id number] IV 02/05/17 15:30 03/07/17 13:46 02/06/17 18:26 75 MLS/HR Al Hydrox/Mg Hydrox/Simethicone (Maalox Max Susp) 15 ml Q4H PRN PO 02/05/17 14:00 03/07/17 13:59 Magnesium Hydroxide (Milk Of Magnesia Susp) 30 ml Q12H PRN PO 02/05/17 14:00 03/07/17 13:59 Ondansetron HCl (Zofran Inj) 4 mg Q6H PRN IV 02/05/17 14:00 03/07/17 13:59 Polyethylene (Miralax Powder Packet) 17 gm DAILY PRN PO 02/05/17 14:00 03/07/17 13:59 Alfuzosin HCl (Uroxatral Tab) 10 mg HS PO 02/05/17 21:00 03/07/17 20:59 Cholecalciferol (Vitamin D Tab) 1,000 inter.unit QAM PO 02/06/17 09:00 03/08/17 08:59 Finasteride (Proscar Tab) 5 mg QAM PO 02/06/17 09:00 03/08/17 08:59 Midodrine (Proamatine Tab) 7.5 mg TID@0700,1200,1500 PO 02/05/17 15:00 03/07/17 14:59 Multivitamins/ Minerals (Multivitamin W/ Minerals Tab) 1 tab DAILY PO 02/06/17 09:00 03/08/17 08:59 Senna (Senokot Tab) 8.6 mg QAM PO 02/06/17 09:00 03/08/17 08:59 Tramadol HCl (Ultram Tab) 25 mg Q12 PRN PO 02/05/17 14:15 03/07/17 14:14 Pantoprazole Sodium (Protonix Tab) 40 mg QAM PO 02/06/17 09:00 03/08/17 08:59 Miscellaneous Information (Order Awaiting Action) 1 ea QS N/A 02/05/17 16:00 03/07/17 15:59 Nystatin (Mycostatin Susp) 5 ml QID PO 02/05/17 17:00 02/10/17 16:59 Piperacillin Sod/ Tazobactam Sod (Consult) 1 ea UD PRN N/A 02/05/17 14:30 03/07/17 14:29 Vancomycin HCl (Consult) 1 ea UD PRN N/A 02/05/17 14:30 03/07/17 14:29 Albuterol/ Ipratropium (Duoneb) 3 ml QIDR INH 02/05/17 16:00 03/07/17 15:59 02/07/17 07:25 3 ML Albuterol/ Ipratropium (Duoneb) 3 ml Q2H PRN INH 02/05/17 15:15 03/07/17 15:14 Gadobutrol (Gadavist) 8.5 mmol UD PRN IV 02/05/17 15:15 02/09/17 15:14 Apixaban (Eliquis Tab) 5 mg BID PO 02/05/17 21:00 03/07/17 20:59 Future Hold Vancomycin HCl 1500 mg/Sodium Chloride 530 ml @ 200 mls/hr Q18H IV 02/06/17 02:00 02/13/17 01:59 02/06/17 20:01 200 MLS/HR Piperacillin Sod/ Tazobactam Sod 3.375 gm/Dextrose 115 ml @ 28.75 mls/ hr Q8H IV 02/05/17 22:00 02/12/17 13:59 02/07/17 06:00 28.75 MLS/HR Miscellaneous Information (Pharmacist Discharge Med Rec Consult) 1 ea UD PRN N/A 02/06/17 09:15 03/08/17 09:14 Heparin Sodium/ Dextrose 500 ml @ 19 mls/hr Q24H PRN IV 02/06/17 17:00 03/08/17 16:59 02/06/17 17:00 18 MLS/HR Aspirin (Aspirin Supp) 300 mg QAM NV 02/07/17 09:00 03/09/17 08:59 02/07/17 08:21 300 MG Impression Acute/subacute cardioembolic embolic infarcts affecting the bilateral cerebellar hemispheres as well as the bilateral cerebral hemispheres. No evidence of hemorrhagic conversion on yesterday's follow-up CT of the head, although the study does reveal mild evolving edema. Acute encephalopathy/delirium which seems slightly worse today compared with yesterday and probably in part related to mild stroke associated edema. Parkinson's disease and associated dementia, chronic condition. Plan Would obtain another repeat CT of the head to further exclude interval development of hemorrhagic transformation. If there is evidence of hemorrhage would discontinue heparin. If there is no evidence of hemorrhage on this follow-up CT of the head then it would be reasonable to resume the heparin drip. The Sinemet and Exelon patches may remain on hold. Prognosis poor. Discussed with Dr. Do.
--- NOTE | 2017-02-07 09:47 | Cardiology Follow-Up ---
Subjective Date of Service: Feb 07, 2017. History of Present Illness Mr. Torres is an 86 year old male with a medical history significant for permanent atrial fibrillation (Eliquis), Parkinson's disease with dementia, aortic stenosis, history of diastolic CHF and pulmonary fibrosis who was admitted on 02/06/17 with multi territory CVA. The patient is a resident at [facility] and was noted to have a cough and change in mental status. He was found to have multi territory embolic stroke on head CT and MRI. He has a history of atrial fibrillation and is anticoagulated with Eliquis. His heart rate is well controlled in atrial fibrillation without any rate controlling medications. He was noted to have a 5 second pause yesterday and an additional 5 second pause around 3 AM last night. He has been started back on anticoagulation with heparin. The patient was seen at the bedside today. He is somnolent and somewhat confused. Unable to provide history but does answer some yes or no questions. He denies pain. His friend, Obey, was in the room. No family was present at the time of my exam. Social History Smoking Status: Never Smoker History of Alcohol Use: No Objective Vital Signs Past 12 Hours Date Time Temp Pulse Resp B/P (MAP) Pulse Ox O2 Delivery O2 Flow Rate FiO2 02/07/17 07:25 57 20 92 Nasal Cannula 2.0 02/07/17 06:59 36.9 66 20 130/73 (92) 91 Nasal Cannula 2.0 02/07/17 04:49 36.3 62 20 162/74 (103) 93 Nasal Cannula 2.0 02/07/17 04:00 Nasal Cannula 2.0 02/07/17 00:00 Nasal Cannula 2.0 02/06/17 23:27 36.8 65 18 148/69 (95) 94 Nasal Cannula 2.0 Last Recorded Weight-Kilograms: 86.500 Physical Exam General: Lying in bed. No acute distress. Answers some questions with yes or no but does not open eyes. HEENT: Unremarkable. Neck: No carotid bruit. No appreciable JVD. Lungs: Crackles at left base. Otherwise no wheezes or rhonchi. No respiratory distress. Cardiac: Irregularly irregular rhythm with controlled rate. Distant heart sounds. Grade 2/6 basal systolic ejection murmur. No diastolic murmur or gallop. Abdomen: Soft. Normal bowel sounds. Extremities: No cyanosis, clubbing or peripheral edema. Peripheral pulses intact. Neurologic: Somnolent and somewhat confused. Difficulty moving extremities. Data Laboratory Results: Last 24 Hours Test 02/06/17 09:56 02/06/17 23:14 02/07/17 06:08 Estimated Average Glucose 105 mg/dl Hemoglobin A1c 5.3 % Activated Partial Thromboplast Time 45.9 SECONDS 49.6 SECONDS Partial Thromboplastin Ratio 1.8 1.9 White Blood Count 13.71 K/uL Red Blood Count 3.84 M/uL Hemoglobin 12.4 g/dL Hematocrit 37.0 % Mean Corpuscular Volume 96.4 fL Mean Corpuscular Hemoglobin 32.3 pg Mean Corpuscular Hemoglobin Concent 33.5 g/dl Platelet Count 120 K/uL Mean Platelet Volume 9.1 fL Neutrophils (%) (Auto) 75.4 % Lymphocytes (%) (Auto) 11.2 % Monocytes (%) (Auto) 7.0 % Eosinophils (%) (Auto) 1.8 % Basophils (%) (Auto) 0.4 % Neutrophils # (Auto) 10.33 K/uL Lymphocytes # (Auto) 1.54 K/uL Monocytes # (Auto) 0.96 K/uL Eosinophils # (Auto) 0.24 K/uL Basophils # (Auto) 0.06 K/uL RDW Standard Deviation 48.4 fL RDW Coefficient of Variation 13.7 % Immature Granulocyte % (Auto) 4.2 % Immature Granulocyte # (Auto) 0.58 K/uL Sodium Level 146 mmol/L Potassium Level 3.7 mmol/L Chloride Level 115 mmol/L Carbon Dioxide Level 24 mmol/L Anion Gap 7.0 mmol/L Blood Urea Nitrogen 29 mg/dl Creatinine 0.81 mg/dl Est Creatinine Clear Calc Drug Dose 69.7 ml/min Estimated GFR () 93.9 Estimated GFR (Non- 81.0 BUN/Creatinine Ratio 35.6 Random Glucose 82 mg/dl Calcium Level 7.8 mg/dl Triglycerides Level 74 mg/dl Cholesterol Level 77 mg/dl HDL Cholesterol 24 mg/dl LDL Cholesterol, Calculated 38 mg/dl VLDL Cholesterol, Calculated 15 mg/dl Cholesterol/HDL Ratio 3.2 Imaging: CXR 02/06/17 with pulmonary fibrosis and infiltrate left base EKG:Atrial fibrillation, occasional PVC versus aberrantly conducted beat, diffuse nonspecific ST wave abnormality. Telemetry reviewed: Atrial fibrillation with PVCs; 5 second pause overnight Echocardiogram: Normal LV systolic function (EF 60-65%), moderate concentric LVH , no regional wall motion abnormalities, moderate to severe aortic stenosis, mild aortic regurgitation, moderate pleural effusion suggested, no evidence of interatrial shunt. Assessment and Plan Mr. Torres is an 86 year old male with multiple comorbidities including permanent atrial fibrillation (Eliquis) and Parkinson's disease with dementia who was admitted on 02/06/17 with acute multi territory embolic CVA and pneumonia. The patient suffered multi territory embolic CVA likely secondary to atrial fibrillation while on anticoagulation therapy with Eliquis. Unfortunately, he seems to be left with significant neurological deficits and his overall prognosis is poor. This could be considered a failure of therapy however, we would recommend continuing Eliquis for anticoagulation as managing warfarin in this patient would likely be difficult. There was an elevation in his cardiac enzymes (troponin peaked at 2.2) but this is in the setting of pneumonia and acute CVA. Unlikely to represent acute coronary syndrome. He is in permanent atrial fibrillation and there has been evidence of two 5 second pauses on telemetry. We could consider pacemaker placement but given his current functional status we feel it is not indicated at this time as the patient will likely be bedbound. The pauses do place him at an increased risk of seizures. Dr. Guerrero discussed this with the patient's family yesterday and they preferred conservative therapy and were not interested in any temporary or permanent pacemaker. Certainly if his functional status were to improve we could revisit the issue in the future. Patient was seen with Dr. Triana and the plan was made in collaboration with him.
[2017-02-07] MEDS: SODIUM CHLORIDE 0.45% 1000ML 1,000 ML IV SCH ×2 (10:42→21:09)
--- NOTE | 2017-02-07 12:17 | DIAGNOSTIC IMAGING REPORT ---
HEAD CT NONCONTRAST CT DOSE: 1074.96 mGy.cm HISTORY: Stroke f/u for hemorrhagic conversion of CVA TECHNIQUE: Multiaxial CT images of the head were performed without the use of intravenous contrast. Comparison: 02/06/2017 Findings: The paranasal sinuses and mastoid air cells are clear. Several old cerebellar infarcts bilaterally. Moderate chronic small vessel change. Evolving left occipital infarct with what is present in old right frontal infarct. No evidence for acute intracranial hemorrhage. Impression: Multifocal infarcts as described. No acute intracranial hemorrhage. No midline shift. Electronically signed by: Rik Phan M.D. 02/07/2017 12:16 PM Dictated Date/Time: 02/07/2017 12:13 PM
[2017-02-07] MEDS ORDERED: NURSING VERBAL MED ORDER ONE (16:45)
--- NOTE | 2017-02-07 17:02 | Hospitalist Progress Note ---
Hospitalist Progress Note Date of Service Feb 07, 2017. Subjective Pt evaluation today including: conversation w/ patient, conversation w/ family , lab review, review of studies, conversation w/ cardiology consultants (Neuro), review of inpatient medication list Voiding: arteaga catheter in place Pt a little more responsive today, answering some questions at times. Speech saw and recommended pureed diet and nectar thick liquids. Repeat head CT neg for hemorrhage Constitutional: No fever Additional Comments: difficult to obtain ROS Objective Vital Signs Date Time Temp Pulse Resp B/P (MAP) Pulse Ox O2 Delivery O2 Flow Rate FiO2 02/07/17 16:00 Nasal Cannula 2.0 02/07/17 15:53 36.8 85 19 113/75 (88) 92 Nasal Cannula 2.0 02/07/17 15:06 83 22 91 Nasal Cannula 2.0 02/07/17 12:15 Nasal Cannula 2.0 02/07/17 11:12 36.8 71 18 157/72 (100) 96 Nasal Cannula 02/07/17 11:04 67 20 88 Nasal Cannula 2.0 02/07/17 08:15 Nasal Cannula 2.0 02/07/17 07:25 57 20 92 Nasal Cannula 2.0 02/07/17 06:59 36.9 66 20 130/73 (92) 91 Nasal Cannula 2.0 02/07/17 04:49 36.3 62 20 162/74 (103) 93 Nasal Cannula 2.0 02/07/17 04:00 Nasal Cannula 2.0 02/07/17 00:00 Nasal Cannula 2.0 02/06/17 23:27 36.8 65 18 148/69 (95) 94 Nasal Cannula 2.0 02/06/17 20:00 Nasal Cannula 2.0 02/06/17 19:22 Nasal Cannula 2.0 02/06/17 18:48 86 20 94 Nasal Cannula 2.0 Physical Exam General Appearance: no apparent distress, + thin Eyes: sclerae normal, + pertinent finding (won't voluntarily open eyes) Neck: trachea midline Respiratory/Chest: lungs clear, normal breath sounds, no respiratory distress, no accessory muscle use Cardiovascular: no edema, no gallop, no murmur, + irregularly irregular Abdomen: normal bowel sounds, non tender, soft, + pertinent finding (Arteaga in palce) Extremities: no pedal edema, no calf tenderness, + swelling (LUE) Neurologic/Psychiatric: + pertinent finding (follows some commands, speech garbled, able to move left leg and right arm today but won't move right LE or left arm (flaccid)) Skin: warm/dry Laboratory Results Last 24 Hours Test 02/06/17 23:14 02/07/17 06:08 Activated Partial Thromboplast Time 45.9 SECONDS 49.6 SECONDS Partial Thromboplastin Ratio 1.8 1.9 White Blood Count 13.71 K/uL Red Blood Count 3.84 M/uL Hemoglobin 12.4 g/dL Hematocrit 37.0 % Mean Corpuscular Volume 96.4 fL Mean Corpuscular Hemoglobin 32.3 pg Mean Corpuscular Hemoglobin Concent 33.5 g/dl Platelet Count 120 K/uL Mean Platelet Volume 9.1 fL Neutrophils (%) (Auto) 75.4 % Lymphocytes (%) (Auto) 11.2 % Monocytes (%) (Auto) 7.0 % Eosinophils (%) (Auto) 1.8 % Basophils (%) (Auto) 0.4 % Neutrophils # (Auto) 10.33 K/uL Lymphocytes # (Auto) 1.54 K/uL Monocytes # (Auto) 0.96 K/uL Eosinophils # (Auto) 0.24 K/uL Basophils # (Auto) 0.06 K/uL RDW Standard Deviation 48.4 fL RDW Coefficient of Variation 13.7 % Immature Granulocyte % (Auto) 4.2 % Immature Granulocyte # (Auto) 0.58 K/uL Sodium Level 146 mmol/L Potassium Level 3.7 mmol/L Chloride Level 115 mmol/L Carbon Dioxide Level 24 mmol/L Anion Gap 7.0 mmol/L Blood Urea Nitrogen 29 mg/dl Creatinine 0.81 mg/dl Est Creatinine Clear Calc Drug Dose 69.7 ml/min Estimated GFR () 93.9 Estimated GFR (Non- 81.0 BUN/Creatinine Ratio 35.6 Random Glucose 82 mg/dl Calcium Level 7.8 mg/dl Triglycerides Level 74 mg/dl Cholesterol Level 77 mg/dl HDL Cholesterol 24 mg/dl LDL Cholesterol, Calculated 38 mg/dl VLDL Cholesterol, Calculated 15 mg/dl Cholesterol/HDL Ratio 3.2 Assessment and Plan 86 y/o male with a history of diastolic CHF, Parkinson's disease w/ mild dementia, h/o falls, chronic atrial fibrillation on Eliquis, HTN, with known orthostasis/autonomic insufficiency, cirrhosis with evidence of portal HTN , history of renal mass, moderate aortic stenosis, suspected pulmonary fibrosis, chronic diastolic CHF, and BPH who presented to the ED on 02/05 with altered mental status. Head CT shows subacute L occipital infarct, no hemorrhage. CXR shows diffuse parenchymal fibrosis with a superimposed infiltrate in left base. LUE Doppler ultrasound negative for DVT. Pt febrile, hypotensive, tachypneic, and hypoxic in ED. WBC 13.88. POC lactic acid 2.14. Troponin 2.21. BNP 3606. Given 1L NSS bolus and 250 cc/hr fluids. Given azithromycin, vancomycin and cefepime in ED. -Repeat lactic acid improved with IVFs and abx to 1.7 MRI brain shortly after admission shows innumerable CVAs in embolic pattern in all vascular distributions Sepsis w/ acute metabolic encephalopathy, presumed HCAP, acute hypoxemic respiratory failure--> improving, afebrile -continue telemetry -continue Zosyn and dc vancomycin IV as MRSA swab negative -Blood and urine cultures pending -continue IVF with 1/2NSS at 125 cc/hr. -O2 by protocol -DuoNebs QIDR and q2h prn SOB/wheezing Hypernatremia--Na+ 148 onadmission, now improving at 146 -continue IVFs as above Multiple ischemic embolic acute and subacute CVAs, Chronic A-fib on Eliquis- possible failure of Eliquis. No vegetation on valves on ECHO, BCXs no growth so far, most likely not septic emboli. A-fib with emboli as most likely cause despite being on Eliquis -MRI brain shows bilateral subacute infarcts. Vascular distribution favors embolic etiology. -Improved mental status today--> SPeech cleared for pureed diet with nectar thick liquids -poor prognosis but may have some recovery -repeat head CT without hemorrhagic conversion on 02/06 and 02/07, discussed case with Neuro and Cardiology--> continue heparin gtt and watch for hemorrhagic conversion in the next 1-2 days--> discussed risks vs benefits with daughter but with ongoing A-fib and obvious embolic CVA, heparin is necessary -if deteriorating staus, repeat head CT to check for hemorrhage -consider comfort measures if not improving with treatment of PNA/sepsis and with time -PT/OT/ST evals -Neuro checks -cont ASA WA daily Elevated troponin-likely secondary to demand ischemia in setting of sepsis and CVA -Trop peaked on admission at 2.2, then trended downward -appreciate Cardiology consult -EKG ok Atrial fibrillation, bradycardia, 5.5 second pause on telemetry x 2--could be secondary to CVA, vs med SEs from Antiparkinson drugs? -holding Sinemet, Exelon -follow on tele -heparin gtt now BPH -restart alfuzosin 10 mg PO qhs and finasteride 5 mg PO qhs when able to -place Arteaga now to prevent outlet obstruction and while obtunded Chronic Diastolic CHF -Hold prn Lasix for now as pt needs fluid resuscitation for sepsis -Daily weights, I's & O's Parkinson's disease w/dementia holding Sinemet 25/100 2 tabs PO QID and Exelon 13.3 mg patch TD qd Orthostatic hypotension -restart Midodrine 7.5 mg PO TID LUE edema-unclear etiology-Doppler LUE negative x 2 serially DVT prophylaxis -heparin -WENDI cortez and SCDs Code Status -Level V, DO NOT RESUSCITATE Daughter reports pt has made it clear that he would not want artificial feeding tube or life support, ok with IV abx
[2017-02-07] MEDS: HEPARIN 25,000 UNIT/500ML D5W 500 ML IV PRN (19:05)
[2017-02-07] MEDS: ALFUZosin TAB 10 MG TAB PO SCH (21:11)
[2017-02-08] VITALS (15 sets, daily range): BP systolic 108–123; BP diastolic 65–75; PULSE 64–89; TEMP 36.4–37.3; O2SAT 90–97
[2017-02-08] MEDS: ALBUT/IPRATROP 3MG/0.5MG NEB 3 ML VIAL INH SCH ×6 (04:14→20:12)
[2017-02-08] MEDS: PIPERACILL/TAZOBAC IV 3.375 GM in DEXTROSE 5% 100ML 100 ML IV SCH ×3 (06:04→22:02)
[2017-02-08 06:24] LABS: BASO % 0.1 %; BASO ABS # 0.02 K/uL (0-0.2); COMPLETE YES; EOS % 0.6 %; IG% 2.3 %; LYMPH % 6.5 %; LYMPH ABS # 1.01 K/uL (1.2-3.4); MEAN CELL VOLUME 96.8 fL (80-100); MEAN CORPUSCULAR HEMOGLOBIN 32.8 pg (25-34); MEAN CORPUSCULAR HGB CONC 33.9 g/dl (32-36); MEAN PLATELET VOLUME 9.2 fL (7.4-10.4); MONO % 4.7 %; NEUT % 85.8 %; PLATELET COUNT 118 K/uL (130-400); RED BLOOD COUNT 3.72 M/uL (4.7-6.1); WHITE BLOOD COUNT 15.46 K/uL (4.8-10.8)
[2017-02-08 06:36] LABS: PARTIAL THROMBOPLASTIN RATIO 1.9
[2017-02-08 06:42] LABS: BUN/CREATININE RATIO 28.4 (10-20); CALCIUM 7.6 mg/dl (8.5-10.1); CREATININE 0.88 mg/dl (0.60-1.40); POTASSIUM 3.2 mmol/L (3.5-5.1)
[2017-02-08] MEDS ORDERED: VANCOMYCIN TROUGH SCH (07:30)
[2017-02-08] MEDS: MIDODRINE 2.5 MG TAB PO SCH ×3 (08:08→15:14)
[2017-02-08] MEDS ORDERED: NURSING VERBAL MED ORDER ONE (08:45)
[2017-02-08] MEDS: CEROVITE ADV FORMULA TAB PO SCH (08:48)
[2017-02-08] MEDS: PANTOprazole SOD 40 MG TAB PO SCH (08:48)
[2017-02-08] MEDS: FINASTERIDE 5 MG TAB PO SCH (08:48)
[2017-02-08] MEDS: SENNA 8.6 MG TAB PO SCH (08:49)
[2017-02-08] MEDS: CHOLECALCIFEROL 1000 INTER.UNIT TAB PO SCH (08:49)
[2017-02-08] MEDS ORDERED: FUROSEMIDE INJ 20 MG in SYRINGE 0 ML IV ONE ×2 (09:15→16:30)
[2017-02-08] MEDS: ASPIRIN 300 MG SUPP PR SCH (09:16)
[2017-02-08] MEDS: POTASSIUM CHLR 10 MEQ / WTR 10 MEQ in PREMIXED WATER 100 ML IV SCH ×6 (09:44→17:44)
--- NOTE | 2017-02-08 16:39 | Hospitalist Progress Note ---
Hospitalist Progress Note Date of Service Feb 08, 2017. Subjective Pt evaluation today including: conversation w/ family, physical exam Voiding: arteaga catheter in place Had worsening tachypnea and hypoxia this AM, WBC count up, however daughters report he woke up and ate half his lunch but still has never opened his eyes. He will answer questions appropriately at times. For me, he is sleeping with head and neck flexed with chin down towards chest, not waking up, mumbled something. Was given one dose lasix this AM and put out more urine, breathing a little less labored now All Other Systems: Reviewed and Negative Objective Vital Signs Date Time Temp Pulse Resp B/P (MAP) Pulse Ox O2 Delivery O2 Flow Rate FiO2 02/08/17 15:40 73 24 94 Nasal Cannula 6.0 02/08/17 15:11 67 115/67 (83) 02/08/17 12:00 Nasal Cannula 6.5 93 02/08/17 11:28 36.4 75 18 113/74 (87) 94 Oxymask 8.0 02/08/17 11:20 74 34 96 Mask 7.0 02/08/17 09:42 36 108/65 (79) 94 Humidified Oxygen 8.0 Mask 02/08/17 08:41 38 93 Humidified Oxygen 8.0 Mask 02/08/17 08:22 40 91 Nasal Cannula 6.0 Humidified Oxygen 02/08/17 08:02 36.7 83 19 118/73 (88) 90 Humidified Oxygen 4.0 02/08/17 08:00 91 Nasal Cannula 6.0 02/08/17 08:00 91 Nasal Cannula 6.0 02/08/17 08:00 Nasal Cannula 6.0 91 02/08/17 07:24 64 22 97 Nasal Cannula 5.0 02/08/17 04:14 89 40 92 Nasal Cannula 5.0 02/08/17 04:00 Nasal Cannula 3.0 02/08/17 04:00 37.3 74 30 111/65 (80) 90 Nasal Cannula 5.0 02/08/17 00:00 Nasal Cannula 3.0 02/07/17 23:43 37.0 73 22 104/47 (66) 90 Nasal Cannula 3.0 02/07/17 20:03 37.3 78 20 164/72 (102) 100 Nasal Cannula 2.0 02/07/17 20:00 Nasal Cannula 2.0 02/07/17 19:37 77 20 92 Nasal Cannula 2.0 Physical Exam General Appearance: + mild distress (sitting in bed sleeping with head and neck flexed towards chest) Neck: trachea midline Respiratory/Chest: + respiratory distress (tachyneam some accessory muscle use) , + wheezing (diffuse) Cardiovascular: no murmur, + irregularly irregular (with normal rate) Abdomen: normal bowel sounds, non tender, soft Extremities: non-tender, normal inspection, no pedal edema, no calf tenderness Neurologic/Psychiatric: + pertinent finding (obtunded, not answering questions , not following commands) Skin: warm/dry Laboratory Results Last 24 Hours Test 02/08/17 05:54 White Blood Count 15.46 K/uL Red Blood Count 3.72 M/uL Hemoglobin 12.2 g/dL Hematocrit 36.0 % Mean Corpuscular Volume 96.8 fL Mean Corpuscular Hemoglobin 32.8 pg Mean Corpuscular Hemoglobin Concent 33.9 g/dl Platelet Count 118 K/uL Mean Platelet Volume 9.2 fL Neutrophils (%) (Auto) 85.8 % Lymphocytes (%) (Auto) 6.5 % Monocytes (%) (Auto) 4.7 % Eosinophils (%) (Auto) 0.6 % Basophils (%) (Auto) 0.1 % Neutrophils # (Auto) 13.26 K/uL Lymphocytes # (Auto) 1.01 K/uL Monocytes # (Auto) 0.73 K/uL Eosinophils # (Auto) 0.09 K/uL Basophils # (Auto) 0.02 K/uL RDW Standard Deviation 49.6 fL RDW Coefficient of Variation 14.0 % Immature Granulocyte % (Auto) 2.3 % Immature Granulocyte # (Auto) 0.35 K/uL Activated Partial Thromboplast Time 49.7 SECONDS Partial Thromboplastin Ratio 1.9 Sodium Level 146 mmol/L Potassium Level 3.2 mmol/L Chloride Level 114 mmol/L Carbon Dioxide Level 22 mmol/L Anion Gap 10.0 mmol/L Blood Urea Nitrogen 25 mg/dl Creatinine 0.88 mg/dl Est Creatinine Clear Calc Drug Dose 64.5 ml/min Estimated GFR () 90.8 Estimated GFR (Non- 78.3 BUN/Creatinine Ratio 28.4 Random Glucose 86 mg/dl Calcium Level 7.6 mg/dl Assessment and Plan 86 y/o male with a history of diastolic CHF, Parkinson's disease w/ mild dementia, h/o falls, chronic atrial fibrillation on Eliquis, HTN, with known orthostasis/autonomic insufficiency, cirrhosis with evidence of portal HTN , history of renal mass, moderate aortic stenosis, suspected pulmonary fibrosis, chronic diastolic CHF, and BPH who presented to the ED on 02/05 with altered mental status. Head CT shows subacute L occipital infarct, no hemorrhage. CXR shows diffuse parenchymal fibrosis with a superimposed infiltrate in left base. LUE Doppler ultrasound negative for DVT. Pt febrile, hypotensive, tachypneic, and hypoxic in ED. WBC 13.88. POC lactic acid 2.14. Troponin 2.21. BNP 3606. Given azithromycin, vancomycin and cefepime in ED. -Repeat lactic acid improved with IVFs and abx to 1.7 MRI brain shortly after admission shows innumerable CVAs in embolic pattern in all vascular distributions Sepsis w/ acute metabolic encephalopathy, presumed HCAP, acute hypoxemic respiratory failure-->worsening respiratory status today. WBC count back up -continue telemetry -continue Zosyn and add vancomycin IV back on for worsening condition despite neg MRSA swab -Blood cx NG, Ur cx no growth -held IVFs for fluid overload and giving lasix 20mg IV prn -O2 by protocol -DuoNebs QIDR and q2h prn SOB/wheezing Hypernatremia--Na+ 148 on admission, now improving at 146 but now seems volume overloaded -stopped IVFs -follow PRP Multiple ischemic embolic acute and subacute CVAs, Chronic A-fib on Eliquis- possible failure of Eliquis. No vegetation on valves on ECHO, BCXs no growth so far, most likely not septic emboli. A-fib with emboli as most likely cause despite being on Eliquis -MRI brain shows bilateral subacute infarcts. Vascular distribution favors embolic etiology. mental status waxes and wanes--> Speech cleared for pureed diet with nectar thick liquids, is eating at times and doing ok with it -poor prognosis but may have some recovery -repeat head CT without hemorrhagic conversion on 02/06 and 02/07, discussed case with Neuro and Cardiology--> continue heparin gtt and watch for hemorrhagic conversion in the next 1-2 days--> discussed risks vs benefits with daughter but with ongoing A-fib and obvious embolic CVA, heparin is necessary -if deteriorating status, repeat head CT to check for hemorrhage--> check head CT now -consider comfort measures if not improving with treatment of PNA/sepsis and with time -PT/OT/ST evals -Neuro checks -cont ASA NM daily -Palliative Care consult placed as family agreeable to discuss goals of care Elevated troponin-likely secondary to demand ischemia in setting of sepsis and CVA -Trop peaked on admission at 2.2, then trended downward -appreciate Cardiology consult- no further intervention or eval -EKG ok Atrial fibrillation, bradycardia, 5.5 second pause on telemetry x 2--could be secondary to CVA, vs med SEs from Antiparkinson drugs? No further bradycardia or pauses on tele last 24 hrs -holding Sinemet, Exelon -follow on tele -heparin gtt now continues BPH -restart alfuzosin 10 mg PO qhs and finasteride 5 mg PO qhs when able to -continue Arteaga now to prevent outlet obstruction and while obtunded Acute on Chronic Diastolic CHF-now fluid overloaded on exam -giving lasix now -Daily weights, I's & O's Parkinson's disease w/dementia holding Sinemet 25/100 2 tabs PO QID and Exelon 13.3 mg patch TD qd Orthostatic hypotension -restart Midodrine 7.5 mg PO TID LUE edema-unclear etiology-Doppler LUE negative x 2 serially DVT prophylaxis -heparin -WENDI cortez and SCDs Code Status -Level V, DO NOT RESUSCITATE Daughter reports pt has made it clear that he would not want artificial feeding tube or life support, ok with IV abx
--- NOTE | 2017-02-08 16:39 | Palliative Care Progress Note ---
Palliative Care Progress Note Date of Service Feb 08, 2017. Subjective Meeting with patient's daughters tomorrow at 1000.
[2017-02-08] MEDS ORDERED: VANCOMYCIN CONSULT ACTIVE PRN (18:00)
[2017-02-08] MEDS: VANCOMYCIN INJ 1,500 MG in SODIUM CHLORIDE 0.9% 500ML 500 ML IV SCH (18:32)
--- NOTE | 2017-02-08 19:57 | DIAGNOSTIC IMAGING REPORT ---
CT HEAD WITHOUT CONTRAST (CT) CLINICAL HISTORY: Change in mental status. Stroke. COMPARISON STUDY: 02/07/2017 TECHNIQUE: Axial CT of the brain is performed from the vertex to the skull base. IV contrast was not administered for this examination. CT DOSE: 1473.09 mGy.cm FINDINGS: No intra or extra-axial mass lesions are visualized. There are bilateral hemispheric and bilateral cerebellar subacute infarcts. There is no evidence of acute hemorrhage. There is no evidence of midline shift. There are patchy white matter hypodensities likely on a small vessel basis. There is no evidence of pathologic ventricular dilatation. There is no evidence of acute sinusitis IMPRESSION: Multifocal subacute cerebellar and bihemispheric supratentorial infarcts. No evidence of acute hemorrhage. Electronically signed by: Chidi Jacobsen M.D. 02/08/2017 7:56 PM Dictated Date/Time: 02/08/2017 7:53 PM
[2017-02-08] MEDS: HEPARIN 25,000 UNIT/500ML D5W 500 ML IV PRN (20:42)
[2017-02-08] MEDS: ALFUZosin TAB 10 MG TAB PO SCH (20:43)
[2017-02-08] MEDS ORDERED: VANCOMYCIN INJ 1,000 MG in SODIUM CHLORIDE 0.9% 250ML 250 ML IV SCH (21:00)
--- NOTE | 2017-02-08 23:04 | Pharmacy Progress Note ---
Pharmacy Abx Initial Consult Date of Service Feb 08, 2017. Pharmacy Dosing Scope Date of Consult: 02/08/17 Consultation requested by: Dr. Do Pharmacy is consulted to initiate vancomycin IV dosing therapy, order appropriate labs and adjust drug dose/frequency. Subjective The patient is a 86 year old male admitted on Feb 05, 2017 at 14:00. Objective Height (Feet): 5 Height (Inches): 7.00 Weight (Kilograms): 87.700 Vital Signs (Past 12Hrs) Vital Signs Past 12 Hours Date Time Temp Pulse Resp B/P (MAP) Pulse Ox O2 Delivery O2 Flow Rate FiO2 02/08/17 20:13 79 44 92 Mask 5.0 02/08/17 20:00 Nasal Cannula 7.0 02/08/17 19:56 36.7 79 20 119/75 (90) 93 Oxymask 6.0 02/08/17 16:00 Nasal Cannula 6.5 02/08/17 15:40 73 24 94 Nasal Cannula 6.0 02/08/17 15:11 67 115/67 (83) 02/08/17 12:00 Nasal Cannula 6.5 93 02/08/17 11:28 36.4 75 18 113/74 (87) 94 Oxymask 8.0 02/08/17 11:20 74 34 96 Mask 7.0 Lab Results (24Hrs) Laboratory Tests (24 Hours) Test 02/08/17 05:54 White Blood Count 15.46 K/uL (4.8-10.8) H Red Blood Count 3.72 M/uL (4.7-6.1) L Hemoglobin 12.2 g/dL (14.0-18.0) L Hematocrit 36.0 % (42-52) L Mean Corpuscular Volume 96.8 fL (80-100) Mean Corpuscular Hemoglobin 32.8 pg (25-34) Mean Corpuscular Hemoglobin Concent 33.9 g/dl (32-36) Platelet Count 118 K/uL (130-400) L Mean Platelet Volume 9.2 fL (7.4-10.4) Neutrophils (%) (Auto) 85.8 % Lymphocytes (%) (Auto) 6.5 % Monocytes (%) (Auto) 4.7 % Eosinophils (%) (Auto) 0.6 % Basophils (%) (Auto) 0.1 % Neutrophils # (Auto) 13.26 K/uL (1.4-6.5) H Lymphocytes # (Auto) 1.01 K/uL (1.2-3.4) L Monocytes # (Auto) 0.73 K/uL (0.11-0.59) H Eosinophils # (Auto) 0.09 K/uL (0-0.5) Basophils # (Auto) 0.02 K/uL (0-0.2) Micro Results Date/Time Source Procedure Growth Status 02/05/17 10:30 Blood Blood Culture - Preliminary NO GROWTH TO DATE. Resulted 02/05/17 09:49 Blood Blood Culture - Preliminary NO GROWTH TO DATE. Resulted 02/06/17 11:10 Nasal MRSA DNA Surveillance Screen - Final Specimen Negative for MRSA by DNA Probe Complete 02/05/17 00:00 Urine,Catheterized Urine Culture - Final NO GROWTH - LESS THAN 1,000 COLONIES/ML Complete Risk Factors for Resistance Patient is a snf resident. Assessment & Plan Assessment & Plan Assessment 86 year old male admitted from [facility] for HCAP. Plan Pharmacy has been consulted for treatment of HCAP. Vancomycin IV was started on 02/05 on admission. Pt received 1000mg in ER, then 1500mg IV q 18 hrs. Therapy was dc'd on 02/07 since MRSA swab was negative. IV Vanco was restarted today because, per Dr Do's note, patient is not doing well. Vancomycin IV * No loading dose * Maintenance dose: 1500 mg IV (17 mg/kg) every 18 hours * Estimated P'kinetic levels:ke= 0.0519/hr, t1/2= 13 hrs * Goal trough level for HCAP : 15 to 20 mcg/mL * Trough level is ordered at 2330 on 02/10, prior to midnite dose. Piperacillin/tazobactam * 3.375 g IV extended infusion every 8 hours for CrCl greater than 20 mL/min Pharmacy will continue to follow and will adjust dose/frequency as necessary. Thank you.
[2017-02-09] VITALS (15 sets, daily range): BP systolic 95–151; BP diastolic 59–82; PULSE 66–99; TEMP 36.3–37.2; O2SAT 91–97
[2017-02-09] MEDS: PIPERACILL/TAZOBAC IV 3.375 GM in DEXTROSE 5% 100ML 100 ML IV SCH ×3 (05:48→21:22)
[2017-02-09 06:05] LABS: HEMATOCRIT 34.1 % (42-52); MEAN CELL VOLUME 96.1 fL (80-100); MEAN CORPUSCULAR HGB CONC 32.3 g/dl (32-36); MEAN PLATELET VOLUME 9.3 fL (7.4-10.4); PLATELET COUNT 136 K/uL (130-400); RED BLOOD COUNT 3.55 M/uL (4.7-6.1); WHITE BLOOD COUNT 14.45 K/uL (4.8-10.8)
[2017-02-09 06:17] LABS: PARTIAL THROMBOPLASTIN RATIO 1.9
[2017-02-09] MEDS: ALBUT/IPRATROP 3MG/0.5MG NEB 3 ML VIAL INH SCH ×4 (07:17→18:47)
[2017-02-09] MEDS: SENNA 8.6 MG TAB PO SCH (08:09)
[2017-02-09] MEDS: CHOLECALCIFEROL 1000 INTER.UNIT TAB PO SCH (08:09)
[2017-02-09] MEDS: CEROVITE ADV FORMULA TAB PO SCH (08:10)
[2017-02-09] MEDS: FINASTERIDE 5 MG TAB PO SCH (08:10)
[2017-02-09] MEDS: PANTOprazole SOD 40 MG TAB PO SCH (08:10)
[2017-02-09] MEDS: MIDODRINE 2.5 MG TAB PO SCH ×3 (08:10→14:59)
[2017-02-09] MEDS: ASPIRIN 300 MG SUPP PR SCH (08:12)
[2017-02-09] MEDS: POTASSIUM CHLR 10 MEQ / WTR 10 MEQ in PREMIXED WATER 100 ML IV SCH ×4 (09:07→12:16)
--- NOTE | 2017-02-09 10:06 | Cardiology Follow-Up ---
Cardiology Follow-Up Date of Service Feb 09, 2017. Cardiology Follow-Up Subjective Somnolent, difficult to arouse. Objective Blood pressure is 95/60 with an irregular pulse of 80 to 90. Respiratory rate is 22 the patient is afebrile 36.3 degrees Celsius. Neck is supple with full carotid upstrokes. Jugular venous pressure cannot be assessed. Cardiovascular exam reveals an irregularly regular rhythm with distant heart sounds. Lungs note coarse breath sounds throughout Abdomen is soft Extremities reveal trace pretibial edema. Data CBC notes a hemoglobin of 11.0, hematocrit 34.1, white count 14.4, platelet count [id number]. Electrolytes notice sodium of 146, potassium 3.2, chloride 114, bicarb 22, BUN 25, creatinine 0.88, and glucose of 86. bookkeepers supervisor notes atrial fibrillation with a ventricular response of 80-90. No pauses over the last 48 hours. Impression and plan 1. 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 May be considered an Eliquis failure. Remains on heparin drip. Further recommendations to follow. 2. Atrial fibrillation-demonstrated several pauses soon after admission. Would not proceed with temporary or permanent pacemaker at this time realizing his poor clinical status and numerous comorbidities. 3. Increased troponin-at time of admission. Likely a supply demand mismatch 4. Sepsis-from left lower lobe pneumonia 5. Moderate aortic stenosis 6. Pulmonary fibrosis 7. DNR 8. Prognosis-poor
[2017-02-09] MEDS: VANCOMYCIN INJ 1,500 MG in SODIUM CHLORIDE 0.9% 500ML 500 ML IV SCH (11:23)
--- NOTE | 2017-02-09 11:36 | Palliative Care Consultation ---
Consultation Date of Consultation: Feb 09, 2017. Requesting Physician: Dr. Do Attending Physician: Dr. Do Reason for Consultation: Goals of care History of Present Illness This 86 year old gentleman presented to the hospital three days ago with complains of lethargy, and a cough from [facility]. 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 In ED, LLL infiltrate found on CXR, and reports of fever on 02/02. started on IV abx for sepsis and pneumonia, healthcare associated vs. aspiration is unclear. He is on zosyn and vanc. CT scan of head showed "subacute left occipital infarct, moderate chronic small vessel change, no evidence for acute intracranial hemorrhage." MRI was then performed and showed "Bilateral acute/subacute infarcts involving the cerebellar hemispheres, temporal lobes, occipital lobes, parietal lobes, and frontal lobes. The vascular distribution favors an embolic etiology." Patient was on Eliquis for atrial fib, now on heparin gtt. Parkinson' s meds on hold for bradycardia- patient is now more rigid. Given age and tenuous state, palliative care consulted to discuss goals of care. I met with the patient's two daughters/POAs: Shantelle Edouard and Bronwyn Shaun. We had a lengthy discussion about patient's current condition. They feel very conflicted and unsure of what to do at this point. While the patient is very sick, they feel he still has his normal fighting spirit as he is asking for food , has shown signs of improvement with PT/OT/ST, and is still cognitively there. However, they do not want their father to suffer or to be prolonging the inevitable by keeping him in the hospital and receiving all this treatment. They stated that their father would never want a feeding tube or any heroic measures to prolong his life, including CPR or intubation. If at any point the patient would tell them he didn't want to do this any more, they would stop treatment; but at this point he is actually showing some signs of possible improvement. Having said that, they also stated if patient declines despite treatment, they would make him comfort measures only. Their goal is to get him well-enough to go back to [facility], whether it was for rehab or for hospice. They would not want him to come back to the hospital and go through this again. The patient himself is sitting up in bed, was working with speech therapy when I was in the room. He has an oxygen mask on. He offered no complaints of pain or discomfort. He has not opened his eyes for several days. His right arm is with cogwheel rigidity. left arm flaccid, so he is a total care and a feed. He at more than half of his breakfast this morning. He is mostly oriented, recalls what he ate this morning, knows his daughters and answers questions appropriately. However, unable to fully understand situation or offer much conversation about goals of care. Past Medical/Surgical History Medical History: as above Social History Smoking Status: Never Smoker History of Alcohol Use: No Drug Use: none Marital Status: Housing Status: retirement Occupation Status: retired Review of Systems Constitutional: No fever, No chills ENT: No trouble swallowing Cardiac: No chest pain Abdomen: No pain, No nausea, No vomiting Male : No problem reported Neurologic: + see HPI Psychiatric: No anxiety Allergies Coded Allergies: Acetaminophen (Verified Adverse Reaction, Mild, 08/30/15) "BAD FOR MY LIVER" Medications Current Inpatient Medications Medications (Trade) Dose Ordered Sig/Khurram Route Start Time Stop Time Status Last Admin Dose Admin Al Hydrox/Mg Hydrox/Simethicone (Maalox Max Susp) 15 ml Q4H PRN PO 02/05/17 14:00 03/07/17 13:59 Magnesium Hydroxide (Milk Of Magnesia Susp) 30 ml Q12H PRN PO 02/05/17 14:00 03/07/17 13:59 Ondansetron HCl (Zofran Inj) 4 mg Q6H PRN IV 02/05/17 14:00 03/07/17 13:59 Polyethylene (Miralax Powder Packet) 17 gm DAILY PRN PO 02/05/17 14:00 03/07/17 13:59 Alfuzosin HCl (Uroxatral Tab) 10 mg HS PO 02/05/17 21:00 03/07/17 20:59 02/08/17 20:43 10 MG Cholecalciferol (Vitamin D Tab) 1,000 inter.unit QAM PO 02/06/17 09:00 03/08/17 08:59 02/09/17 08:09 1,000 INTER.UNIT Finasteride (Proscar Tab) 5 mg QAM PO 02/06/17 09:00 03/08/17 08:59 02/09/17 08:10 5 MG Midodrine (Proamatine Tab) 7.5 mg TID@0700,1200,1500 PO 02/05/17 15:00 03/07/17 14:59 02/09/17 08:10 7.5 MG Multivitamins/ Minerals (Multivitamin W/ Minerals Tab) 1 tab DAILY PO 02/06/17 09:00 03/08/17 08:59 02/09/17 08:10 1 TAB Senna (Senokot Tab) 8.6 mg QAM PO 02/06/17 09:00 03/08/17 08:59 02/09/17 08:09 8.6 MG Tramadol HCl (Ultram Tab) 25 mg Q12 PRN PO 02/05/17 14:15 03/07/17 14:14 Pantoprazole Sodium (Protonix Tab) 40 mg QAM PO 02/06/17 09:00 03/08/17 08:59 02/09/17 08:10 40 MG Miscellaneous Information (Order Awaiting Action) 1 ea QS N/A 02/05/17 16:00 03/07/17 15:59 Piperacillin Sod/ Tazobactam Sod (Consult) 1 ea UD PRN N/A 02/05/17 14:30 03/07/17 14:29 Albuterol/ Ipratropium (Duoneb) 3 ml QIDR INH 02/05/17 16:00 03/07/17 15:59 02/09/17 07:17 3 ML Albuterol/ Ipratropium (Duoneb) 3 ml Q2H PRN INH 02/05/17 15:15 03/07/17 15:14 Gadobutrol (Gadavist) 8.5 mmol UD PRN IV 02/05/17 15:15 02/09/17 15:14 Apixaban (Eliquis Tab) 5 mg BID PO 02/05/17 21:00 03/07/17 20:59 Future Hold Piperacillin Sod/ Tazobactam Sod 3.375 gm/Dextrose 115 ml @ 28.75 mls/ hr Q8H IV 02/05/17 22:00 02/12/17 13:59 02/09/17 05:48 28.75 MLS/HR Heparin Sodium/ Dextrose 500 ml @ 19 mls/hr Q24H PRN IV 02/06/17 17:00 03/08/17 16:59 02/08/17 20:42 19 MLS/HR Vancomycin HCl 1500 mg/Sodium Chloride 530 ml @ 200 mls/hr Q18H IV 02/08/17 18:00 02/15/17 17:59 02/08/17 18:32 200 MLS/HR Vancomycin HCl (Consult) 1 ea UD PRN N/A 02/08/17 18:00 03/10/17 17:59 Potassium Chloride 10 meq/ Prmx 100 ml @ 100 mls/hr Q1H IV 02/09/17 09:00 02/09/17 12:59 02/09/17 09:07 100 MLS/HR Aspirin (Ecotrin Tab) 81 mg QAM PO 02/10/17 09:00 03/12/17 08:59 Physical Exam Date Time Temp Pulse Resp B/P (MAP) Pulse Ox O2 Delivery O2 Flow Rate FiO2 02/09/17 08:00 95 Mask 02/09/17 08:00 95 Oxymask 02/09/17 07:28 36.3 90 22 95/59 (71) 91 Mask 6.0 02/09/17 07:18 79 36 95 Mask 6.0 02/09/17 04:00 Oxymask 6.0 02/09/17 04:00 93 42 99/62 (74) 94 Oxymask 6.0 02/09/17 00:00 Oxymask 6.0 02/08/17 22:57 37.2 84 20 123/73 (90) 92 Oxymask 6.0 02/08/17 20:13 79 44 92 Mask 5.0 02/08/17 20:00 Nasal Cannula 7.0 02/08/17 19:56 36.7 79 20 119/75 (90) 93 Oxymask 6.0 02/08/17 16:00 Nasal Cannula 6.5 02/08/17 15:40 73 24 94 Nasal Cannula 6.0 02/08/17 15:11 67 115/67 (83) 02/08/17 12:00 Nasal Cannula 6.5 93 02/08/17 11:28 36.4 75 18 113/74 (87) 94 Oxymask 8.0 02/08/17 11:20 74 34 96 Mask 7.0 General Appearance: no apparent distress ENT: hearing grossly normal Neck: supple, no JVD Respiratory: no respiratory distress, no accessory muscle use Cardiovascular: + irregularly irregular (on telemetry) Abdomen: non tender, soft Neurologic/Psychiatric: alert, oriented x 3 (with some confusion/forgetfulness) Laboratory Results Last 24 Hours Test 02/09/17 05:35 White Blood Count 14.45 K/uL Red Blood Count 3.55 M/uL Hemoglobin 11.0 g/dL Hematocrit 34.1 % Mean Corpuscular Volume 96.1 fL Mean Corpuscular Hemoglobin 31.0 pg Mean Corpuscular Hemoglobin Concent 32.3 g/dl RDW Standard Deviation 48.0 fL RDW Coefficient of Variation 13.7 % Platelet Count 136 K/uL Mean Platelet Volume 9.3 fL Activated Partial Thromboplast Time 49.0 SECONDS Partial Thromboplastin Ratio 1.9 Assessment & Plan Palliative Performance Scale: 30 % Problem list: Altered mental status in the setting of metabolic encephalopathy Ambulatory dysfunction- advanced Parkinson's now with acute CVA Pneumonia- presumed HCAP Sepsis CVA- bilateral subacute infarcts Afib with bradycardia- Parkinson's meds were on hold, will be restarted today Parkinson's disease with dementia Diastolic CHF- stable Goals of care (Z51.5) Palliative care recommendations: discussed with two daughters- Bronwyn and Shantelle, and Dr. Do. -Confirmed that patient is DNR/DNI -No heroic measures to prolong life, including feeding tube -Goal is for patient to get back to [facility] either for continued rehab, or on hospice if patient shows no improvement. -Once patient back to [facility], they would not want him to be hospitalized again and would want him to be comfortable-- so even if he does return for rehab, I expect an eventual transition to hospice. -For now, continue current care with IV abx. Heparin gtt will be converted back to his PO Eliquis. -Daughters do want to focus on the patient's comfort and quality of life. If they do not see improvement, or if things worsen, they will likely make the decision to transition patient to comfort measures only. -Restart Parkinson's medications despite the risk of bradycardia. Thank you kindly for this consult. I will follow as needed.
[2017-02-09] MEDS: CARBIDOPA/LEVODOPA 25/100MG TAB PO SCH ×3 (12:57→21:02)
[2017-02-09] MEDS ORDERED: FUROSEMIDE INJ 20 MG in SYRINGE 0 ML IV ONE (16:00)
[2017-02-09 16:08] LABS: CALCIUM 7.5 mg/dl (8.5-10.1); CREATININE 0.79 mg/dl (0.60-1.40); POTASSIUM 3.7 mmol/L (3.5-5.1)
--- NOTE | 2017-02-09 16:10 | DIAGNOSTIC IMAGING REPORT ---
CHEST ONE VIEW PORTABLE CLINICAL HISTORY: Sepsis COMPARISON STUDY: 02/05/2017 FINDINGS: The heart is enlarged. There are progressive bilateral pulmonary airspace opacities. There are small bilateral pleural effusions.[ IMPRESSION: Progressive bilateral pulmonary airspace opacities. Small bilateral pleural effusions. Diagnostic considerations include a multifocal pneumonia versus areas of asymmetric pulmonary edema. Clinical and radiographic follow-up is recommended Electronically signed by: Chidi Jacobsen M.D. 02/09/2017 4:09 PM Dictated Date/Time: 02/09/2017 4:08 PM
[2017-02-09 16:22] LABS: ARTERIAL BLD GAS O2 SATURATION 95.3 % (90-95); ARTERIAL BLOOD GAS BASE EXCESS -1.1 mEq/L (-9-1.8); ARTERIAL BLOOD GAS HCO3 22 mmol/L (19-24); ARTERIAL BLOOD GAS PO2 75 mm/Hg (80-95); ARTERIAL BLOOD GAS pH 7.47 (7.35-7.45)
[2017-02-09 16:23] LABS: ALLEN TEST POS (POS); O2 ADMINISTRATION 6 L
[2017-02-09] MEDS ORDERED: NURSING VERBAL MED ORDER ONE (16:45)
[2017-02-09] MEDS: POTASSIUM CHLR 10MEQ / WTR IV SCH ×2 (16:50→17:55)
[2017-02-09] MEDS ORDERED: STOP HEPARIN DRIP ORDER ONE (21:00)
[2017-02-09] MEDS: ALFUZosin TAB 10 MG TAB PO SCH (21:03)
[2017-02-09] MEDS: APIXABAN 2.5 MG TAB PO SCH (21:22)
[2017-02-10] VITALS (18 sets, daily range): BP systolic 108–157; BP diastolic 64–95; PULSE 62–97; TEMP 36.4–37; O2SAT 90–99
--- NOTE | 2017-02-10 00:19 | Hospitalist Progress Note ---
Hospitalist Progress Note Date of Service Feb 09, 2017. Subjective Pt evaluation today including: conversation w/ patient, conversation w/ family , chart review (outpatient and NH records, called Debbie Story RN to discuss medication records), lab review, conversation w/ employment consultant (Neuro, Cardiology) , review of inpatient medication list Voiding: arteaga catheter in place Pt more alert today, opening eyes spontaneously and to commands but it seems difficult for him. He is waking up and eating and answering questions appropriately at times. But having significant respiratory distress through the night and into today with tachypnea, worsening hypoxia. Given IV lasix and placed on BiPAP, had significant improvement rapidly. He continues to be quite lethargic most of the day. Family met with Palliative Care FINANCE DIRECTOR and had goals of care discussion. Family requesting Sinemet be restarted due to appearance of discomfort with arms and hands becoming tight and flexed/stiff. Review of home med rec from Debbie shows Eliquis was being dosed once daily at bedtime. It appears that his dosing somehow was changed from bid dosing to once at bedtime in 09/2015 after discharge from the hospital after a fall with neck injury. It is unclear if this was intentional or not. This was discussed with the pt's daughters at the bedside, pt was asleep during discussion. Constitutional: No fever Additional Comments: difficult to get ROS due to altered MS Objective Vital Signs Date Time Temp Pulse Resp B/P (MAP) Pulse Ox O2 Delivery O2 Flow Rate FiO2 02/09/17 15:21 93 Oxymask 02/09/17 15:13 36.8 80 26 120/72 (88) 93 Mask 6.0 02/09/17 12:00 93 Oxymask 02/09/17 11:44 37.2 99 24 103/72 (82) 94 Mask 6.0 02/09/17 11:15 70 26 92 Mask 6.0 02/09/17 08:00 95 Mask 02/09/17 08:00 95 Oxymask 02/09/17 07:28 36.3 90 22 95/59 (71) 91 Mask 6.0 02/09/17 07:18 79 36 95 Mask 6.0 02/09/17 04:00 Oxymask 6.0 02/09/17 04:00 93 42 99/62 (74) 94 Oxymask 6.0 02/09/17 00:00 Oxymask 6.0 02/08/17 22:57 37.2 84 20 123/73 (90) 92 Oxymask 6.0 02/08/17 20:13 79 44 92 Mask 5.0 02/08/17 20:00 Nasal Cannula 7.0 02/08/17 19:56 36.7 79 20 119/75 (90) 93 Oxymask 6.0 02/08/17 16:00 Nasal Cannula 6.5 Physical Exam General Appearance: + moderate distress Eyes: + pertinent finding (injected sclerae OU, but did open eyes on command today for the first time in 4 days) ENT: hearing grossly normal Neck: trachea midline Respiratory/Chest: + accessory muscle use, + crackles (diffusely along with diffuse wheeze) Cardiovascular: + irregularly irregular (with normal rate), + pertinent finding (difficult to auscultate murmur over loud adventitious lung sounds) Abdomen: normal bowel sounds, non tender, soft, no organomegaly Extremities: non-tender, normal inspection, no calf tenderness, + swelling ( trace pitting edema legs bilat), + pertinent finding (LUE edema much improved) Neurologic/Psychiatric: + pertinent finding (lethargic but does respond to some questions with short phrases, keeps eyes closed, sitting/lying in bed) Skin: normal color, warm/dry, no rash Laboratory Results Last 24 Hours Test 02/09/17 05:35 02/09/17 15:24 02/09/17 15:43 White Blood Count 14.45 K/uL Red Blood Count 3.55 M/uL Hemoglobin 11.0 g/dL Hematocrit 34.1 % Mean Corpuscular Volume 96.1 fL Mean Corpuscular Hemoglobin 31.0 pg Mean Corpuscular Hemoglobin Concent 32.3 g/dl RDW Standard Deviation 48.0 fL RDW Coefficient of Variation 13.7 % Platelet Count 136 K/uL Mean Platelet Volume 9.3 fL Activated Partial Thromboplast Time 49.0 SECONDS Partial Thromboplastin Ratio 1.9 Assessment and Plan 86 y/o male with a history of chronic diastolic CHF, Parkinson's disease w/ mild dementia, h/o falls, chronic atrial fibrillation on Eliquis, HTN, with known orthostasis/autonomic insufficiency, cirrhosis with evidence of portal HTN , history of right renal mass, moderate aortic stenosis, suspected pulmonary fibrosis, and BPH who presented to the ED on 02/05 with altered mental status. He had a fever and cough for one week prior and was treated with IM Rocephin x1 followed by po Levaquin. He was lying in bed quite lethargic for 2 days prior as per daughter ad the presented to the ER. Head CT shows subacute L occipital infarct, no hemorrhage. CXR shows diffuse parenchymal fibrosis with a superimposed infiltrate in left base. LUE Doppler ultrasound negative for DVT. Pt febrile, hypotensive, tachypneic, and hypoxic in ED. WBC 13.88. POC lactic acid 2.14. Troponin 2.21. BNP 3606. Given azithromycin, vancomycin and cefepime in ED. -Repeat lactic acid improved with IVFs and abx to 1.7 MRI brain shortly after admission shows innumerable CVAs in embolic pattern in all vascular distributions Sepsis w/ acute metabolic encephalopathy, HCAP, acute hypoxemic respiratory failure-->significantly worsening respiratory status today. WBC count trended downward, afebrile. Likely secondary to significant pulm edema from acute on chronic diastolic CHF -continue telemetry -continue Zosyn and vancomycin IV (despite neg MRSA swab given severe condition ) for total 7 days -Blood cx NG, Ur cx no growth -held IVFs for fluid overload starting 02/08, gave lasix 20mg IV x 1 on 02/08, again on 02/09 with good response ABG 7.47/31/75 BiPAP placed for severe pulm edema and had improvement, wean off BiPAP as able to -continue lasix diuresis again in the AM with lasix 20mg IV qAM, goal diuresis - 1-2L per day -follow renal function and lytes -DuoNebs QIDR and q2h prn SOB/wheezing Hypernatremia--Na+ 148 on admission, now improving at 146 but then became volume overloaded -stopped IVFs, giving lasix -follow PRP 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 LUE paresis -MRI brain shows bilateral subacute infarcts. Vascular distribution favors embolic etiology. Initially suspected possible failure of Eliquis, however it was discovered that he has only been on Eliquis 5mg qhs for the last 16 months as an outpt. So can not consider this a failure of Eliquis. Discussed with family. No vegetation on valves on ECHO, BCXs no growth so far, most likely not septic emboli. A-fib with emboli as most likely cause. mental status waxes and wanes--> Speech cleared for pureed diet with nectar thick liquids, is eating at times and doing ok with it -poor prognosis but seems to be having some recovery -repeat head CT without hemorrhagic conversion on 02/06 and 02/07, and 02/08. Discussed case with Neuro and Cardiology--> placed on a heparin gtt and now taking po so will switch back to Eliquis--> discussed risks vs benefits with daughter but with ongoing A-fib and obvious embolic CVA, AC is necessary -if deteriorating status, repeat head CT to check for hemorrhage -consider comfort measures if not improving with treatment of PNA/sepsis and with time -PT/OT/ST evals -Neuro checks -cont ASA daily -Palliative Care consult appreciated Elevated troponin-likely secondary to demand ischemia in setting of sepsis and CVA -Trop peaked on admission at 2.2, then trended downward -appreciate Cardiology consult- no further intervention or eval -EKG ok Atrial fibrillation, bradycardia, 5.5 second pause on telemetry x 2--could be secondary to CVA, vs med SEs from Antiparkinson drugs? No further bradycardia or pauses on tele last 24 hrs -was holding Sinemet, Exelon--> now restart Sinemet due to worsening PD symptoms -follow on tele -dc heparin gtt and start Elqiuis 5mg po bid now that is taking po Acute on chronic diastolic CHF, Severe , mild AI, Pleural effusions CXR 02/09 with significant pulm edema with resp distress, resp failure--> diuresed with Lasix IV, placed BiPAP--> improving -strict I/Os, daily weights -continue lasix 20mg IV qAM and increase as needed ECHO: * Compared with 08/30/15 study, LVH increased and aortic stenosis is more severe , mitral and tricuspid regurgitation less apparent than before. * Left ventricular systolic function is normal. * Ejection Fraction = 60-65%. * The left ventricular wall motion is normal. * There is moderate concentric left ventricular hypertrophy. * Moderate to severe valvular aortic stenosis. * Mild aortic regurgitation. * Moderate pleural effusion suggested. * Injection of contrast documented no interatrial shunt. BPH-no issues -restarted alfuzosin 10 mg PO qhs and finasteride 5 mg PO qhs now that is norma po -continue Arteaga now to prevent outlet obstruction and while bed bound Parkinson's disease w/dementia-developing stiffness and rigidity restart Sinemet 25/100 2 tabs PO QID --continue to hold Exelon 13.3 mg patch TD qd Orthostatic hypotension-no issues currently -restart Midodrine 7.5 mg PO TID LUE edema-unclear etiology-Doppler LUE negative x 2 serially--> improving with diuresis DVT prophylaxis -heparin and now Eliquis -WENDI cortez and SCDs Code Status -Level V, DO NOT RESUSCITATE Daughter reports pt has made it clear that he would not want artificial feeding tube or life support, ok with IV abx
[2017-02-10] MEDS ORDERED: MoRPHine SULFATE 2 MG/ML CARP IV STA (01:28)
[2017-02-10] MEDS ORDERED: NURSING VERBAL MED ORDER ONE (01:30)
[2017-02-10] MEDS: VANCOMYCIN INJ 1,500 MG in SODIUM CHLORIDE 0.9% 500ML 500 ML IV SCH (05:52)
[2017-02-10] MEDS: PIPERACILL/TAZOBAC IV 3.375 GM in DEXTROSE 5% 100ML 100 ML IV SCH ×3 (05:53→21:46)
[2017-02-10 06:17] LABS: BASO % 0.1 %; BASO ABS # 0.02 K/uL (0-0.2); COMPLETE YES; EOS % 1.8 %; HEMATOCRIT 33.8 % (42-52); IG% 1.2 %; LYMPH % 3.4 %; LYMPH ABS # 0.52 K/uL (1.2-3.4); MEAN CELL VOLUME 97.1 fL (80-100); MEAN CORPUSCULAR HEMOGLOBIN 31.9 pg (25-34); MEAN CORPUSCULAR HGB CONC 32.8 g/dl (32-36); MEAN PLATELET VOLUME 9.3 fL (7.4-10.4); MONO % 4.2 %; NEUT % 89.3 %; PLATELET COUNT 144 K/uL (130-400); RED BLOOD COUNT 3.48 M/uL (4.7-6.1); WHITE BLOOD COUNT 15.15 K/uL (4.8-10.8)
[2017-02-10 06:45] LABS: ALT/SGPT < 6 U/L (12-78); AST/SGOT 28 U/L (15-37); BLOOD UREA NITROGEN 21 mg/dl (7-18); BUN/CREATININE RATIO 30.4 (10-20); CALCIUM 7.6 mg/dl (8.5-10.1); CARBON DIOXIDE 25 mmol/L (21-32); CHLORIDE 114 mmol/L (98-107); CREATININE 0.68 mg/dl (0.60-1.40); GLUCOSE 82 mg/dl (70-99); PARTIAL THROMBOPLASTIN RATIO 1.4; POTASSIUM 3.7 mmol/L (3.5-5.1); SODIUM 146 mmol/L (136-145)
[2017-02-10 06:48] LABS: ALKALINE PHOSPHATASE 53 U/L (45-117)
[2017-02-10] MEDS: ALBUT/IPRATROP 3MG/0.5MG NEB 3 ML VIAL INH SCH ×4 (07:10→19:23)
[2017-02-10] MEDS: ASPIRIN 81 MG ECTAB PO SCH (07:40)
[2017-02-10] MEDS: FUROSEMIDE INJ 20 MG in SYRINGE 0 ML IV SCH (07:40)
[2017-02-10] MEDS: CHOLECALCIFEROL 1000 INTER.UNIT TAB PO SCH (07:40)
[2017-02-10] MEDS: APIXABAN 2.5 MG TAB PO SCH ×2 (07:40→20:24)
[2017-02-10] MEDS: CEROVITE ADV FORMULA TAB PO SCH (07:40)
[2017-02-10] MEDS: PANTOprazole SOD 40 MG TAB PO SCH (07:41)
[2017-02-10] MEDS: SENNA 8.6 MG TAB PO SCH (07:41)
[2017-02-10] MEDS: CARBIDOPA/LEVODOPA 25/100MG TAB PO SCH ×4 (07:41→20:24)
[2017-02-10] MEDS: FINASTERIDE 5 MG TAB PO SCH (07:41)
[2017-02-10] MEDS: MIDODRINE 2.5 MG TAB PO SCH ×3 (07:42→15:03)
[2017-02-10] MEDS ORDERED: SODIUM CHLORIDE 0.65% NA SOLN 45 ML (OCEAN) ONE (09:07)
[2017-02-10] MEDS: ALFUZosin TAB 10 MG TAB PO SCH (20:25)
[2017-02-10] MEDS ORDERED: VANCOMYCIN TROUGH SCH (23:30)
[2017-02-11] VITALS (12 sets, daily range): BP systolic 96–131; BP diastolic 56–83; PULSE 64–94; TEMP 36.5–36.9; O2SAT 90–100
[2017-02-11] MEDS: VANCOMYCIN INJ 1,500 MG in SODIUM CHLORIDE 0.9% 500ML 500 ML IV SCH ×2 (00:07→13:21)
--- NOTE | 2017-02-11 00:08 | Progress Note ---
Subjective Date of Service: Feb 10, 2017. Subjective Pt evaluation today including: physical exam, chart review, lab review, review of studies Pain: no pain reported Voiding: arteaga catheter in place Pt more alert today, opening eyes spontaneously and to commands but it seems difficult for him. He is waking up and eating and answering questions appropriately at times. But having significant respiratory distress through the night and into today with tachypnea, worsening hypoxia. Given IV lasix and placed on BiPAP, had significant improvement rapidly. He continues to be quite lethargic most of the day. Problem List Medical Problems: (1) Contusion of left hand Status: Acute (2) Dehydration Status: Acute (3) Elevated bilirubin Status: Acute (4) Elevated troponin Status: Acute (5) Fall Status: Acute (6) Generalized weakness Status: Acute (7) Left upper extremity swelling Status: Acute (8) New onset atrial fibrillation Status: Acute (9) Pneumonia Status: Acute Review of Systems difficult to get ROS due to altered MS Medications Medications (Trade) Dose Ordered Sig/Khurram Route Start Time Stop Time Status Last Admin Dose Admin Aspirin (Ecotrin Tab) 81 mg QAM PO 02/10/17 09:00 03/12/17 08:59 02/10/17 07:40 81 MG Furosemide 20 mg/ Syringe 2 ml @ 4 mls/min QAM IV 02/10/17 09:00 03/12/17 08:59 02/10/17 07:40 4 MLS/MIN Morphine Sulfate (MoRPHine SULFATE INJ) 1 mg ONE STAT IV 02/10/17 01:28 02/10/17 01:29 DC 02/10/17 01:42 1 MG Sodium Chloride ([place] Nasal Dobson) 225 sprays STK-MED ONCE .ROUTE 02/10/17 09:07 02/10/17 09:08 DC 02/10/17 09:15 225 SPRAYS Objective Vital Signs Date Time Temp Pulse Resp B/P (MAP) Pulse Ox O2 Delivery O2 Flow Rate FiO2 02/10/17 19:51 36.5 95 18 129/76 (93) 93 4.0 02/10/17 19:23 69 24 92 Mask 4.0 02/10/17 16:00 Oxymask 6.0 02/10/17 15:21 36.5 62 22 108/66 (80) 99 Mask 4.0 02/10/17 15:07 63 20 99 Mask 4.0 02/10/17 14:04 118/70 (86) 02/10/17 12:00 Oxymask 6.0 02/10/17 11:20 36.4 86 18 155/72 (99) 94 Nasal Cannula 2.0 02/10/17 11:19 36.7 66 18 110/64 (79) 97 Mask 7.0 02/10/17 11:09 66 24 97 Mask 7.0 02/10/17 08:00 Oxymask 6.0 02/10/17 07:25 36.7 79 26 138/95 (109) 96 Mask 8.0 02/10/17 07:11 68 91 30 02/10/17 07:10 68 26 91 BiPAP/CPAP 30 02/10/17 05:22 66 98 40 02/10/17 04:00 96 BiPAP 30 02/10/17 03:47 36.9 70 24 122/66 (84) 92 BiPAP 02/10/17 01:12 86 90 30 02/10/17 00:00 92 BiPAP 30 02/10/17 00:00 92 BiPAP 02/09/17 23:36 36.5 82 20 109/66 (80) 95 BiPAP 02/09/17 23:00 79 95 30 Physical Exam Comments: General Appearance: + moderate distress Eyes: + pertinent finding (injected sclerae OU, but did open eyes on command today for the first time in 4 days) ENT: hearing grossly normal Neck: trachea midline Respiratory/Chest: + accessory muscle use, + crackles (diffusely along with diffuse wheeze) Cardiovascular: + irregularly irregular (with normal rate), + pertinent finding (difficult to auscultate murmur over loud adventitious lung sounds) Abdomen: normal bowel sounds, non tender, soft, no organomegaly Extremities: non-tender, normal inspection, no calf tenderness, + swelling ( trace pitting edema legs bilat), + pertinent finding (LUE edema much improved) Neurologic/Psychiatric: + pertinent finding (lethargic but does respond to some questions with short phrases, keeps eyes closed, sitting/lying in bed) Skin: normal color, warm/dry, no katiuska Laboratory Results Last 24 Hours Test 02/10/17 05:56 White Blood Count 15.15 K/uL Red Blood Count 3.48 M/uL Hemoglobin 11.1 g/dL Hematocrit 33.8 % Mean Corpuscular Volume 97.1 fL Mean Corpuscular Hemoglobin 31.9 pg Mean Corpuscular Hemoglobin Concent 32.8 g/dl Platelet Count 144 K/uL Mean Platelet Volume 9.3 fL Neutrophils (%) (Auto) 89.3 % Lymphocytes (%) (Auto) 3.4 % Monocytes (%) (Auto) 4.2 % Eosinophils (%) (Auto) 1.8 % Basophils (%) (Auto) 0.1 % Neutrophils # (Auto) 13.52 K/uL Lymphocytes # (Auto) 0.52 K/uL Monocytes # (Auto) 0.64 K/uL Eosinophils # (Auto) 0.27 K/uL Basophils # (Auto) 0.02 K/uL RDW Standard Deviation 49.0 fL RDW Coefficient of Variation 13.8 % Immature Granulocyte % (Auto) 1.2 % Immature Granulocyte # (Auto) 0.18 K/uL Activated Partial Thromboplast Time 36.1 SECONDS Partial Thromboplastin Ratio 1.4 Sodium Level 146 mmol/L Potassium Level 3.7 mmol/L Chloride Level 114 mmol/L Carbon Dioxide Level 25 mmol/L Anion Gap 7.0 mmol/L Blood Urea Nitrogen 21 mg/dl Creatinine 0.68 mg/dl Est Creatinine Clear Calc Drug Dose 84.9 ml/min Estimated GFR () 100.9 Estimated GFR (Non- 87.1 BUN/Creatinine Ratio 30.4 Random Glucose 82 mg/dl Calcium Level 7.6 mg/dl Magnesium Level 2.0 mg/dl Total Bilirubin 1.7 mg/dl Direct Bilirubin 0.8 mg/dl Aspartate Amino Transf (AST/SGOT) 28 U/L Alanine Aminotransferase (ALT/SGPT) < 6 U/L Alkaline Phosphatase 53 U/L Total Protein 5.1 gm/dl Albumin 1.8 gm/dl Assessment and Plan 86 y/o male with a history of chronic diastolic CHF, Parkinson's disease w/ mild dementia, h/o falls, chronic atrial fibrillation on Eliquis, HTN, with known orthostasis/autonomic insufficiency, cirrhosis with evidence of portal HTN , history of right renal mass, moderate aortic stenosis, suspected pulmonary fibrosis, and BPH who presented to the ED on 02/05 with altered mental status. He had a fever and cough for one week prior and was treated with IM Rocephin x1 followed by po Levaquin. He was lying in bed quite lethargic for 2 days prior as per daughter ad the presented to the ER. Head CT shows subacute L occipital infarct, no hemorrhage. CXR shows diffuse parenchymal fibrosis with a superimposed infiltrate in left base. LUE Doppler ultrasound negative for DVT. Pt febrile, hypotensive, tachypneic, and hypoxic in ED. WBC 13.88. POC lactic acid 2.14. Troponin 2.21. BNP 3606. Given azithromycin, vancomycin and cefepime in ED. -Repeat lactic acid improved with IVFs and abx to 1.7 MRI brain shortly after admission shows innumerable CVAs in embolic pattern in all vascular distributions Sepsis w/ acute metabolic encephalopathy, HCAP, acute hypoxemic respiratory failure-->significantly worsening respiratory status today. WBC count trended downward, afebrile. Likely secondary to significant pulm edema from acute on chronic diastolic CHF -continue telemetry -continue Zosyn and vancomycin IV (despite neg MRSA swab given severe condition ) for total 7 days -Blood cx NG, Ur cx no growth -held IVFs for fluid overload starting 02/08, gave lasix 20mg IV x 1 on 02/08, again on 02/09 with good response ABG 7.47/31/75 BiPAP placed for severe pulm edema and had improvement, wean off BiPAP as able to -continue lasix diuresis again in the AM with lasix 20mg IV qAM, goal diuresis - 1-2L per day -follow renal function and lytes -DuoNebs QIDR and q2h prn SOB/wheezing Hypernatremia--Na+ 148 on admission, now improving at 146 but then became volume overloaded -stopped IVFs, giving lasix -follow PRP 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 LUE paresis -MRI brain shows bilateral subacute infarcts. Vascular distribution favors embolic etiology. Initially suspected possible failure of Eliquis, however it was discovered that he has only been on Eliquis 5mg qhs for the last 16 months as an outpt. So can not consider this a failure of Eliquis. Discussed with family. No vegetation on valves on ECHO, BCXs no growth so far, most likely not septic emboli. A-fib with emboli as most likely cause. mental status waxes and wanes--> Speech cleared for pureed diet with nectar thick liquids, is eating at times and doing ok with it -poor prognosis but seems to be having some recovery -repeat head CT without hemorrhagic conversion on 02/06 and 02/07, and 02/08. Discussed case with Neuro and Cardiology--> placed on a heparin gtt and now taking po so will switch back to Eliquis--> discussed risks vs benefits with daughter but with ongoing A-fib and obvious embolic CVA, AC is necessary -if deteriorating status, repeat head CT to check for hemorrhage -consider comfort measures if not improving with treatment of PNA/sepsis and with time -PT/OT/ST evals -Neuro checks -cont ASA daily -Palliative Care consult appreciated Elevated troponin-likely secondary to demand ischemia in setting of sepsis and CVA -Trop peaked on admission at 2.2, then trended downward -appreciate Cardiology consult- no further intervention or eval -EKG ok Atrial fibrillation, bradycardia, 5.5 second pause on telemetry x 2--could be secondary to CVA, vs med SEs from Antiparkinson drugs? No further bradycardia or pauses on tele last 24 hrs -was holding Sinemet, Exelon--> now restart Sinemet due to worsening PD symptoms -follow on tele -dc heparin gtt and start Elqiuis 5mg po bid now that is taking po Acute on chronic diastolic CHF, Severe , mild AI, Pleural effusions CXR 02/09 with significant pulm edema with resp distress, resp failure--> diuresed with Lasix IV, placed BiPAP--> improving -strict I/Os, daily weights -continue lasix 20mg IV qAM and increase as needed ECHO: * Compared with 08/30/15 study, LVH increased and aortic stenosis is more severe , mitral and tricuspid regurgitation less apparent than before. * Left ventricular systolic function is normal. * Ejection Fraction = 60-65%. * The left ventricular wall motion is normal. * There is moderate concentric left ventricular hypertrophy. * Moderate to severe valvular aortic stenosis. * Mild aortic regurgitation. * Moderate pleural effusion suggested. * Injection of contrast documented no interatrial shunt. BPH-no issues -restarted alfuzosin 10 mg PO qhs and finasteride 5 mg PO qhs now that is norma po -continue Arteaga now to prevent outlet obstruction and while bed bound Parkinson's disease w/dementia-developing stiffness and rigidity restart Sinemet 25/100 2 tabs PO QID --continue to hold Exelon 13.3 mg patch TD qd Orthostatic hypotension-no issues currently -restart Midodrine 7.5 mg PO TID LUE edema-unclear etiology-Doppler LUE negative x 2 serially--> improving with diuresis DVT prophylaxis -heparin and now Eliquis -WENDI cortez and SCDs Code Status -Level V, DO NOT RESUSCITATE Daughter reports pt has made it clear that he would not want artificial feeding tube or life support, ok with IV abx Continued [facility] stay due to: home environment unsafe for pt Discharge planning: detention facility
[2017-02-11] MEDS: PIPERACILL/TAZOBAC IV 3.375 GM in DEXTROSE 5% 100ML 100 ML IV SCH ×3 (05:46→21:31)
[2017-02-11 07:00] LABS: HEMATOCRIT 33.8 % (42-52); MEAN CELL VOLUME 97.7 fL (80-100); MEAN CORPUSCULAR HEMOGLOBIN 32.7 pg (25-34); MEAN CORPUSCULAR HGB CONC 33.4 g/dl (32-36); MEAN PLATELET VOLUME 9.2 fL (7.4-10.4); PLATELET COUNT 161 K/uL (130-400); RED BLOOD COUNT 3.46 M/uL (4.7-6.1); WHITE BLOOD COUNT 11.15 K/uL (4.8-10.8)
[2017-02-11] MEDS: ALBUT/IPRATROP 3MG/0.5MG NEB 3 ML VIAL INH SCH ×4 (07:13→18:57)
[2017-02-11 07:21] LABS: PARTIAL THROMBOPLASTIN RATIO 1.4
[2017-02-11] MEDS: FUROSEMIDE INJ 20 MG in SYRINGE 0 ML IV SCH (08:00)
[2017-02-11] MEDS: CARBIDOPA/LEVODOPA 25/100MG TAB PO SCH ×4 (08:01→20:53)
[2017-02-11] MEDS: FINASTERIDE 5 MG TAB PO SCH (08:02)
[2017-02-11] MEDS: SENNA 8.6 MG TAB PO SCH (08:03)
[2017-02-11] MEDS: PANTOprazole SOD 40 MG TAB PO SCH (08:03)
[2017-02-11] MEDS: MIDODRINE 2.5 MG TAB PO SCH ×3 (08:03→14:34)
[2017-02-11] MEDS: APIXABAN 2.5 MG TAB PO SCH ×2 (08:03→20:54)
[2017-02-11] MEDS: CEROVITE ADV FORMULA TAB PO SCH (08:03)
[2017-02-11] MEDS: ASPIRIN 81 MG ECTAB PO SCH (08:03)
[2017-02-11] MEDS: CHOLECALCIFEROL 1000 INTER.UNIT TAB PO SCH (08:03)
[2017-02-11] MEDS ORDERED: FUROSEMIDE 40 MG/4 ML VIAL ONE (10:59)
[2017-02-11] MEDS ORDERED: FUROSEMIDE INJ 20 MG in SYRINGE 0 ML IV SCH (11:15)
--- NOTE | 2017-02-11 11:57 | DIAGNOSTIC IMAGING REPORT ---
SINGLE VIEW CHEST CLINICAL HISTORY: Follow-up abnormal chest x-ray. FINDINGS: An AP, portable, upright chest radiograph is compared to study dated 02/09/2017 and correlated with chest CT dated 03/12/2007. The examination is significantly degraded by portable technique and patient rotation. The heart is enlarged and there is atherosclerotic calcification of the thoracic aorta. There are diffuse bilateral airspace opacities, most confluence in the upper lobes. There are layering pleural effusions. No pneumothorax is seen. The skeletal structures are osteopenic. Degenerative change and compression deformities are noted in the imaged thoracolumbar spine. IMPRESSION: 1. Cardiomegaly. 2. There are diffuse bilateral airspace opacities, not significantly changed from yesterday. Differential considerations remain multifocal pneumonia, pulmonary edema, pulmonary hemorrhage, and/or ARDS. Clinical correlation will be essential. 3. Layering pleural effusions. Electronically signed by: Manpreet Potter M.D. 02/11/2017 11:56 AM Dictated Date/Time: 02/11/2017 11:54 AM
[2017-02-11 11:58] LABS: ALB/GLOB RATIO 0.5 (0.9-2); ALKALINE PHOSPHATASE 52 U/L (45-117); ALT/SGPT < 6 U/L (12-78); AST/SGOT 22 U/L (15-37); BLOOD UREA NITROGEN 20 mg/dl (7-18); BUN/CREATININE RATIO 23.7 (10-20); CALCIUM 7.8 mg/dl (8.5-10.1); CARBON DIOXIDE 26 mmol/L (21-32); CHLORIDE 112 mmol/L (98-107); CREATININE 0.84 mg/dl (0.60-1.40); GLUCOSE 94 mg/dl (70-99); POTASSIUM 3.2 mmol/L (3.5-5.1); SODIUM 146 mmol/L (136-145)
--- NOTE | 2017-02-11 13:02 | Progress Note ---
Subjective Date of Service: Feb 11, 2017. Subjective Pt evaluation today including: conversation w/ patient, conversation w/ family , physical exam, chart review, lab review, review of studies, review of inpatient medication list Pain: no pain reported by patient PO Intake: fair Voiding: arteaga catheter in place Pt is seen and examined by me. I was paged by pt nurse for tachypnea. Pt resp rate went into high 30's. Pt rest of vital sign was stable. Pt was responding, not in acute distress, daughter and friends near the bedside. Pt resp rate settled after few mins. Pt was awake, alert Problem List Medical Problems: (1) Contusion of left hand Status: Acute (2) Dehydration Status: Acute (3) Elevated bilirubin Status: Acute (4) Elevated troponin Status: Acute (5) Fall Status: Acute (6) Generalized weakness Status: Acute (7) Left upper extremity swelling Status: Acute (8) New onset atrial fibrillation Status: Acute (9) Pneumonia Status: Acute Review of Systems Constitutional: No fever, No sweats, No weight loss Respiratory: + cough, + wheezing, + shortness of breath, No sputum Cardiac: + edema, No chest pain, No palpitations Abdomen: + constipation, No pain, No nausea, No vomiting, No diarrhea Neurologic: + memory loss Skin: No rash Medications Medications (Trade) Dose Ordered Sig/Khurram Route Start Time Stop Time Status Last Admin Dose Admin Furosemide (Lasix Inj) 40 mg STK-MED ONCE .ROUTE 02/11/17 10:59 02/11/17 11:00 DC 02/11/17 11:02 40 MG Objective Vital Signs Date Time Temp Pulse Resp B/P (MAP) Pulse Ox O2 Delivery O2 Flow Rate FiO2 02/11/17 11:35 36.9 73 20 105/66 (79) 98 Mask 5.0 02/11/17 11:08 70 28 93 Nasal Cannula 5.0 02/11/17 08:00 Oxymask 6.0 02/11/17 07:14 36.8 94 26 119/68 (85) 97 Mask 5.0 02/11/17 07:13 85 28 90 Mask 5.0 02/11/17 04:14 36.5 76 18 131/83 (99) 96 Mask 5.0 02/11/17 04:00 95 Mask 5.0 02/11/17 00:00 95 Mask 5.0 02/10/17 23:30 37.0 97 18 157/74 (101) 95 5.0 02/10/17 20:00 95 Mask 5.0 02/10/17 19:51 36.5 95 18 129/76 (93) 93 4.0 02/10/17 19:23 69 24 92 Mask 4.0 02/10/17 16:00 Oxymask 6.0 02/10/17 15:21 36.5 62 22 108/66 (80) 99 Mask 4.0 02/10/17 15:07 63 20 99 Mask 4.0 02/10/17 14:04 118/70 (86) Physical Exam General Appearance: + mild distress Neck: supple, no adenopathy, no JVD Respiratory/Chest: chest non-tender, no accessory muscle use, + respiratory distress, + crackles, + wheezing Cardiovascular: regular rate, rhythm, no edema, no murmur Abdomen: normal bowel sounds, soft Extremities: non-tender, normal inspection, no calf tenderness, + pedal edema Neurologic/Psychiatric: alert, normal mood/affect Skin: no rash Laboratory Results Last 24 Hours Test 02/10/17 23:15 02/11/17 06:27 02/11/17 11:06 Vancomycin Level Trough 14.0 mcg/ml White Blood Count 11.15 K/uL Red Blood Count 3.46 M/uL Hemoglobin 11.3 g/dL Hematocrit 33.8 % Mean Corpuscular Volume 97.7 fL Mean Corpuscular Hemoglobin 32.7 pg Mean Corpuscular Hemoglobin Concent 33.4 g/dl RDW Standard Deviation 49.5 fL RDW Coefficient of Variation 13.9 % Platelet Count 161 K/uL Mean Platelet Volume 9.2 fL Activated Partial Thromboplast Time 35.1 SECONDS Partial Thromboplastin Ratio 1.4 Sodium Level 146 mmol/L Potassium Level 3.2 mmol/L Chloride Level 112 mmol/L Carbon Dioxide Level 26 mmol/L Anion Gap 8.0 mmol/L Blood Urea Nitrogen 20 mg/dl Creatinine 0.84 mg/dl Est Creatinine Clear Calc Drug Dose 68.7 ml/min Estimated GFR () 92.5 Estimated GFR (Non- 79.8 BUN/Creatinine Ratio 23.7 Random Glucose 94 mg/dl Calcium Level 7.8 mg/dl Total Bilirubin 1.5 mg/dl Aspartate Amino Transf (AST/SGOT) 22 U/L Alanine Aminotransferase (ALT/SGPT) < 6 U/L Alkaline Phosphatase 52 U/L Total Protein 5.3 gm/dl Albumin 1.7 gm/dl Globulin 3.6 gm/dl Albumin/Globulin Ratio 0.5 Assessment and Plan 86 y/o male with a history of chronic diastolic CHF, Parkinson's disease w/ mild dementia, h/o falls, chronic atrial fibrillation on Eliquis, HTN, with known orthostasis/autonomic insufficiency, cirrhosis with evidence of portal HTN , history of right renal mass, moderate aortic stenosis, suspected pulmonary fibrosis, and BPH who presented to the ED on 02/05 with altered mental status. He had a fever and cough for one week prior and was treated with IM Rocephin x1 followed by po Levaquin. He was lying in bed quite lethargic for 2 days prior as per daughter ad the presented to the ER. Head CT shows subacute L occipital infarct, no hemorrhage. CXR shows diffuse parenchymal fibrosis with a superimposed infiltrate in left base. LUE Doppler ultrasound negative for DVT. Pt febrile, hypotensive, tachypneic, and hypoxic in ED. WBC 13.88. POC lactic acid 2.14. Troponin 2.21. BNP 3606. Given azithromycin, vancomycin and cefepime in ED. -Repeat lactic acid improved with IVFs and abx to 1.7 MRI brain shortly after admission shows innumerable CVAs in embolic pattern in all vascular distributions Sepsis w/ acute metabolic encephalopathy, HCAP, acute hypoxemic respiratory failure-->significantly worsening respiratory status today. WBC count trended downward, afebrile. Likely secondary to significant pulm edema from acute on chronic diastolic CHF -continue telemetry -continue Zosyn and vancomycin IV (despite neg MRSA swab given severe condition ) for total 7 days -Blood cx NG, Ur cx no growth -held IVFs for fluid overload starting 02/08, gave lasix 20mg IV x 1 on 02/08, again on 02/09 with good response ABG 7.47// BiPAP placed for severe pulm edema and had improvement, wean off BiPAP as able to -continue lasix diuresis again in the AM with lasix 20mg IV qAM, goal diuresis - 1-2L per day -follow renal function and lytes -DuoNebs QIDR and q2h prn SOB/wheezing Develop Resp distress secondary to possible CHF, vs Pulmonary edema vs PNA. -- We give a stat dose of lasix 20mg iv one time, repeated a CXR CXR portable shows: 1. Cardiomegaly. 2. There are diffuse bilateral airspace opacities, not significantly changed from yesterday. 3. Layering pleural effusions. -- pt rep status improved after lasix. -- pt WBC trended downward. -- afebrile with stable VS -- Advise in case further worsening sob will do Ct chest? -- replaced potassium, and NA remain 146. -- BIPAP PRN if worsening resp status along with ABG -- monitor I&O --cont IV antibiotics for now. 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 LUE paresis -MRI brain shows bilateral subacute infarcts. Vascular distribution favors embolic etiology. Initially suspected possible failure of Eliquis, however it was discovered that he has only been on Eliquis 5mg qhs for the last 16 months as an outpt. So can not consider this a failure of Eliquis. Discussed with family. No vegetation on valves on ECHO, BCXs no growth so far, most likely not septic emboli. A-fib with emboli as most likely cause. mental status waxes and wanes--> Speech cleared for pureed diet with nectar thick liquids, is eating at times and doing ok with it -poor prognosis but seems to be having some recovery -repeat head CT without hemorrhagic conversion on 02/06 and 02/07, and 02/08. Discussed case with Neuro and Cardiology--> placed on a heparin gtt and now taking po so will switch back to Eliquis--> discussed risks vs benefits with daughter but with ongoing A-fib and obvious embolic CVA, AC is necessary -if deteriorating status, repeat head CT to check for hemorrhage -consider comfort measures if not improving with treatment of PNA/sepsis and with time -PT/OT/ST evals -Neuro checks -cont ASA daily -Palliative Care consult appreciated Elevated troponin-likely secondary to demand ischemia in setting of sepsis and CVA -Trop peaked on admission at 2.2, then trended downward -appreciate Cardiology consult- no further intervention or eval -EKG ok Atrial fibrillation, bradycardia, 5.5 second pause on telemetry x 2--could be secondary to CVA, vs med SEs from Antiparkinson drugs? No further bradycardia or pauses on tele last 24 hrs -was holding Sinemet, Exelon--> now restart Sinemet due to worsening PD symptoms -follow on tele -dc heparin gtt and start Elqiuis 5mg po bid now that is taking po Acute on chronic diastolic CHF, Severe , mild AI, Pleural effusions CXR 02/09 with significant pulm edema with resp distress, resp failure--> diuresed with Lasix IV, placed BiPAP--> improving -strict I/Os, daily weights -continue lasix 20mg IV qAM and increase as needed ECHO: * Compared with 08/30/15 study, LVH increased and aortic stenosis is more severe , mitral and tricuspid regurgitation less apparent than before. * Left ventricular systolic function is normal. * Ejection Fraction = 60-65%. * The left ventricular wall motion is normal. * There is moderate concentric left ventricular hypertrophy. * Moderate to severe valvular aortic stenosis. * Mild aortic regurgitation. * Moderate pleural effusion suggested. * Injection of contrast documented no interatrial shunt. BPH-no issues -restarted alfuzosin 10 mg PO qhs and finasteride 5 mg PO qhs now that is norma po -continue Arteaga now to prevent outlet obstruction and while bed bound Parkinson's disease w/dementia-developing stiffness and rigidity restart Sinemet 25/100 2 tabs PO QID --continue to hold Exelon 13.3 mg patch TD qd Orthostatic hypotension-no issues currently -restart Midodrine 7.5 mg PO TID LUE edema-unclear etiology-Doppler LUE negative x 2 serially--> improving with diuresis DVT prophylaxis -heparin and now Eliquis -WENDI cortez and SCDs Code Status -Level V, DO NOT RESUSCITATE Daughter reports pt has made it clear that he would not want artificial feeding tube or life support, ok with IV abx Continued [facility] stay due to: multiple IV medications needed, home environment unsafe for pt Discharge planning: [facility] facility
[2017-02-11] MEDS ORDERED: POTASSIUM CHLORIDE 10 MEQ TABCR PO ONE (13:15)
--- NOTE | 2017-02-11 13:16 | Pharmacy Progress Note ---
Pharmacy Abx Dose Progress Nt Date of Service Feb 11, 2017. Pharmacy Dosing Scope The patient is currently receiving the following antimicrobial agents per Pharmacy consult: Vancomycin 1500 mg IV every 18 hours Zosyn 3.375gm (ext-infusion) IV Q 8 hours Objective Height (Feet): 5 Height (Inches): 7.00 Weight (Kilograms): 89.600 Vital Signs (Past 12Hrs) Vital Signs Past 12 Hours Date Time Temp Pulse Resp B/P (MAP) Pulse Ox O2 Delivery O2 Flow Rate FiO2 02/11/17 11:35 36.9 73 20 105/66 (79) 98 Mask 5.0 02/11/17 11:08 70 28 93 Nasal Cannula 5.0 02/11/17 08:00 Oxymask 6.0 02/11/17 07:14 36.8 94 26 119/68 (85) 97 Mask 5.0 02/11/17 07:13 85 28 90 Mask 5.0 02/11/17 04:14 36.5 76 18 131/83 (99) 96 Mask 5.0 02/11/17 04:00 95 Mask 5.0 Lab Results (24Hrs) Laboratory Tests (24 Hours) Test 02/11/17 06:27 White Blood Count 11.15 K/uL (4.8-10.8) H Micro Results Date/Time Source Procedure Growth Status 02/05/17 10:30 Blood Blood Culture - Final NO GROWTH Complete 02/05/17 09:49 Blood Blood Culture - Final NO GROWTH Complete 02/06/17 11:10 Nasal MRSA DNA Surveillance Screen - Final Specimen Negative for MRSA by DNA Probe Complete 02/05/17 00:00 Urine,Catheterized Urine Culture - Final NO GROWTH - LESS THAN 1,000 COLONIES/ML Complete Risk Factors for Resistance * Resident in a prison or extended-care facility * Current hospitalization > 5 days * Antimicrobial use within the last 90 days Rocephin and Levofloxacin 02/02 Assessment & Plan Assessment * 86 year old male receiving Vancomycin + Zosyn IV for treatment of suspected HCAP * Day # 6/7 of Zosyn therapy, Day # 4/7 Vancomycin (vanco was interrupted for 24 + hours on 02/07) * Patient has been afebrile, WBC has been trending down however pt did become tachypneic today w/ RR upper 20's * Although cx's are negative and MRSA nasal swab negative, provider wishes to continue w/ current ABX - no deescalation at this time. Provider would like Zosyn to complete it's 7 day course and continue Vancomycin for 7 days from 02/08 when therapy was restarted. * Renal fxn stable/unchanged. Plan Vancomycin IV * Trough level of 14 mcg/mL is slightly subtherapeutic. Level was drawn at appropriate time and prior doses hung on schedule * Change to 1500 mg IV every 14 hours * Goal trough level for pulm infxn : 15 to 20 mcg/mL * Trough level ordered for: 02/13/17 Piperacillin/tazobactam * Continue 3.375 g IV extended infusion every 8 hours for CrCl greater than 20 mL/min Pharmacy will continue to follow and will adjust dose/frequency as necessary. Thank you.
[2017-02-11 14:10] LABS: BUN/CREATININE RATIO 24.3 (10-20); CALCIUM 7.2 mg/dl (8.5-10.1); CREATININE 0.76 mg/dl (0.60-1.40); POTASSIUM 2.8 mmol/L (3.5-5.1)
[2017-02-11] MEDS: ALFUZosin TAB 10 MG TAB PO SCH (20:54)
[2017-02-12] VITALS (13 sets, daily range): BP systolic 97–135; BP diastolic 55–79; PULSE 65–97; TEMP 36.6–37.4; O2SAT 91–99
[2017-02-12] MEDS: VANCOMYCIN INJ 1,500 MG in SODIUM CHLORIDE 0.9% 500ML 500 ML IV SCH ×2 (03:25→17:24)
[2017-02-12 05:53] LABS: PARTIAL THROMBOPLASTIN RATIO 1.3
[2017-02-12 06:17] LABS: CREATININE 0.76 mg/dl (0.60-1.40)
[2017-02-12] MEDS: PIPERACILL/TAZOBAC IV 3.375 GM in DEXTROSE 5% 100ML 100 ML IV SCH (06:33)
[2017-02-12] MEDS: MIDODRINE 2.5 MG TAB PO SCH ×3 (06:35→14:41)
[2017-02-12] MEDS: ALBUT/IPRATROP 3MG/0.5MG NEB 3 ML VIAL INH SCH ×4 (07:14→19:29)
[2017-02-12] MEDS: FUROSEMIDE INJ 20 MG in SYRINGE 0 ML IV SCH (08:00)
[2017-02-12] MEDS: SENNA 8.6 MG TAB PO SCH (08:00)
[2017-02-12] MEDS: CARBIDOPA/LEVODOPA 25/100MG TAB PO SCH ×4 (08:00→20:34)
[2017-02-12] MEDS: APIXABAN 2.5 MG TAB PO SCH ×2 (08:00→20:33)
[2017-02-12] MEDS: CEROVITE ADV FORMULA TAB PO SCH (08:00)
[2017-02-12] MEDS: PANTOprazole SOD 40 MG TAB PO SCH (08:00)
[2017-02-12] MEDS: FINASTERIDE 5 MG TAB PO SCH (08:00)
[2017-02-12] MEDS: CHOLECALCIFEROL 1000 INTER.UNIT TAB PO SCH (08:01)
[2017-02-12] MEDS: ASPIRIN 81 MG ECTAB PO SCH (08:01)
--- NOTE | 2017-02-12 09:49 | Hospitalist Progress Note ---
Hospitalist Progress Note Date of Service Feb 12, 2017. (Lena Hills PA-C) Subjective Pt evaluation today including: conversation w/ patient, conversation w/ family , physical exam, chart review, lab review, review of studies Pain: None PO Intake: Fair Voiding: no voiding problems The patient was seen and examined this morning. Pts son in Alec pickering was present at bedside who had several questions and concerns which were addressed. The patient is fatigued and minimally participates in discussion. He can tell me he's in a hospital and that he has no pain. Pt does admit to feeling warm, but denies sweats or chills. He denies feeling short of breath or having chest pain. Other than this ROS was not obtained due to fatigue. Additional Comments: See HPI. (Lena Hills, TRACEY) Objective Vital Signs Date Time Temp Pulse Resp B/P (MAP) Pulse Ox O2 Delivery O2 Flow Rate FiO2 02/12/17 08:00 Oxymask 6.0 02/12/17 07:22 37.0 86 18 125/74 (91) 91 Nasal Cannula 4.0 02/12/17 07:14 89 24 91 Nasal Cannula 4.0 02/12/17 04:05 36.8 77 18 132/55 (80) 93 4.0 02/12/17 04:00 Nasal Cannula 5.0 02/12/17 03:22 36.6 97 24 114/68 (83) 92 Nasal Cannula 5.0 02/12/17 00:00 Nasal Cannula 5.0 02/11/17 23:17 36.8 74 18 96/56 (69) 93 4.0 02/11/17 20:00 Nasal Cannula 5.0 02/11/17 19:23 36.7 71 18 126/78 (94) 100 4.0 02/11/17 18:57 74 26 96 Nasal Cannula 5.0 02/11/17 16:00 Room Air 5.0 02/11/17 15:44 36.8 64 22 121/71 (88) 100 Nasal Cannula 5.0 02/11/17 15:16 69 28 97 Nasal Cannula 5.0 02/11/17 12:00 Oxymask 6.0 02/11/17 11:35 36.9 73 20 105/66 (79) 98 Mask 5.0 02/11/17 11:08 70 28 93 Nasal Cannula 5.0 (Lena Hills PA-C) Physical Exam General Appearance: no apparent distress, + pertinent finding (ill, sleeping upon entry to the room, awakens with verbal stimuli, minimally participates in discussion.) Eyes: + pertinent finding (eyes remained closed during exam) ENT: hearing grossly normal, + pertinent finding (mucous membranes are dry) Neck: supple, no JVD Respiratory/Chest: + accessory muscle use, + wheezing, + pertinent finding (On 4 L via NC, + musical breath sounds with inspiratory and expiratory wheezing, diminished breath sounds at bases. ) Cardiovascular: + tachycardia (slightly), + systolic murmur Abdomen: normal bowel sounds, non tender, soft Extremities: no calf tenderness, + pedal edema (minimal BLE, waffle boots in place) Neurologic/Psychiatric: + pertinent finding (fatigued, awakes to verbal stimuli , oriented to self and place.) Skin: normal color, + diaphoresis, + pertinent finding (ecchymosis over upper extremities bilaterally) (Lena Hills, GERALDC) Laboratory Results Last 24 Hours Test 02/11/17 11:06 02/11/17 13:17 02/12/17 05:26 Sodium Level 146 mmol/L 145 mmol/L Potassium Level 3.2 mmol/L 2.8 mmol/L Chloride Level 112 mmol/L 110 mmol/L Carbon Dioxide Level 26 mmol/L 29 mmol/L Anion Gap 8.0 mmol/L 6.0 mmol/L Blood Urea Nitrogen 20 mg/dl 18 mg/dl Creatinine 0.84 mg/dl 0.76 mg/dl 0.76 mg/dl Est Creatinine Clear Calc Drug Dose 68.7 ml/min 75.9 ml/min 75.9 ml/min Estimated GFR () 92.5 96.4 96.4 Estimated GFR (Non- 79.8 83.2 83.2 BUN/Creatinine Ratio 23.7 24.3 Random Glucose 94 mg/dl 86 mg/dl Calcium Level 7.8 mg/dl 7.2 mg/dl Total Bilirubin 1.5 mg/dl Aspartate Amino Transf (AST/SGOT) 22 U/L Alanine Aminotransferase (ALT/SGPT) < 6 U/L Alkaline Phosphatase 52 U/L Total Protein 5.3 gm/dl Albumin 1.7 gm/dl Globulin 3.6 gm/dl Albumin/Globulin Ratio 0.5 Activated Partial Thromboplast Time 34.0 SECONDS Partial Thromboplastin Ratio 1.3 (Lena Hills, TRACEY) Assessment and Plan 86 y/o male with a history of chronic diastolic CHF, Parkinson's disease w/ mild dementia, h/o falls, chronic atrial fibrillation on Eliquis, HTN, with known orthostasis/autonomic insufficiency, cirrhosis with evidence of portal HTN , history of right renal mass, moderate aortic stenosis, suspected pulmonary fibrosis, and BPH who presented to the ED on 02/05 with altered mental status. 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 - Speech eval- purred diet with nectar thick liquids. - PT/OT/ST evals - Neuro checks - cont ASA daily - Palliative Care consult appreciated Chronic A-fib on Eliquis. LUE paresis - Found Eliquis was being dosed 5 mg QHS for the last 16 months as an outpt. So can not consider this a failure of Eliquis. Discussed with family by Dr. Do last week. - ECHO completed without valvular abnormalities, unlikely septic emboli - afib most likely cause Elevated troponin-likely secondary to demand ischemia in setting of sepsis and CVA -Trop peaked on admission at 2.2, then trended downward - Cards input appreciated Acute on chronic diastolic CHF Severe , mild AI, Pleural effusions -strict I/Os, daily weights -continue lasix 20mg IV qAM and increase as needed - 2 D echo completed Hypokalemia - K+ 2.8 this morning, replaced orally with total of 60 meq, trend am labs BPH-no issues - Cont alfuzosin 10 mg PO qhs and finasteride 5 mg PO qhs -continue Lim now to prevent outlet obstruction and while bed bound Parkinson's disease w/dementia - Cont Sinemet 25/100 2 tabs PO QID - continue to hold Exelon 13.3 mg patch TD qd Orthostatic hypotension-no issues currently -Cont Midodrine 7.5 mg PO TID DVT ppx: Eliprimitivo, teds, scds Code Status: DNR Discussion held with son in Alec pickering at bedside regarding next steps, PT/OT, possible discharge date, and all his questions and concerns were answered. Disposition: From [facility], PT/OT on board, discharge unknown, >2 days. (Lena Hills, PAKev) PA Physician Supervision Note: I interviewed and examined the patient. Discussed with Lena Hills PAC and agree with findings and plan as documented in the note. Any exceptions or clarifications are listed here: None Patient is lethargic but arousable, he can follow commands but is very weak especially with residual right-sided weakness. Vitals are reviewed and are stable next He sounds a be in A. 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
[2017-02-12] MEDS: POTASSIUM CHLORIDE 10 MEQ TABCR PO SCH ×2 (10:01→11:31)
[2017-02-12 11:27] LABS: BUN/CREATININE RATIO 20.2 (10-20); CREATININE 0.9 mg/dl (0.60-1.40); POTASSIUM 3.3 mmol/L (3.5-5.1)
[2017-02-12] MEDS: ALFUZosin TAB 10 MG TAB PO SCH (20:33)
[2017-02-13] VITALS (16 sets, daily range): BP systolic 106–165; BP diastolic 62–95; PULSE 61–101; TEMP 36.4–36.9; O2SAT 91–99
[2017-02-13] MEDS: MIDODRINE 2.5 MG TAB PO SCH ×3 (06:14→17:07)
[2017-02-13] MEDS: ALBUT/IPRATROP 3MG/0.5MG NEB 3 ML VIAL INH SCH ×4 (07:21→19:42)
[2017-02-13] MEDS ORDERED: VANCOMYCIN TROUGH ONE (07:30)
[2017-02-13 08:07] LABS: HEMATOCRIT 35.9 % (42-52); MEAN CELL VOLUME 96.8 fL (80-100); MEAN CORPUSCULAR HEMOGLOBIN 31.5 pg (25-34); MEAN CORPUSCULAR HGB CONC 32.6 g/dl (32-36); MEAN PLATELET VOLUME 8.5 fL (7.4-10.4); PLATELET COUNT 219 K/uL (130-400); RED BLOOD COUNT 3.71 M/uL (4.7-6.1); WHITE BLOOD COUNT 9.59 K/uL (4.8-10.8)
[2017-02-13] MEDS: CEROVITE ADV FORMULA TAB PO SCH ×2 (08:25→08:53)
[2017-02-13] MEDS: ASPIRIN 81 MG ECTAB PO SCH (08:25)
[2017-02-13] MEDS: PANTOprazole SOD 40 MG TAB PO SCH (08:25)
[2017-02-13] MEDS: CARBIDOPA/LEVODOPA 25/100MG TAB PO SCH ×4 (08:26→20:24)
[2017-02-13] MEDS: SENNA 8.6 MG TAB PO SCH (08:26)
[2017-02-13] MEDS: FINASTERIDE 5 MG TAB PO SCH (08:27)
[2017-02-13] MEDS: APIXABAN 2.5 MG TAB PO SCH ×2 (08:27→20:23)
[2017-02-13] MEDS: CHOLECALCIFEROL 1000 INTER.UNIT TAB PO SCH (08:27)
[2017-02-13] MEDS: FUROSEMIDE INJ 20 MG in SYRINGE 0 ML IV SCH (08:28)
[2017-02-13 08:32] LABS: PARTIAL THROMBOPLASTIN RATIO 1.3
[2017-02-13] MEDS: VANCOMYCIN INJ 1,500 MG in SODIUM CHLORIDE 0.9% 500ML 500 ML IV SCH (08:42)
--- NOTE | 2017-02-13 09:07 | Hospitalist Progress Note ---
Hospitalist Progress Note Date of Service Feb 13, 2017. (Lena Hills PA-C) WANDA Physician Supervision Note: I interviewed and examined the patient. Discussed with Lena Hills PAC and agree with findings and plan as documented in the note. 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 with lethargy and weakness likely will need supportive environment after discharge, are pursuing return to snf and rehab, if declines family is on board with possible approach to hospice, Atrial fibrillation resumed eliquis, rate controlled Pneumonia has completed one week of IV antibiotics, will has aspiration precautions given his variable mental status Documented By: Sushil Jhaveri (Sushil Jhaveri M.D.) Subjective Pt evaluation today including: conversation w/ patient, physical exam, chart review, lab review, review of studies Pain: None PO Intake: Fair Voiding: arteaga catheter in place The patient was seen and examined this morning. Pt is a little more talkative today, but responds with mostly 1-2 word answers. He denies any pain or discomfort. He has been eating small amounts of food. He is finishing a nebulizer treatment when were were talking, and reports feeling a little better after the treatment. He denies fever, sweats or chills, chest pain, difficulty breathing, abd pain. Additional Comments: ROS: 6 point ROS reviewed and otherwise negative. (Lena Hills PA-C) Objective Vital Signs Date Time Temp Pulse Resp B/P (MAP) Pulse Ox O2 Delivery O2 Flow Rate FiO2 02/13/17 08:02 95 Nasal Cannula 6.0 02/13/17 07:41 36.4 61 19 112/68 (83) 99 Nasal Cannula 6.0 02/13/17 07:23 79 16 95 Nasal Cannula 6.0 02/13/17 04:15 Nasal Cannula 6.0 02/13/17 03:54 36.8 74 18 112/66 (81) 99 6.0 02/13/17 00:15 Nasal Cannula 4.0 02/12/17 23:27 36.8 76 20 116/74 (88) 99 4.0 02/12/17 20:04 95 Nasal Cannula 4.0 02/12/17 19:38 37.4 77 22 135/79 (97) 96 Nasal Cannula 4.0 02/12/17 19:29 77 22 97 Nasal Cannula 4.0 02/12/17 16:00 95 Nasal Cannula 4.0 02/12/17 16:00 95 Nasal Cannula 4.0 02/12/17 15:46 36.9 72 18 122/71 (88) 98 Nasal Cannula 4.0 02/12/17 15:10 65 24 95 Nasal Cannula 4.0 02/12/17 12:26 76 16 98/62 (74) 95 97/61 (73) 02/12/17 12:00 Oxymask 6.0 02/12/17 11:29 37.0 (Lena Hills PA-C) Physical Exam Notes: General Appearance: no apparent distress, + pertinent finding ( appears chronically ill, sleeping upon entry to the room, awakens with verbal stimuli, minimally participates in discussion.) Eyes: + pertinent finding (eyes remained closed during exam) ENT: hearing grossly normal, + pertinent finding (mucous membranes are dry) Neck: supple, no JVD Respiratory/Chest: + accessory muscle use, + wheezing, + pertinent finding (On 4 L via NC, + musical breath sounds with inspiratory and expiratory wheezing, diminished breath sounds at bases. ) Cardiovascular: + irregularly irregular, tachycardia (slightly), + systolic murmur Abdomen: normal bowel sounds, non tender, soft Extremities: no calf tenderness, + pedal edema (minimal BLE, waffle boots in place), moves his toes, ankles, and knees bilaterally on command. Neurologic/Psychiatric: + pertinent finding (awakes to verbal stimuli, oriented to self and place.) Skin: normal color, + diaphoresis, + pertinent finding (ecchymosis over upper extremities bilaterally) (Lena Hills PA-C) Laboratory Results Last 24 Hours Test 02/12/17 10:16 02/13/17 07:55 Sodium Level 146 mmol/L Potassium Level 3.3 mmol/L Chloride Level 110 mmol/L Carbon Dioxide Level 26 mmol/L Anion Gap 10.0 mmol/L Blood Urea Nitrogen 18 mg/dl Creatinine 0.90 mg/dl Est Creatinine Clear Calc Drug Dose 63.0 ml/min Estimated GFR () 89.9 Estimated GFR (Non- 77.6 BUN/Creatinine Ratio 20.2 Random Glucose 96 mg/dl Calcium Level 8.0 mg/dl White Blood Count 9.59 K/uL Red Blood Count 3.71 M/uL Hemoglobin 11.7 g/dL Hematocrit 35.9 % Mean Corpuscular Volume 96.8 fL Mean Corpuscular Hemoglobin 31.5 pg Mean Corpuscular Hemoglobin Concent 32.6 g/dl RDW Standard Deviation 48.7 fL RDW Coefficient of Variation 13.9 % Platelet Count 219 K/uL Mean Platelet Volume 8.5 fL Activated Partial Thromboplast Time 33.9 SECONDS Partial Thromboplastin Ratio 1.3 Vancomycin Level Trough 23.0 mcg/ml (Lena Hills, TRACEY) Assessment and Plan 86 y/o male with a history of chronic diastolic CHF, Parkinson's disease w/ mild dementia, h/o falls, chronic atrial fibrillation on Eliquis, HTN, with known orthostasis/autonomic insufficiency, cirrhosis with evidence of portal HTN , history of right renal mass, moderate aortic stenosis, suspected pulmonary fibrosis, and BPH who presented to the ED on 02/05 with altered mental status. 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 - Speech eval- purred diet with nectar thick liquids. - PT/OT/ST evals - Neuro checks - cont ASA daily - Palliative Care consult appreciated - CM on board - have asked to start referrals for back to [facility] as the pt does not seem to be advancing much. His prognosis is unfortunately poor in regards to regaining mobility function, discharge when bed available for PT/OT and can transition to hospice once at [facility]. Chronic A-fib on Eliquis. LUE paresis - Found Eliquis was being dosed 5 mg QHS for the last 16 months as an outpt. So can not consider this a failure of Eliquis. Discussed with family by Dr. Do last week. Question if this was renally dosed due to age and creatinine clearance by outpatient provider as its unlikely this would be discounted by multiple providers. - ECHO completed without valvular abnormalities, unlikely septic emboli - afib most likely cause Elevated troponin-likely secondary to demand ischemia in setting of sepsis and CVA -Trop peaked on admission at 2.2, then trended downward - Cards input appreciated Acute on chronic diastolic CHF Severe , mild AI, Pleural effusions -strict I/Os, daily weights -continue lasix 20mg IV qAM and increase as needed - 2 D echo completed Hypokalemia - K+ 3.3 this morning, replaced orally with 20 meq x 2 today. BPH-no issues - Cont alfuzosin 10 mg PO qhs and finasteride 5 mg PO qhs -continue Arteaga now to prevent outlet obstruction and while bed bound Parkinson's disease w/dementia - Cont Sinemet 25/100 2 tabs PO QID - continue to hold Exelon 13.3 mg patch TD qd as not formulary Orthostatic hypotension-no issues currently -Cont Midodrine 7.5 mg PO TID DVT ppx: Eliquis, teds, scds Code Status: DNR Disposition: From [facility], PT/OT on board, discharge when bed available. (Lena Hills, TRACEY)
[2017-02-13] MEDS ORDERED: POTASSIUM CHLORIDE 20 MEQ TABCR PO SCH (10:00)
[2017-02-13] MEDS: POTASSIUM CHLORIDE 20 MEQ TABCR PO SCH (14:20)
--- NOTE | 2017-02-13 15:25 | Pharmacy Progress Note ---
Pharmacy Abx Dose Short Note Date of Service Feb 13, 2017. Assessment & Plan Assessment * 86 year old male receiving Vancomycin + Zosyn IV for treatment of suspected HCAP * Patient completed 7 days of Zosyn therapy, Day # 01/10 Vancomycin (vanco was interrupted for 24+ hours on 02/07) * Although cx's are negative and MRSA nasal swab negative, provider wishes to continue w/ current ABX - no deescalation at this time. Provider would like Zosyn to complete it's 7 day course and continue Vancomycin for 7 days from 02/08 when therapy was restarted. * Renal fxn stable. Plan Vancomycin IV * Trough level of 23 mcg/mL is supratherapeutic. Level was drawn at appropriate time and prior doses hung on schedule * Change to Vancomycin 1250 mg IV every 16 hours * Goal trough level for pulm infxn : 15 to 20 mcg/mL * No further levels have been ordered at this time, as patient is near end of therapy. If vancomycin is continued beyond 7 days of tx, will re-assess the need for additional monitoring at that time. Pharmacy will continue to follow and will adjust dose/frequency as necessary. Thank you.
[2017-02-13] MEDS: ALFUZosin TAB 10 MG TAB PO SCH (20:25)
[2017-02-14] VITALS (8 sets, daily range): BP systolic 110–130; BP diastolic 68–74; PULSE 61–102; TEMP 36.6–36.9; O2SAT 92–98
--- NOTE | 2017-02-14 06:31 | DIAGNOSTIC IMAGING REPORT ---
CHEST ONE VIEW PORTABLE CLINICAL HISTORY: sob dyspnea COMPARISON STUDY: 02/11/2017 FINDINGS: Similar study compared to the prior exam. Unchanging upper lobe parenchymal infiltrative change. Unchanging left basilar and to lesser extent right basilar infiltrative change. Moderate stable cardiomegaly. IMPRESSION: Unchanged diffuse bilateral parenchymal infiltrative change. Stable moderate cardiomegaly. Electronically signed by: Rik Phan M.D. 02/14/2017 6:30 AM Dictated Date/Time: 02/14/2017 6:29 AM
[2017-02-14] MEDS: MIDODRINE 2.5 MG TAB PO SCH ×3 (07:00→14:24)
[2017-02-14] MEDS: ALBUT/IPRATROP 3MG/0.5MG NEB 3 ML VIAL INH SCH ×2 (07:31→11:08)
[2017-02-14 07:40] LABS: PARTIAL THROMBOPLASTIN RATIO 1.3
[2017-02-14] MEDS ORDERED: VANCOMYCIN INJ 1,250 MG in SODIUM CHLORIDE 0.9% 250ML 250 ML IV SCH (08:00)
[2017-02-14] MEDS: FUROSEMIDE INJ 20 MG in SYRINGE 0 ML IV SCH (08:46)
[2017-02-14] MEDS: SENNA 8.6 MG TAB PO SCH ×2 (09:00→11:55)
[2017-02-14] MEDS: CEROVITE ADV FORMULA TAB PO SCH (09:00)
[2017-02-14] MEDS: CHOLECALCIFEROL 1000 INTER.UNIT TAB PO SCH (09:00)
[2017-02-14] MEDS: FINASTERIDE 5 MG TAB PO SCH ×2 (09:00→11:58)
[2017-02-14] MEDS: ASPIRIN 81 MG ECTAB PO SCH ×2 (09:00→11:55)
[2017-02-14] MEDS: CARBIDOPA/LEVODOPA 25/100MG TAB PO SCH ×2 (09:00→11:53)
[2017-02-14] MEDS: APIXABAN 2.5 MG TAB PO SCH ×2 (09:00→11:54)
[2017-02-14] MEDS: PANTOprazole SOD 40 MG TAB PO SCH (09:00)
[2017-02-14] MEDS: POTASSIUM CHLORIDE 20 MEQ TABCR PO SCH ×2 (09:00→11:56)
--- NOTE | 2017-02-14 11:10 | Hospitalist Progress Note ---
Hospitalist Progress Note Date of Service Feb 14, 2017. Subjective Pt evaluation today including: conversation w/ patient, conversation w/ family , physical exam, chart review, lab review, review of studies Pain: None PO Intake: Fair Voiding: arteaga catheter in place The patient was seen and examined this morning. Pt was see with son in Alec pickering at bedside. OT was also at bedside working with the pt. He does not speak very much this morning, but does weakly say yes or no. He notes it hurts when his left arm is extended. He ate 100% of breakfast yesterday per nursing, but then not as much since then. Pt denies any current pain or complaints. Discussion was held regarding hospice. At this time Alec is in agreement with transition to hospice only. I also called and spoke with Bronwyn, the pts daughter , and she is in agreement with this as well. Additional Comments: ROS; not obtained due to somnolence, other than listed per HPI. Objective Vital Signs Date Time Temp Pulse Resp B/P (MAP) Pulse Ox O2 Delivery O2 Flow Rate FiO2 02/14/17 09:28 102 28 118/72 (87) 94 Venturi Mask 6.0 02/14/17 08:35 97 18 95 Mask 6.0 02/14/17 08:00 92 Oxymask 6.0 02/14/17 07:34 36.9 61 16 123/74 (90) 95 Mask 6.0 02/14/17 05:07 36.6 82 20 130/ (43) 98 6.0 02/14/17 04:00 Oxymask 6.0 02/14/17 00:00 Nasal Cannula 4.0 02/13/17 23:46 36.6 74 20 121/62 (81) 91 4.0 02/13/17 21:54 92 Nasal Cannula 4.0 02/13/17 19:52 36.9 101 20 165/95 (118) 94 Nasal Cannula 5.0 02/13/17 19:42 92 18 91 Nasal Cannula 4.0 02/13/17 16:21 88 93 02/13/17 16:04 84 106/67 (80) 02/13/17 16:00 92 Nasal Cannula 02/13/17 16:00 92 Nasal Cannula 4.0 02/13/17 15:39 36.6 68 22 116/72 (87) 94 Humidified Oxygen 4.0 02/13/17 15:25 78 16 93 Nasal Cannula 4.0 02/13/17 12:22 95 Nasal Cannula 6.0 02/13/17 12:04 80 16 95 Nasal Cannula 6.0 02/13/17 11:26 36.4 80 22 114/62 (79) 96 Humidified Oxygen 6.0 Physical Exam Notes: General Appearance: no apparent distress, appears chronically ill, sleeping upon entry to the room, awakens with verbal stimuli, minimally participates in discussion. Eyes: eyes remained closed during exam ENT: hearing grossly normal, mucous membranes are moist Neck: supple, no JVD Respiratory/Chest: + accessory muscle use, + wheezing, (On 4 L via oximask, + improved breath sounds, + minimal inspiratory wheeze, + expiratory wheezing throughout, diminished breath sounds at bases. Cardiovascular: + irregularly irregular, tachycardia with HR in low 100s, + systolic murmur Abdomen: normal bowel sounds, non tender, soft Extremities: no calf tenderness, + pedal edema (minimal BLE, waffle boots in place), moves his toes, ankles, and knees bilaterally on command. Neurologic/Psychiatric: oriented to self, unable to determine if oriented to place or date. Skin: normal color, + slight diaphoresis, + pertinent finding (ecchymosis over upper extremities bilaterally) Laboratory Results Last 24 Hours Test 02/14/17 06:46 Activated Partial Thromboplast Time 33.4 SECONDS Partial Thromboplastin Ratio 1.3 Assessment and Plan 86 y/o male with a history of chronic diastolic CHF, Parkinson's disease w/ mild dementia, h/o falls, chronic atrial fibrillation on Eliquis, HTN, with known orthostasis/autonomic insufficiency, cirrhosis with evidence of portal HTN , history of right renal mass, moderate aortic stenosis, suspected pulmonary fibrosis, and BPH who presented to the ED on 02/05 with altered mental status. Plan to transition to hospice care at this time. Will return to [facility] on Hospice measures. Discussion was held with daughter- Bronwyn and son-in-law: Alec. Both in agreement. They will communicate with the other sibling. Will d /c all medications/labs/studies not related to comfort. Palliative medicine, Dr. Razo plans to see the pt this afternoon. 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 - Speech eval- purred diet with nectar thick liquids. - PT/OT/ST evals - Palliative Care consult appreciated - Dr. Razo to see the patient this afternoon. - CM on board - have asked to start referrals for back to [facility] as the pt does not seem to be advancing much. His prognosis is unfortunately poor in regards to regaining mobility function, discharge when bed available for PT/OT and can transition to hospice once at [facility]. Chronic A-fib on Eliquis. LUE paresis - Found Eliquis was being dosed 5 mg QHS for the last 16 months as an outpt. So can not consider this a failure of Eliquis. Discussed with family by Dr. Do last week. Question if this was renally dosed due to age and creatinine clearance by outpatient provider as its unlikely this would be discounted by multiple providers. - ECHO completed without valvular abnormalities, unlikely septic emboli - afib most likely cause Elevated troponin-likely secondary to demand ischemia in setting of sepsis and CVA -Trop peaked on admission at 2.2, then trended downward - Cards input appreciated Acute on chronic diastolic CHF Severe , mild AI, Pleural effusions -dc lasix 20mg IV qAM - 2 D echo completed Hypokalemia - K+ 3.3 yesterday, replaced. No further lab draws BPH-no issues - Cont alfuzosin 10 mg PO qhs and finasteride 5 mg PO qhs -continue Arteaga now to prevent outlet obstruction and while bed bound Parkinson's disease w/dementia - Cont Sinemet 25/100 2 tabs PO QID at time of discharge - continue to hold Exelon 13.3 mg patch TD Orthostatic hypotension-no issues currently - Stop midodrine DVT ppx: Eliquis, teds, scds Code Status: DNR Disposition: Discharge today on hospice care to [facility].
[2017-02-14] MEDS ORDERED: OXYC10SO PO ×2 (13:49→14:03)
[2017-02-14] MEDS ORDERED: SCOP1DIS14 TD ×2 (13:49→14:03)
--- NOTE | 2017-02-14 13:59 | Discharge Instructions ---
Discharge Instructions Date of Service Feb 14, 2017. Admission Reason for Admission: Altered Mental Status, Sepsis Discharge Discharge Diagnosis / Problem: Sepsis with acute metabolic encephalopathy secondary pneumonia Discharge Goals Goal(s): Decrease discomfort Activity Recommendations Activity Limitations: per Instructions/Follow-up section Lifting Limitations: gradually increase as tolerated Exercise/Sports Limitations: rest today, gradually increase as tolerated Shower/Bathe: no limitations Driving or Machine Use: DO NOT DRIVE . Instructions / Follow-Up Instructions / Follow-Up You were admitted to [facility] with altered mental status, sepsis secondary to Left lower lobe pneumonia and found to have multiple ischemic embolic acute and subacute strokes as noted on imaging. - During your stay here you were treated with antibiotics, breathing treatments , and other supportive care. - Physical therapy worked with your throughout your admission stay. - Your medications were adjusted at time of discharge to reflex comfort measures , supportive care, and transition to hospice. Please continue taking them as directed. - You have been given prescriptions for pain and shortness of breath to be used as necessary by your hospice team to keep you comfortable. You are being discharged to [facility] with Hospice Care. The hospice team will follow up with you within 48 hours of discharge from the hospital. Current Hospital Diet Patient's current hospital diet: AHA Diet (Heart Healthy), Low Sodium Diet (2gm Na) Discharge Diet Recommended Diet: Regular Diet Pending Studies Studies pending at discharge: no Laboratory Results Hemoglobin A1c Test 02/06/17 09:56 Range/Units Estimated Average Glucose 105 mg/dl Hemoglobin A1c 5.3 4.5-5.6 % Lipid Panel Test 02/07/17 06:08 Range/Units Triglycerides Level 74 0-150 mg/dl Cholesterol Level 77 0-200 mg/dl HDL Cholesterol 24 mg/dl Cholesterol/HDL Ratio 3.2 LDL Cholesterol, Calculated 38 mg/dl Medical Emergencies . Who to Call and When: Medical Emergencies: If at any time you feel your situation is an emergency, please call 911 immediately. . Non-Emergent Contact Non-Emergency issues call your: Primary Care Provider (Hospice care provider) . Past History Medical & Surgical History: (1) Sepsis due to pneumonia (2) Parkinson's disease (3) Sepsis (4) Weakness (5) Cerebrovascular accident (CVA) . "Provider Documentation" section prepared by Alana Hills. . VTE Core Measure Inpt VTE Proph given/why not?: Other Anticoagulation (Eliquis), TMarcos Fry, SCD's
--- NOTE | 2017-02-14 14:54 | Discharge Summary ---
Discharge Summary Date of Service Feb 14, 2017. (Lena Hills PA-C) Discharge Summary Admission Date: Feb 05, 2017 at 14:00 Discharge Date: Feb 14, 2017 Discharge Disposition: [facility] facility (Hospice Care) Principal Diagnosis: Sepsis with acute metabolic encephalopathy secondary to LLL HCAP Problems/Secondary Diagnoses: chronic diastolic CHF, Parkinson's disease w/ mild dementia, h/o falls, chronic atrial fibrillation on Eliquis, HTN, with known orthostasis/autonomic insufficiency, cirrhosis with evidence of portal HTN , history of right renal mass, moderate aortic stenosis, suspected pulmonary fibrosis, and BPH Immunizations: Have You Had Influenza Vaccine: Yes History of Tetanus Vaccine?: Yes History of Pneumococcal: Yes History of Hepatitis B Vaccine: No Procedures: CXR 02/05/2017 IMPRESSION: 1. Diffuse parenchymal fibrosis. 2. Mild superimposed infiltrate left base. 3. Moderate stable cardia megaly. HEAD CT NONCONTRAST 02/05/2017 Impression: 1. Subacute left occipital infarct. 2. Moderate chronic small vessel change. 3. No evidence for acute intracranial hemorrhage. ULTRASOUND LEFT UPPER EXTREMITY VENOUS 02/05/2017 IMPRESSION: There is no sonographic evidence of deep venous thrombosis identified in the left upper extremity. MRI OF THE BRAIN WITHOUT AND WITH IV CONTRAST 02/05/2017 FINDINGS: Sagittal T1, axial diffusion, proton density and T2 weighted axial, coronal FLAIR, and pre and post axial T1-weighted images were acquired. These were supplemented with post gadolinium coronal T1 weighted images. No intra or extra-axial mass lesions are visualized. Axial diffusion-weighted images reveal multiple foci of restricted water diffusion involving both cerebellar hemispheres, both occipital lobes, the right temporal lobe, both parietal lobes, both frontal lobes. There is no evidence of ventricular dilatation. Proton density T2-weighted and FLAIR images reveal multiple foci of increased T2 signal, corresponding to the areas of restricted water diffusion. The findings are consistent with innumerable subacute infarcts. There are no abnormal flow voids. There is no evidence of pathologic enhancement. IMPRESSION: Bilateral acute/subacute infarcts involving the cerebellar hemispheres, temporal lobes, occipital lobes, parietal lobes, and frontal lobes. The vascular distribution favors an embolic etiology. CT SCAN OF THE BRAIN WITHOUT IV CONTRAST 02/06/17 FINDINGS: Brain parenchyma: There are age-related involutional changes noting moderate patchy subcortical and periventricular microangiopathic change. There are numerous small foci with loss of walter-white matter differentiation seen throughout the brain. The largest are located within the cerebellar hemispheres, the left occipital lobe, and the high right frontal lobe. These are consistent with subacute/evolving infarcts when correlated with yesterday's MRI. No hemorrhage is seen. There is only mild edema. No midline shift is noted. Mineralization is present in the basal ganglia. No extra-axial fluid collection is seen. Ventricles, sulci, cisterns: Prominent secondary to involutional change. Intracranial vasculature: There is atherosclerotic calcification of the cavernous carotid intervertebral arteries. Calvarium: Unremarkable. Sinuses and mastoids: Trace mucosal thickening is seen in the maxillary antra. The remaining visualized paranasal sinuses are clear. The mastoid air cells are well pneumatized. Orbits: The bony orbits are grossly intact. There is a right ocular lens implant. IMPRESSION: 1. Findings are consistent with numerous/multifocal evolving cortical infarcts as above. 2. There is no hemorrhage identified and no midline shift is seen. ULTRASOUND OF THE CAROTID ARTERIES 02/06/17 IMPRESSION: 1. There is no sonographic evidence of hemodynamically significant stenosis in the right or left carotid arterial system. 2. Antegrade flow is shown in the vertebral arteries. 3. The cardiac waveforms are irregularly irregular. Correlate for evidence of arrhythmia. ULTRASOUND LEFT UPPER EXTREMITY VENOUS 02/06/17 IMPRESSION: There is no sonographic evidence of deep venous thrombosis identified in the left upper extremity. HEAD CT NONCONTRAST 02/07/17 Impression: Multifocal infarcts as described. No acute intracranial hemorrhage. No midline shift. CT HEAD WITHOUT CONTRAST (CT) 02/07/17 IMPRESSION: Multifocal subacute cerebellar and bihemispheric supratentorial infarcts. No evidence of acute hemorrhage. CHEST ONE VIEW PORTABLE 02/09/17 IMPRESSION: Progressive bilateral pulmonary airspace opacities. Small bilateral pleural effusions. Diagnostic considerations include a multifocal pneumonia versus areas of asymmetric pulmonary edema. Clinical and radiographic follow-up is recommended SINGLE VIEW CHEST 02/11/17 IMPRESSION: 1. Cardiomegaly. 2. There are diffuse bilateral airspace opacities, not significantly changed from yesterday. Differential considerations remain multifocal pneumonia, pulmonary edema, pulmonary hemorrhage, and/or ARDS. Clinical correlation will be essential. 3. Layering pleural effusions. CHEST ONE VIEW PORTABLE 02/14/17 IMPRESSION: Unchanged diffuse bilateral parenchymal infiltrative change. Stable moderate cardiomegaly. (Lena Hills PA-C) Medication Reconciliation New Medications: Oxycodone Hcl (Roxycodone Oral Soln) 5 Mg/5 Ml Nany 5 MG PO Q4H PRN for Documentation for 30 Days, #30 DOSE For pain or use of accessory muscles/increased work of breathing. Hold for respiratory rate under 10 Scopolamine (Transderm-Scop) 1 Mg/3 Days Dis 3 MG TD Q72H PRN for Documentation for 30 Days, #30 PATCH Use for secretions. Continued Medications: Albuterol Sulf (Proventil 0.083% 2.5MG/3ML) 2.5 Mg/3 Ml Nebu 3 ML INH QID Carbidopa/Levodopa (Sinemet 25MG/100MG) Tab 2 TAB PO QID Dextromethorphan-Guaifenesin (Robitussin-Dm Syrup) 1 Syp Syp 10 ML PEG Q6 PRN for Cough Finasteride (Proscar) 5 Mg Tab 5 MG PO QAM Tramadol (Ultram) 50 Mg Tab 25 MG PO AMPM Tramadol (Ultram) 50 Mg Tab 25 MG PO Q12 PRN for Breakthrough Pain Discontinued Medications: Alfuzosin Hcl (Uroxatral) 10 Mg Tab 10 MG PO HS Apixaban (Eliquis) 5 Mg Tab 5 MG PO HS Calcium Carbonate-Vitamin D (Calcium 600+D) 1 Tab Tab 1 TAB PO QAM Cholecalciferol (Vitamin D) 1,000 Unit Tab 1000 UNITS PO QAM Fesoterodine Fumarate (Toviaz) 8 Mg Tab 1 TAB PO DAILY Furosemide (Lasix) 40 Mg Tab 40 MG PO PRN PRN for WEIGHT GAIN TAKE 1 TABLET BY MOUTH NEEDED FOR WEIGHT GAIN IF WEIGHT GREATER THAN 195 LBS NOTIFY Ibuprofen (Advil) 200 Mg Tab 200 MG PO Q4 PRN for Fever NEEDED FOR FEVER EQUAL TO OR GREATER THAN 100.4 Levofloxacin (Levaquin) 750 Mg Tab 750 MG PO QAM Melatonin (Melatonin) 3 Mg Tab 3 MG PO QPM Midodrine (Midodrine HCl) 2.5 Mg Tab 2.5 MG PO TID Midodrine Hcl (Midodrine Hcl) 5 Mg Tab 5 MG PO TID Multivitamins/Minerals (Mvi With Minerals) Tab 1 TAB PO DAILY Nystatin (Nystatin) 5 Ml Susp 5 ML PO QID for 10 Days 100,000UNIT/ML Omeprazole (Prilosec) 20 Mg Capcr 20 MG PO QAM Polyethylene Glycol 3350 (Miralax) 1 Pow Pow 17 GM PO QAM Rivastigmine (Exelon) 13.3 Mg/24 Hr Dis 1 PATCH TD QAM REMOVE IN PM Senna (Senokot) 8.6 Mg Tab 1 TAB PO QAM Discharge Exam Subjective Pt evaluation today including: conversation w/ patient, conversation w/ family , physical exam, chart review, lab review, review of studies Pain: None PO Intake: Fair Voiding: arteaga catheter in place The patient was seen and examined this morning. Pt was see with son in [place] pickering at bedside. OT was also at bedside working with the pt. He does not speak very much this morning, but does weakly say yes or no. He notes it hurts when his left arm is extended. He ate 100% of breakfast yesterday per nursing, but then not as much since then. Pt denies any current pain or complaints. Discussion was held regarding hospice. At this time Alec is in agreement with transition to hospice only. I also called and spoke with Bronwyn, the pts daughter , and she is in agreement with this as well. Additional Comments: ROS; not obtained due to somnolence, other than listed per HPI. Objective Vital Signs Date Time Temp Pulse Resp B/P (MAP) Pulse Ox O2 Delivery O2 Flow Rate FiO2 02/14/17 09:28 102 28 118/72 (87) 94 Venturi Mask 6.0 02/14/17 08:35 97 18 95 Mask 6.0 02/14/17 08:00 92 Oxymask 6.0 02/14/17 07:34 36.9 61 16 123/74 (90) 95 Mask 6.0 02/14/17 05:07 36.6 82 20 130/ (43) 98 6.0 02/14/17 04:00 Oxymask 6.0 02/14/17 00:00 Nasal Cannula 4.0 02/13/17 23:46 36.6 74 20 121/62 (81) 91 4.0 02/13/17 21:54 92 Nasal Cannula 4.0 02/13/17 19:52 36.9 101 20 165/95 (118) 94 Nasal Cannula 5.0 02/13/17 19:42 92 18 91 Nasal Cannula 4.0 02/13/17 16:21 88 93 02/13/17 16:04 84 106/67 (80) 02/13/17 16:00 92 Nasal Cannula 02/13/17 16:00 92 Nasal Cannula 4.0 02/13/17 15:39 36.6 68 22 116/72 (87) 94 Humidified Oxygen 4.0 02/13/17 15:25 78 16 93 Nasal Cannula 4.0 02/13/17 12:22 95 Nasal Cannula 6.0 02/13/17 12:04 80 16 95 Nasal Cannula 6.0 02/13/17 11:26 36.4 80 22 114/62 (79) 96 Humidified Oxygen 6.0 Physical Exam Notes: General Appearance: no apparent distress, appears chronically ill, sleeping upon entry to the room, awakens with verbal stimuli, minimally participates in discussion. Eyes: eyes remained closed during exam ENT: hearing grossly normal, mucous membranes are moist Neck: supple, no JVD Respiratory/Chest: + accessory muscle use, + wheezing, (On 4 L via oximask, + improved breath sounds, + minimal inspiratory wheeze, + expiratory wheezing throughout, diminished breath sounds at bases. Cardiovascular: + irregularly irregular, tachycardia with HR in low 100s, + systolic murmur Abdomen: normal bowel sounds, non tender, soft Extremities: no calf tenderness, + pedal edema (minimal BLE, waffle boots in place), moves his toes, ankles, and knees bilaterally on command. Neurologic/Psychiatric: oriented to self, unable to determine if oriented to place or date. Skin: normal color, + slight diaphoresis, + pertinent finding (ecchymosis over upper extremities bilaterally) (Lena Hills PA-C) Hospital Course H&P per Yoselyn Mcintosh PA-C History of Present Illness Source: patient, family (daughter at bedside), clinic records, hospital records , assisted This is an 86 y/o male with a history of atrial fibrillation, BPH, diastolic CHF , Parkinson's disease w/dementia, and alcoholic cirrhosis who presented to the ED on 02/05 with altered mental status. The patient is resident of [facility]. History was obtained largely from patient's daughter who is at bedside. The patient had been having fever and a nonproductive cough for [facility] for the last week or so. The patient had a fever of 103F on and was then given a dose of Rocephin IM before being transitioned to oral Levaquin. The patient continued to become more lethargic and altered. The daughter states this patient is typically fairly well-oriented and only occasionally confused, but for the last few days he has been disoriented and less responsive than usual. The patient does not typically wear oxygen and is usually able to get up and move around with the help of a walker. Unable to obtain reliable review of systems from patient due to altered mental status. General appearance: +Obese. Lethargic. Well-developed, well-nourished, no apparent distress Head: Normocephalic, atraumatic Eyes: +Unable to assess EOM due to mental status. Normal inspection, PERRL ENT: +Dry oral mucosa. Normal ENT inspection, hearing grossly normal, pharynx normal Neck: Supple, no JVD, trachea midline Respiratory/Chest: +Crackles diffuse throughout. Dyspneic, mild respiratory distress. Appears to be using accessory muscles. Cardiovascular: +Irregularly irregular, rate controlled. Systolic murmur. No gallop Abdomen/GI: Normal bowel sounds, non-tender, soft Extremities/Musculoskeletal: +LUE edematous. Normal inspection, no calf tenderness, no pedal edema Neurological/Psych: +Disoriented to place and time (knew month but not year). Lethargic. Normal mood/affect Skin: Normal color, warm/dry, no rash Hospital Course: 86 y/o male with a history of chronic diastolic CHF, Parkinson's disease w/ mild dementia, h/o falls, chronic atrial fibrillation on Eliquis, HTN, with known orthostasis/autonomic insufficiency, cirrhosis with evidence of portal HTN , history of right renal mass, moderate aortic stenosis, suspected pulmonary fibrosis, and BPH who presented to the ED on 02/05 with altered mental status. Pt was found to be sepsis with acute metabolic encephalopathy secondary to LLL HCAP and acute hypxemic respiratory failure. He was treated with intravenous antibiotics, for a total of 7 day course as below. Pt was found to have multiple ischemic embolic acute and subactue CVAs. This may have been due to failure on Eliquis with once daily dosing, however it was unknown if this was reduced for creatinine clearance or age as an outpatient. Cardiology, Neurology, PT/OT, speech therapy were all consulted during the patients stay. It was decided by the family that it would be the patient's wished to transition to hospice. He was stable for discharge to [facility] where he will be on hospice. 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 - MRI brain shortly after admission shows innumerable CVAs in embolic pattern in all vascular distributions - Pt was on eliquis 5 mg once daily MANAGER PORTABLE, so was placed on heparin gtt to cover for embolic CVAs, now back to Eliquis 5 mg BID - will d/c on discharge - Neuro and cards on board- appreciate - mental status waxes and waves. - Speech eval- purred diet with nectar thick liquids. - PT/OT/ST evals - Palliative Care consult appreciated - Dr. Razo to see the patient this afternoon. - CM on board - have asked to start referrals for back to [facility] as the pt does not seem to be advancing much. His prognosis is unfortunately poor in regards to regaining mobility function, discharge when bed available for PT/OT and can transition to hospice once at [facility]. Chronic A-fib on Eliquis. LUE paresis - Found Eliquis was being dosed 5 mg QHS for the last 16 months as an outpt. So can not consider this a failure of Eliquis. Discussed with family by Dr. Do last week. Question if this was renally dosed due to age and creatinine clearance by outpatient provider as its unlikely this would be discounted by multiple providers. - ECHO completed without valvular abnormalities, unlikely septic emboli - afib most likely cause Elevated troponin-likely secondary to demand ischemia in setting of sepsis and CVA -Trop peaked on admission at 2.2, then trended downward - Cards input appreciated Acute on chronic diastolic CHF Severe , mild AI, Pleural effusions - dc lasix 20mg IV qAM - 2 D echo completed Hypokalemia - K+ 3.3 yesterday, replaced. No further lab draws BPH-no issues - Cont alfuzosin 10 mg PO qhs and finasteride 5 mg PO qhs -continue Arteaga now to prevent outlet obstruction and while bed bound Parkinson's disease w/dementia - Cont Sinemet 25/100 2 tabs PO QID at time of discharge - continue to hold Exelon 13.3 mg patch TD Orthostatic hypotension-no issues currently - Stop midodrine DVT ppx: Eliquis, teds, scds Code Status: DNR Disposition: Discharge today on hospice care to [facility]. Total Time Spent: Greater than 30 minutes This includes examination of the patient, discharge planning, medication reconciliation, and communication with other providers. (Lena Hills PA-C) WANDA Physician Supervision Note: I interviewed and examined the patient. Discussed with Lena Hills PAC and agree with findings and plan as documented in the note. Any exceptions or clarifications are listed here: None Embolic CVA from atrial fibrillation with lethargy and weakness Multilobar pneumonia with metabolic encephalopathy Atrial fibrillation family had long discussion with Alana Hills and have chosen to return to snf and proceed to hospice comfort measures Pt was mildly arousable on discharge, will proceed to support comfort measures Documented By: Sushil Jhaveri (Sushil Jhaveri M.D.) (Sushil Jhaveri M.D.) Discharge Instructions Please refer to the electronic Patient Visit Report (Discharge Instructions) for additional information. (Lena Hills PA-C) Follow-Up Follow up with hospice care at [facility] within 24 hours of arrival there. (Lena Hills PA-C) Additional Copies To Darrius Cardoza M.D.
== END 2017-02-14 15:13 | disposition hospice, inpatient (51) | DRG 871 ==
LOC: EDBD 09:12 → C.EDB 09:14 → C.MED 14:00 → ENRESERV 15:31
PROVIDERS: ADMIT Hospitalist; ATTEND Internal Medicine
DX: A41.9 Sepsis, unspecified organism (principal); G93.41 Metabolic encephalopathy; I63.40 Cerebral infarction due to embolism of unspecified cerebral artery; I50.33 Acute on chronic diastolic (congestive) heart failure; J96.01 Acute respiratory failure with hypoxia; J18.9 Pneumonia, unspecified organism; I24.8 Other forms of acute ischemic heart disease; E87.0 Hyperosmolality and hypernatremia; K76.6 Portal hypertension; E87.1 Hypo-osmolality and hyponatremia; Y95 Nosocomial condition; G20 Parkinson's disease; F02.80 Dementia in other diseases classified elsewhere, unspecified severity, without behavioral disturbance, psychotic disturbance, mood disturbance, and anxiety; I48.2 Chronic atrial fibrillation; Z66 Do not resuscitate; Z51.5 Encounter for palliative care; R79.89 Other specified abnormal findings of blood chemistry; N40.0 Benign prostatic hyperplasia without lower urinary tract symptoms; K70.30 Alcoholic cirrhosis of liver without ascites; E86.0 Dehydration; R00.1 Bradycardia, unspecified; R53.1 Weakness; I11.0 Hypertensive heart disease with heart failure; R60.0 Localized edema; I95.1 Orthostatic hypotension; G90.8 Other disorders of autonomic nervous system; I35.0 Nonrheumatic aortic (valve) stenosis; J84.10 Pulmonary fibrosis, unspecified; Z96.659 Presence of unspecified artificial knee joint; Z85.528 Personal history of other malignant neoplasm of kidney; Z79.899 Other long term (current) drug therapy; Z79.1 Long term (current) use of non-steroidal anti-inflammatories (NSAID); Z79.891 Long term (current) use of opiate analgesic; Z91.81 History of falling; Z79.01 Long term (current) use of anticoagulants